=== PATIENT | male | born 1950 | race Caucasian/White ===

== ENCOUNTER 2020-09-03 02:55 | Inpatient (IN) | payer MEDICARE, OTHER, SELFPAY ==
[2020-09-03] VITALS (9 sets, daily range): BP systolic 120–144; BP diastolic 85–95; PULSE 86–93; RESP 14–167; TEMP 33.8–36.9; O2SAT 94–100; BMI 18.2
--- NOTE | ~2020-09-03 | CT_ITS ---
EXAMINATION: CT HEAD WITHOUT CONTRAST CLINICAL INFORMATION: Hallucinations. COMPARISON: None. TECHNIQUE: Contiguous helical images of the brain were obtained without IV contrast. Multiplanar reconstructions were performed. DLP: 670 mGy-cm. FINDINGS: There are no pathologic extra-axial fluid collections. The lateral, third, fourth ventricles are nondilated and concordant with the appearance of the sulci. There is no evidence for acute intraparenchymal hemorrhage or infarct. There is neither mass nor mass effect. There is no shift of midline structures. The paranasal sinuses and mastoid air cells are clear. There are no osseous lesions. CT/CT head/brain wo con IMPRESSION: No evidence for acute intracranial injury. Automated exposure control (Care Dose) Adjustment of the mA and/or kv according to patient size (this includes techniques or standardized protocols for targeted exams where dose is matched to indication / reason for exam; i.e. extremities or head).
--- NOTE | ~2020-09-03 | MR_ITS ---
EXAMINATION: MR BRAIN WITHOUT CONTRAST CLINICAL INFORMATION: Altered mental status. COMPARISON: CT head from 09/03/2020. TECHNIQUE: MRI of the brain was obtained using routine sequences without contrast. FINDINGS: No focal restricted diffusion is demonstrated to suggest acute or subacute cerebral ischemia. No evidence of acute or chronic hemorrhagic products on heme-sensitive imaging. Scattered periventricular and deep white matter T2 FLAIR hyperintensities consistent with mild underlying migraine angiopathy. Proportional prominence of the ventricles and sulcal spaces without evidence of obstructive hydrocephalus. No abnormal mass effect. No midline shift. Normal appearance of the pituitary gland. No abnormalities of the posterior fossa with normal appearance of the brainstem and cerebellum. Normal positioning of the cerebellar tonsils. Normal arterial and venous vascular flow voids are present. Normal, homogeneous marrow signal. Mild mucosal thickening of the paranasal sinuses. No signal abnormalities within the mastoids. MR/MR head/brain wo con IMPRESSION: 1. No acute intracranial abnormalities. 2. Mild underlying microangiopathy and generalized cerebral volume loss.
--- NOTE | ~2020-09-03 | MR_ITS ---
EXAMINATION: MR ABDOMEN WITHOUT CONTRAST CLINICAL INFORMATION: History of left nephrectomy for renal cell carcinoma. COMPARISON: None. TECHNIQUE: MR abdomen is performed without gadolinium contrast. Patient refused contrast administration. Motion limited evaluation. FINDINGS: LUNG BASES: The visualized lung bases are unremarkable. LIVER, GALLBLADDER, AND BILIARY TREE: The liver is normal in size, smooth in contour, and normal in signal. No biliary ductal dilatation. There is a 1.2 cm T2 bright lesion in the right lobe of the liver.. The gallbladder is unremarkable with no evidence of gallbladder wall thickening, or obvious pericholecystic inflammatory changes. PANCREAS: Unremarkable. SPLEEN: Unremarkable. ADRENAL GLANDS: Grossly unremarkable. KIDNEYS AND URETERS: Left nephrectomy. Normal size and shape of the right kidney. No hydronephrosis. No perinephric inflammation. Exophytic T2 bright lesions are seen. Upper pole cyst measures 1.1 cm. 0.4 cm midpole cyst. No mass in the left nephrectomy bed. GASTROINTESTINAL TRACT: No bowel obstruction. No ascites or fluid collection. ABDOMINAL WALL: No significant hernia is appreciated. LYMPH NODES: No lymphadenopathy. VASCULAR: Unremarkable. OSSEOUS STRUCTURES: Marrow signal normal. MR/MR abdomen wo con IMPRESSION: Limited study due to lack of IV contrast and motion. Status post left nephrectomy. Likely simple cysts in the right kidney. No lymphadenopathy. No mass in the left nephrectomy bed.
--- NOTE | 2020-09-03 03:46 | ED.PSYCH ---
HPI - Psych General Chief Complaint: Psychiatric Symptoms Stated Complaint: SEC 12 CRISIS Time Seen by Provider: 09/03/20 03:46 Source: patient Mode of arrival: EMS Limitations: altered mental status History of Present Illness HPI Narrative: Patient with ?psychotic disorder been having visual hallucinations thinking people in the house not eating well details are not available patient was seen by N at scene and Section 12 no head injury details of home situation not available at this time patient denies any suicidal ideation no auditory hallucination Related Data Allergies Allergy/AdvReac Type Severity Reaction Status Date / Time No Known Allergies Allergy Verified 09/03/20 03:47 Review of Systems Review of Systems: Constitutional : No Fever, No Chills ENT/Mouth : No Ear Pain, No Nasal Congestion, No sore throat Eyes: No Eye Pain, No Swelling, No Redness Cardiovascular : No Chest Pain, No SOB Respiratory : No Cough, No Sputum, No Dyspnea Gastrointestinal : No Nausea, No Vomiting, No Diarrhea, No Hematochezia, No Melena Genitourinary : No Dysuria, No Urinary Frequency, No Hematuria Musculoskeletal : No Myalgias Skin : No Skin Lesions, No rash Neuro : No Weakness, No Numbness, No Paresthesias, No Dizziness, No Headache Psych : positive Anxiety, neg Depression, neg SI/HI, hallucinations+ Heme/Lymph: No Lymphadenopathy Endocrine : No Polyuria, No Polydipsia Yes Unobtainable due to mental status PMFSH Past Medical History Surgical History History of kidney surgery Social History Social History Smoked in Last 30 Days: Yes Use of substances other than those prescribed or required for medical reasons: No Advance Directives: No Advance Directives Information Provided: No Physical Exam Vital Signs: Vital Signs: Last Vital Signs Temp 98.4 F 09/03/20 03:01 Pulse 93 09/03/20 03:01 Resp 16 09/03/20 03:01 BP 128/88 09/03/20 03:01 Pulse Ox 94 09/03/20 03:01 Body Mass Index 18.2 Const: General: comfortable and no acute distress Orientation/consciousness: oriented to person and oriented to place HENMT: Head: Yes normocephalic and Yes atraumatic Ears: hearing grossly normal bilaterally General nose exam: Normal external nose present Face and sinus: Yes normal facial exam Mouth: Normal oral and palatal mucosa present Eyes: General: appearance normal, both eyes and all related structures Neck: Neck: Yes normal visual inspection and Yes no meningeal signs Chest: Chest palpation & inspection: normal palpation of entire chest wall Resp: Effort & Inspection: normal respiratory effort Auscultation: clear to auscultation bilaterally, no crackles, no rales and no rhonchi Cardio: Palpation: normal PMI Rate: regular rate Rhythm: regular rhythm Heart sounds: S1 normal heart sound present and S2 normal heart sound present Peripheral pulses: Peripheral pulses 2+ throughout GI: Inspection: Yes normal to inspection Palpation (GI): Soft to palpation and nontender Percussion: Yes normal to percussion Auscultation: normal bowel sounds : General: Yes no CVA tenderness Back/Spine/Pelvis: Back: no CVA tenderness Thoracic/Lumbar Spine: thoracic and lumbar spine normal to inspection Skin: General skin exam: no rashes or lesions noted Neuro: General: oriented to person, oriented to place, gait normal, tone normal, moves all extremities, Normal light touch and pain sensation, no meningeal signs, no focal motor deficits, CN's II-XI intact bilaterally and normal sensation to monofilament Extrem: General: Yes normal to inspection, Yes no pedal edema and Yes no calf tenderness Psych: Appearance: grossly normal Mental Status: other (Confused) Speech and movement: Normal speech and movement present Affect: Indifferent affect present Attitude: cooperative Thought process: Circumstantial thought process present Thought content: Hallucination(s) present Insight: Limited insight present (Psych) Judgement: Limited judgement present (Psych) MDM - Psych MDM Narrative Medical decision making narrative: Patient with nonspecific psychotic disorder already Section 12 by [facility] for inpatient psych admission lab workup is in a stable CT scan head is negative for any acute Lab Data Attestation: I reviewed the patient's lab results. Result diagrams: 09/03/20 04:25 09/03/20 04:25 Labs: Lab Results 09/03/20 09/03/20 09/03/20 Range/Units 04:25 04:25 04:25 WBC 6.3 (4.8-10.8) X10*3/uL RBC 5.09 (4.60-5.80) X10*6/uL Hgb 15.2 (14.0-18.0) g/dl Hct 45.6 (42-52) % MCV 89.6 (80-98) fL MCH 29.9 (27.0-33.0) pg MCHC 33.3 (31.0-36.0) g/dl RDW 12.2 (11.0-16.0) % Plt Count 152 L (160-400) X10*3/uL MPV 10.4 (9.4-12.4) fL Immature Gran % (Auto) 0.2 (0.0-0.4) % Neut % (Auto) 65.7 (45-73) % Lymph % (Auto) 21.7 (20-40) % [place] % (Auto) 10.8 (2-11) % Eos % (Auto) 1.1 (0-4) % Baso % (Auto) 0.5 (0-2) % Lymph # (Auto) 1.4 (1.2-4.9) X10*3/uL [place] # (Auto) 0.7 (0.1-1.2) X10*3/uL Eos # (Auto) 0.1 (0.0-0.4) X10*3/uL Baso # (Auto) 0.0 (0.0-0.2) X10*3/uL Abs Immat Gran (auto) 0.01 (0.00-0.03) X10*3/uL Absolute Neuts (auto) 4.1 (2.0-8.3) X10*3/uL Absolute Nucleated RBC 0.000 (0.0-0.012) X10*3/uL Nucleated RBC % (auto) 0.0 (0.0-0.2) /100WBC PT 13.8 H (10.8-13.0) SEC INR 1.2 H (0.9-1.1) Sodium 141 (135-145) mmol/L Potassium 4.0 (3.3-5.1) mmol/L Chloride 105 (96-108) mmol/L Carbon Dioxide 29 (22-29) mmol/L Anion Gap 11 L (12-20) BUN 32 H (9-16) mg/dL Creatinine 1.22 (0.5-1.4) mg/dL Estim Creat Clear Calc 43.9 Estimated GFR 59 Random Glucose 86 (60-115) mg/dL Calcium 8.7 (8.4-10.2) mg/dL Total Bilirubin 0.6 (0.0-1.0) mg/dL Direct Bilirubin 0.3 (0.0-0.5) mg/dL AST 20 (5-37) U/L ALT 16 (0-40) U/L Alkaline Phosphatase 43 (39-117) U/L Total Protein 5.5 L (6.5-8.0) g/dL Albumin 3.6 (3.5-5.0) g/dL COVID-19 (TIO) (Negative) COVID-19 Clin Com 09/03/20 Range/Units 04:25 WBC (4.8-10.8) X10*3/uL RBC (4.60-5.80) X10*6/uL Hgb (14.0-18.0) g/dl Hct (42-52) % MCV (80-98) fL MCH (27.0-33.0) pg MCHC (31.0-36.0) g/dl RDW (11.0-16.0) % Plt Count (160-400) X10*3/uL MPV (9.4-12.4) fL Immature Gran % (Auto) (0.0-0.4) % Neut % (Auto) (45-73) % Lymph % (Auto) (20-40) % [place] % (Auto) (2-11) % Eos % (Auto) (0-4) % Baso % (Auto) (0-2) % Lymph # (Auto) (1.2-4.9) X10*3/uL [place] # (Auto) (0.1-1.2) X10*3/uL Eos # (Auto) (0.0-0.4) X10*3/uL Baso # (Auto) (0.0-0.2) X10*3/uL Abs Immat Gran (auto) (0.00-0.03) X10*3/uL Absolute Neuts (auto) (2.0-8.3) X10*3/uL Absolute Nucleated RBC (0.0-0.012) X10*3/uL Nucleated RBC % (auto) (0.0-0.2) /100WBC PT (10.8-13.0) SEC INR (0.9-1.1) Sodium (135-145) mmol/L Potassium (3.3-5.1) mmol/L Chloride (96-108) mmol/L Carbon Dioxide (22-29) mmol/L Anion Gap (12-20) BUN (9-16) mg/dL Creatinine (0.5-1.4) mg/dL Estim Creat Clear Calc Estimated GFR Random Glucose (60-115) mg/dL Calcium (8.4-10.2) mg/dL Total Bilirubin (0.0-1.0) mg/dL Direct Bilirubin (0.0-0.5) mg/dL AST (5-37) U/L ALT (0-40) U/L Alkaline Phosphatase (39-117) U/L Total Protein (6.5-8.0) g/dL Albumin (3.5-5.0) g/dL COVID-19 (TIO) Negative (Negative) COVID-19 Clin Com See Note Imaging Data CT scan - head: Radiologist's impression: CLINICAL INFORMATION: Hallucinations. COMPARISON: None. TECHNIQUE: Contiguous helical images of the brain were obtained without IV contrast. Multiplanar reconstructions were performed. DLP: 670 mGy-cm. FINDINGS: There are no pathologic extra-axial fluid collections. The lateral, third, fourth ventricles are nondilated and concordant with the appearance of the sulci. There is no evidence for acute intraparenchymal hemorrhage or infarct. There is neither mass nor mass effect. There is no shift of midline structures. The paranasal sinuses and mastoid air cells are clear. There are no osseous lesions. CT/CT head/brain wo con IMPRESSION: No evidence for acute intracranial injury. Automated exposure control (Care Dose) Adjustment of the mA and/or kv according to patient size (this includes techniques or standardized protocols for targeted exams where dose is matched to indication / reason for exam; i.e. extremities or head). ECG Data Attestation: I personally reviewed and interpreted this ECG as follows: Interpretation: Normal sinus rhythm heart rate 85 beats per minute normal intervals normal axis no acute ischemic changes impression normal EKG
--- NOTE | 2020-09-03 03:48 | ECG_ITS ---
Test Reason : PHYC Blood Pressure : / mmHG Vent. Rate : 085 BPM Atrial Rate : 085 BPM P-R Int : 142 ms QRS Dur : 094 ms QT Int : 366 ms P-R-T Axes : 075 026 046 degrees QTc Int : 435 ms Normal sinus rhythm Normal ECG No previous ECGs available Referred By: Truman Sanches Electronically Signed By:ZAIRA GARRISON MD
[2020-09-03 04:30] LABS: MANUAL DIFF FLAG NO
[2020-09-03 04:31] LABS: Basophils Percent Auto 0.5 % (0-2); Eosinophils Absolute Auto 0.1 X10*3/uL (0.0-0.4); Eosinophils Percent Auto 1.1 % (0-4); Hematocrit 45.6 % (42-52); Hemoglobin 15.2 g/dl (14.0-18.0); Imm Gran Abs Auto 0.01 X10*3/uL (0.00-0.03); Imm Gran Pct Auto 0.2 % (0.0-0.4); Lymphocytes Absolute Auto 1.4 X10*3/uL (1.2-4.9); Lymphocytes Percent Auto 21.7 % (20-40); Mean Corpuscular HGB Conc 33.3 g/dl (31.0-36.0); Mean Corpuscular Hemoglobin 29.9 pg (27.0-33.0); Mean Corpuscular Volume 89.6 fL (80-98); Mean Platelet Volume 10.4 fL (9.4-12.4); Monocytes Absolute Auto 0.7 X10*3/uL (0.1-1.2); Monocytes Percent Auto 10.8 % (2-11); Neutrophils Absolute Auto 4.1 X10*3/uL (2.0-8.3); Neutrophils Percent Auto 65.7 % (45-73); Platelet Count 152 X10*3/uL (160-400); Red Blood Count 5.09 X10*6/uL (4.60-5.80); Red Cell Distribution Width 12.2 % (11.0-16.0); White Blood Count 6.3 X10*3/uL (4.8-10.8)
[2020-09-03 04:37] LABS: INTERNATIONAL NORM RATIO 1.2 (0.9-1.1); Prothrombin Time 13.8 SEC (10.8-13.0)
[2020-09-03 04:46] LABS: COVID-19 Test Negative (Negative); IDNOW Serial# 9DD0AD1C
[2020-09-03 04:55] LABS: Alanine Aminotransferase 16 U/L (0-40); Albumin Level 3.6 g/dL (3.5-5.0); Alkaline Phosphatase 43 U/L (39-117); Anion Gap 11 (12-20); Aspartate Amino Transferase 20 U/L (5-37); Bilirubin Direct 0.3 mg/dL (0.0-0.5); Bilirubin Total 0.6 mg/dL (0.0-1.0); Blood Urea Nitrogen 32 mg/dL (9-16); Calcium 8.7 mg/dL (8.4-10.2); Carbon Dioxide 29 mmol/L (22-29); Chloride 105 mmol/L (96-108); Creatinine Clr Calc Pharmacy 43.9; Estimated Glomerular Filt Rate 59; Glucose Random 86 mg/dL (60-115); Sodium 141 mmol/L (135-145); Total Protein 5.5 g/dL (6.5-8.0)
--- NOTE | 2020-09-03 07:34 | PC.NURSE ---
PT RESTING PEACEFULLY IN THE STRETCHER, ALERT AND ORIENTED, SKIN PWD, RESPIRATIONS EVEN AND UNLABORED. PT AWARE OF PLAN TO BE PLACED IN A [facility]. PT DENIES SI/HI AT THIS TIME. SITTER AT BEDSIDE
--- NOTE | 2020-09-03 21:33 | PC.NURSE ---
PT RESTING IN BED SKIN PWD RESPIRATIONS EVEN UNLABORED. FLAT AFFECT, PLEASANT WITH RN, OFFERS NO COMPLAINTS AT THIS TIME. PO AT BEDSIDE FOR SAFETY, S12 BEDSEARCH CONTINUES.
--- NOTE | 2020-09-04 00:09 | PC.NURSE ---
PT AMB TO BATHROOM STEADY GAIT, PO FLUIDS ENCOURAGED. OFFERS NO COMPLAINTS AT THIS TIME. PO AT BEDSIDE FOR SAFETY, GERIPSYCH BEDSEARCH CONTINUE.S
--- NOTE | 2020-09-04 01:47 | PC.NURSE ---
PT RESTING IN BED EYES CLOSED SKIN PWD RESPIRATIONS EVEN UNLABORED. GERBITAYCH BEDSEARCH CONTINUES. PO AT BEDSIDE FOR SAFETY.
[2020-09-04 05:10] VITALS: BP 138/97; PULSE 84; RESP 18; TEMP 36.9; O2SAT 96
[2020-09-04 07:37] VITALS: BP 156/113; PULSE 92; RESP 16; O2SAT 97
--- NOTE | 2020-09-04 08:30 | PC.NURSE ---
pt able to state first name, unable to state last name or date of or where he is. pt avoids eye contact and does not respond verbally after providing first name, mostly stares blankly into space. respiratory effort is unlabored and rate is even. pt unable to respond when asked if he is in pain. pt unable to say if he is experiencing visual/auditory/tactile hallucinations when asked. pt reluctant to move voluntarily/assist in having vitals taken, this nurses needed to lift his arm to put blood pressure cuff on. pt resumed sleeping in right lateral position after assessment. no signs of distress noted at this time. call josue in reach.
--- NOTE | 2020-09-04 08:47 | PC.NURSE ---
when asked if he is feeling suicidal/homicidal at this time pt ?chooses not to respond. md vizcaino
--- NOTE | 2020-09-04 09:30 | PC.NURSE ---
pt did not eat any breakfast this morning. fluids encouraged. aware
[2020-09-04 14:21] VITALS: BP 141/99; PULSE 98; RESP 14; TEMP 36.8; O2SAT 96
--- NOTE | 2020-09-04 14:45 | PC.NURSE ---
Pt daughter Alicia ([phone]) called for an update on [facility]. She was informed that we are continuing to search for a bed in a [facility]. Alicia requested to be informed when a bed is found. Case management/MD notified.
--- NOTE | 2020-09-04 20:48 | PC.NURSE ---
Pt ate 2 sandwiches and gingerale. Tolerating po well. Making slight eye contact, cooperative.
--- NOTE | 2020-09-04 21:50 | PC.NURSE ---
Pt transferred into hospital bed, offered and changed into clean hospital pants. Pt denied assistance w/ personal hygeine (i.e brushing teeth, ect), even after encouragement. Pt ambulated w/ steady but slow gait to bathroom, unsuccessful attempt to collect urine sample. Pt requested and given cup of water. PO at bedside. Pt is calm, cooperative, flat affect remains but is making some eye contact, able to express some needs at this time. Denies si/hi.
[2020-09-04 22:58] VITALS: BP 128/92; PULSE 102; RESP 16; TEMP 36.7; O2SAT 98
[2020-09-05 06:00] VITALS: BP 139/102; PULSE 96; RESP 15; O2SAT 96
[2020-09-05 14:57] VITALS: BP 123/98; PULSE 74; RESP 14; O2SAT 97
--- NOTE | 2020-09-05 19:56 | PC.NURSE ---
Report taken from Brett, this RN resuming care. Pt found wandering the halls, not wearing a mask. This RN provided pt with a mask and explained to him that he is not able to wander the halls. Pt redirected back into room. This RN explaining to pt that a urine sample was never obtained, yet ordered. Pt provided with a urinal but refusing to provide urine sample at this time. Pt refusing VS at this time, denies pain, appears calm but not cooperative with care. Dinner remains on tray, untouched, pt encouraged by this RN to eat, assisted into bed. Sitter at bedside, continue to monitor.
[2020-09-05 20:05] VITALS: BP 148/101; PULSE 103; RESP 18; O2SAT 96
--- NOTE | 2020-09-05 20:09 | PC.NURSE ---
Urine sample obtained by electrical engineering technician. VSS. Sitter at bedside, continue to monitor.
[2020-09-05 20:26] LABS: Appearance Urine CLEAR; Color Urine YELLOW; Glucose Urine UA NEG (NEG); Leukocyte Esterase Urine NEG (NEG); Nitrite Urine NEG (NEG); PH 5.5 (5.0-8.0); Specific Gravity - Urine >= 1.030 (1.005-1.025); Urine Blood TRACE (NEG); Urine Ketones NEG (NEG); Urine Protein TRACE MG/DL (NEG-TRACE)
[2020-09-05 20:32] LABS: Bacteria Urine 1+ /LPF; WBC Urine 0 /HPF (0-4)
[2020-09-05 20:33] LABS: Calcium Oxalate Crystals Urine 1+ /LPF
[2020-09-06 06:03] VITALS: BP 122/96; PULSE 113; RESP 16; O2SAT 95
--- NOTE | 2020-09-06 08:30 | PC.NURSE ---
Section 12 Bedsearch. Psych consult to be ordered. Pt with flat affect, frequently getting out of room and attempts to enter other patients room needing much re direction. Does not verbally respond back when spoken to. Guarded.
[2020-09-06] MEDS: LORazepam 2 MG/ML VIAL IM (09:47)
--- NOTE | 2020-09-06 09:47 | PC.NURSE ---
Addendum entered by Yulisa Bowen 09/06/20 18:45: Pt also noted to be disorganized and not oriented Original Note: Pt intrusive going into peoples rooms, uncooperative, raising hands to staff, unable to redirect, Ativan 2mg IM given to left Deltoid
[2020-09-06 09:49] VITALS: BP 148/98; PULSE 112; RESP 16; O2SAT 97
--- NOTE | 2020-09-06 10:39 | PC.NURSE ---
Pt sleeping, vitals stable
--- NOTE | 2020-09-06 12:18 | P.CNGPS_ITS ---
Geriatric Psych - HPI History of Present Illness Date of Service: 09/06/20 Chief complaint: SEC 12 CRISIS Narrative: Patient is a 70 year old male currently awaiting psychiatric admission for recent onset of auditory and visual hallucinations. Information for evaluation obtained via chart review, collateral from daughter and review of crisis evaluation. Patient was asleep after having been medicated for agitation, when this automotive service writer went to see him. Per daughter, at baseline patient is quite independent, high functioning and social person. She reports that a little over a month ago patient was told that his eye sight was going to progressively get worse and there was no treatment for it and since then she noted that he became increasingly depressed--decreased motivation, decreased self worth, decreased appetite, increasing sadness and increasing isolation. She notes that about a week or so ago he began to make statements about people watching him, fearing little people were in his home with cameras taking pictures of him. 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 Daughter states patient has never been psychiatrically admitted, but her mother reported to her that about 20 years ago patient had a very similar presentation which mother reported as a nervous breakdown and patient stayed at his mother's home for about 2 months until sx subsided. Mother reported that patient was prescribed medications during this time, but he did not take them. Patient denies any knowledge of geovanna or hypomania episodes. She states patient does not like to take medications and is usually somewhat skeptical of medical providers. Daughter notes that patient has lost about 15 lbs in the last month. During time in the ED patient has been requiring redirection due to wandering behaviors, earalier today required IM lorazepam due to increasing agitation and attempting to hit staff. Per patient observer, patient has not been sleeping well. Geriatric Psychiatry - ROS Review of Systems ROS Unobtainable: Unobtainable due to mental status (asleep ) Geriatric Psychiatry - Results Labs CBC & Chem 7: 09/03/20 04:25 09/03/20 04:25 Labs: Urine 09/05/20 Range/Units 20:08 Urine Color YELLOW Urine Appearance CLEAR Urine pH 5.5 (5.0-8.0) Ur Specific [place] >= 1.030 H (1.005-1.025) Urine Protein TRACE (NEG-TRACE) MG/DL Urine Glucose (UA) NEG (NEG) MG/DL Geriatric Psychiatry - [facility] Surgical History Surgical History History of kidney surgery Social History Social History Smoked in Last 30 Days: Yes Use of substances other than those prescribed or required for medical reasons: No Advance Directives: No Advance Directives Information Provided: No Meds Allergies Allergy/AdvReac Type Severity Reaction Status Date / Time No Known Allergies Allergy Verified 09/03/20 03:47 Active Medications: Current Medications Generic Name Dose Route Start Last Admin Trade Name Freq PRN Reason Stop Dose Admin Lorazepam 1 mg 09/04/20 09:11 Lorazepam 1 Mg Tablet PO Q8H PRN anxiety Non-Formulary Medication 1 tab 09/04/20 09:11 Aspirin-Caffeine [Anacin] PO Q6H PRN Headache Non-Formulary Medication 1 drop 09/04/20 09:15 Brimonidine-Timolol [Combigan] EYE-BOTH BID [facility] Pharmacy Consult 1 each 09/03/20 09:51 Consult Rx Perform Med Rec MISCELLANE ONCE PRN Consult order Home Medications Medication Instructions Recorded Confirmed Last Taken Type aspirin-caffeine [Anacin] 1 tab PO Q6H PRN 09/03/20 09/03/20 Unknown History brimonidine-timolol [Combigan] 1 drp OPHTHALMIC (EYE) BID 09/03/20 09/03/20 Unknown History lorazepam 1 tab PO Q8H PRN 09/04/20 09/04/20 Unknown History Geriatric Psychiatry - Exam Vital Signs and I&O: Vital Signs Temp 98.0 F 09/04/20 22:58 Pulse 112 H 09/06/20 09:49 Resp 16 09/06/20 09:49 BP 148/98 H 09/06/20 09:49 Pulse Ox 97 09/06/20 09:49 Narrative Exam Narrative: patient asleep when this automotive service writer presented to interview. Geriatric Psychiatry - A/P Assessment and plan (1) Major depression with psychotic features: Status: Acute Assessment and Plan: * Risperdal 0.5mg BID and 0.25mg PRN for agitation * Mirtazipine 7.5mg QHS * monitor patient to ensure he is eating and drinking given recent weightloss * provide reassurance as necessary
--- NOTE | 2020-09-06 16:27 | PC.NURSE ---
Pt sleeping since Ativan administration. Up and ambulatory x1 to void and BTB. vitals stable.
[2020-09-06 16:28] VITALS: BP 109/76; PULSE 92; RESP 16; O2SAT 95
--- NOTE | 2020-09-06 16:29 | PC.NURSE ---
Pt did ot eat breakfast or lunch. Pt asleep at this time, assessments done but limited d/t pt sleeping at this time. While pt awake, pt did not verbally respond
[2020-09-06 17:45] VITALS: BP 125/74; PULSE 93; RESP 14
--- NOTE | 2020-09-06 18:44 | PC.NURSE ---
BHN in to perfom MSU however pt is still asleep at this time
--- NOTE | 2020-09-06 21:34 | PC.NURSE ---
PT UP AND TRYING TO WALK INTO OTHER'S ROOM. PT REDIRECTED BY SITTER. WILL CONTINUE TO MONITOR PT.
--- NOTE | 2020-09-06 22:43 | PC.NURSE ---
SPOKE WITH DAUGHTER FOR UPDATE WITH PT'S APPROVAL.
[2020-09-06] MEDS: Mirtazapine 7.5 MG TABLET PO (23:07)
[2020-09-06 23:29] VITALS: RESP 18
[2020-09-07] MEDS: risperiDONE 0.5 MG TABLET PO ×2 (02:00→20:37)
--- NOTE | 2020-09-07 05:13 | PC.NURSE ---
PT REFUSING MEDS STATING I DON'T TRUST YOU . MD AWARE. PT REMAINS WITH SITTER AT BEDSIDE. WILL CONTINUE TO MONITOR PT.
[2020-09-07] MEDS: risperiDONE 0.25 MG TABLET PO (06:00)
[2020-09-07 07:23] VITALS: PULSE 124; RESP 16; O2SAT 99
--- NOTE | 2020-09-07 08:10 | PC.NURSE ---
pt spoke with daughter Alicia on the phone this morning. pt calm and cooperative when talking on phone. no questions or concerns at this time.
[2020-09-07 08:12] VITALS: RESP 16
--- NOTE | 2020-09-07 09:34 | PC.NURSE ---
pt refusing morning meds (Risperidone 0.5mg) at this time, pt informed that if he changes his mind and wants to take medication to let this nurse know. md vizcaino
[2020-09-07 12:02] VITALS: RESP 16
--- NOTE | 2020-09-07 18:14 | PC.NURSE ---
Pt transferred from main ED, oriented to unit. Pt appears to be paranoid, reporting stories of 'drunks' and people poisoning one another. Pt also stating 'I didn't kill anybody.'
[2020-09-07] MEDS: Mirtazapine 7.5 MG TABLET PO (20:37)
[2020-09-08 06:00] VITALS: BP 107/71; PULSE 106; RESP 18; TEMP 36.4; O2SAT 95
[2020-09-08 09:14] VITALS: BP 107/76; PULSE 109; RESP 16; TEMP 36.3; O2SAT 99
[2020-09-08] MEDS: risperiDONE 0.5 MG TABLET PO ×2 (09:37→22:04)
--- NOTE | 2020-09-08 15:07 | PC.NURSE ---
Report received from AMISH Montanez. Pt currently standing in the common area speaking with [facility]. Noé. Continues to be a [facility] bed search
--- NOTE | 2020-09-08 16:57 | PC.NURSE ---
Pt asleep at current. No signs of distress. RR even and unlabored.
[2020-09-08 19:02] VITALS: BP 108/83; PULSE 108; RESP 16; TEMP 36.4; O2SAT 98
--- NOTE | 2020-09-08 21:57 | PC.ADMIT ---
this is the first M5 admission for this 70 year old male. legal cv. dx mdd with psychosis. presents as quiet and guarded but does endorse ''seeing things'' but states it is due to ''my eye gtts'' pt is prescribed timolol for for glaucoma. medication is not available from pharmacy and needs to be brought in. 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 reports hx of cancer and had left kidney removed. reports ''about a year ago'' ''at [facility]'' when asked if he has any providers he could not identify ''i can't remember'' ''i haven't seen anyone because of COVID'' patient did allow t/w to call his pharmacy to verify meds and providers. timolol was prescribed by a dr. rola baugh and ativan by abimael mann when questioned as to who gwen mann was responded ''a who saw me quickly'' no drug or alcohol reported. although completed nursing assessment refused to sign releases and appeared paranoid when asked if he wanted his daughter or x notified of admission, was slow to respond and then stated ''they knew i was in the other area, that's enough.
[2020-09-08] MEDS: Mirtazapine 7.5 MG TABLET PO (22:04)
[2020-09-09 05:20] VITALS: BP 127/82; PULSE 116; RESP 16; TEMP 36.2; O2SAT 97
[2020-09-09 07:00] VITALS: BMI 18.2
[2020-09-09 08:30] LABS: Estimated Average Glucose 100 mg/dL; Hemoglobin A1c % 5.1 %
[2020-09-09 08:45] LABS: Alanine Aminotransferase 12 U/L (0-40); Albumin Level 3.7 g/dL (3.5-5.0); Alkaline Phosphatase 54 U/L (39-117); Aspartate Amino Transferase 15 U/L (5-37); Bilirubin Direct 0.3 mg/dL (0.0-0.5); Bilirubin Total 0.4 mg/dL (0.0-1.0); Cholesterol 138 mg/dL; HDL Cholesterol 39 mg/dL; LDL Cholesterol Calculated 89 mg/dl; Magnesium 2.2 mg/dL (1.6-2.6); Total Protein 5.7 g/dL (6.5-8.0); Triglycerides 50 mg/dL
[2020-09-09] MEDS: risperiDONE 0.5 MG TABLET PO (08:52)
[2020-09-09 09:07] LABS: Thyroid Stimulating Hormone 1.12 uIU/mL (0.32-4.0)
[2020-09-09 09:23] LABS: Folate 5.9 ng/mL (> or = 4.0); Vitamin B12 446 pg/mL (200-900)
[2020-09-09 11:37] LABS: Alanine Aminotransferase 11 U/L (0-40); Albumin Level 3.4 g/dL (3.5-5.0); Alkaline Phosphatase 51 U/L (39-117); Anion Gap 7 (12-20); Aspartate Amino Transferase 13 U/L (5-37); Bilirubin Total 0.5 mg/dL (0.0-1.0); Blood Urea Nitrogen 25 mg/dL (9-16); Calcium 8.7 mg/dL (8.4-10.2); Carbon Dioxide 35 mmol/L (22-29); Chloride 105 mmol/L (96-108); Creatinine Clr Calc Pharmacy 49.2; Estimated Glomerular Filt Rate > 60; Glucose Random 92 mg/dL (60-115); Potassium 3.4 mmol/L (3.3-5.1); Sodium 144 mmol/L (135-145); Total Protein 5.3 g/dL (6.5-8.0)
--- NOTE | 2020-09-09 11:38 | MHC.CLN ---
RE: CONSULT HT 68 WT 120# IBW 154#=/-10% PT IS 78% IBW INDICATES MODERATELY UNDER WT FOR HT; BMI 18.2 PT'S DAUGHTER REPORTED 15# WT LOSS X 1 MONTH R/T DEPRESSION, TRIGGERS FOR 11% SIGNIFICANT WT LOSS X 1 MONTH ESTIMATED NUTRITION NEEDS: 1600-1925KCALS (30-35KCALS/KG), 55G PROTEIN (1.0G/KG), 1650CC H20 LABS: 09/03/20 ALBUMIN WNL, BUN 32 DIET RX: REGULAR-APPROPRIATE PT NOTED TO REFUSE MEALS OCCASIONALLY SINCE ADMISSION RECOMMEND ADDING ENSURE TID TO PROVIDE 1050KCALS (66% EST KCAL NEEDS), 60G PROTEIN MONITOR PO INTAKE CLOSELY WITH WEEKLY WEIGHTS CONSULT RD NEEDED
--- NOTE | 2020-09-09 16:35 | P.HPPS_ITS ---
HPI Chief Complaint: Depression with psychosis Sources of Information: patient interviewed, chart reviewed and crisis/core team assessment reviewed Additional Sources of Information: collateral from daughter Alicia HPI Subjective Notes: Conditional Voluntary Narrative: Mr. Moody is a 70 year-old male who was brought to [facility] ED due to increase anxious mood, paranoid delusions and VH/AH. In the ED, his utox was negative. Head CT unremarkable. Apparently, pt had previous episode of psychosis several years ago. On the unit, Mr. Gabriel presents as guarded, disheveled and somewhat malnourished. He reports he is here in psychiatric unit due to increase anxiety because he is worried about his health, specially his eye sight. Pt has open glaucoma, recently prescribed new eye drops, and pt worried he may be coming blind. However, he states he has not been told that he is legally blind and he is able to see some papers that were given to him on admission. He reports seeing people at home, which he thought were there but notes that if daughter couldn't see them, maybe they were not there. However, pt does appear fairly guarded and not fully forthcoming. He reports his sleep and appetite are fine. He denies suicidal or homicidal ideation. Per daughter- pt has been presenting as increasingly more anxious, paranoid with VH/AH for about 3-4 weeks. Daughter denies recent changes in memory and cognition in the past years. Daughter reports that pt able to pay bills on his own and care for himself. However, this pattern chart writer completed MOCA today and pt scored 9/30 significant difficulty with visuospatial/executive function, recall (0/5), attention, orientation (thought month is DECEMBER), language fluency (only 3 words in one minute). Pt does have a bilat resting tremor. Past Psychiatric History: Inpt: none OP: none Suicide attempts: none Medication trials: none Medical Evaluation Reviewed: Yes [facility] Surgical History History of kidney surgery Family History: none Social History: . Lives alone. Has one daughter. Substance History: none Trauma History: none Diagnostics Vital Signs (24Hr): Vital Signs - 24 hr 09/08/20 19:02 09/09/20 05:20 Temperature 97.5 F 97.2 F Pulse Rate 108 H 116 H Respiratory Rate 16 16 Blood Pressure 108/83 127/82 Pulse Oximetry 98 97 Body Mass Index 18.2 Labs Results: 09/03/20 04:25 09/09/20 10:55 Labs: Laboratory Results - last 48 hr 09/09/20 09/09/20 09/09/20 07:46 07:46 07:46 Sodium Potassium Chloride Carbon Dioxide Anion Gap BUN Creatinine Estim Creat Clear Calc Estimated GFR Random Glucose Estimat Average Glucose 100 Hemoglobin A1c % 5.1 Calcium Magnesium 2.2 Total Bilirubin 0.4 Direct Bilirubin 0.3 AST 15 ALT 12 Alkaline Phosphatase 54 D Total Protein 5.7 L Albumin 3.7 Triglycerides 50 Cholesterol 138 LDL Cholesterol, Calc 89 HDL Cholesterol 39 Vitamin B12 446 Folate 5.9 TSH 1.12 09/09/20 10:55 Sodium 144 Potassium 3.4 Chloride 105 Carbon Dioxide 35 H Anion Gap 7 L BUN 25 H Creatinine 1.09 Estim Creat Clear Calc 49.2 Estimated GFR > 60 Random Glucose 92 Estimat Average Glucose Hemoglobin A1c % Calcium 8.7 Magnesium Total Bilirubin 0.5 Direct Bilirubin AST 13 ALT 11 Alkaline Phosphatase 51 Total Protein 5.3 L Albumin 3.4 L Triglycerides Cholesterol LDL Cholesterol, Calc HDL Cholesterol Vitamin B12 Folate TSH Imaging Radiology Impressions: ITS Impressions Head CT 09/03/20 03:56 IMPRESSION: No evidence for acute intracranial injury. Automated exposure control (Care Dose) Adjustment of the mA and/or kv according to patient size (this includes techniques or standardized protocols for targeted exams where dose is matched to indication / reason for exam; i.e. extremities or head). Meds/Allergies Meds Home Medications Acetaminophen (Acetaminophen 325 Mg Tablet) 650 mg PO Q6H PRN PRN Reason: Headache/Pain Mild Scale (1-3) Al Hydroxide/Mg Hydroxide (Magnesium Hydrox/Alum Hydrox 30 Ml Oral.Susp) 30 ml PO Q6H PRN PRN Reason: Heartburn/Nausea Brimonidine Tartrate (Brimonidine Tartrate 0.2% Oph 5 Ml Bottle) 1 drop EYE- BOTH BID JOSE RAFAEL Last Admin: 09/10/20 09:11 Dose: Not Given Documented by: Hydroxyzine HCl (Hydroxyzine Hcl 25 Mg Tablet) 25 mg PO BEDTIME PRN PRN Reason: Anxiety Magnesium Hydroxide (Milk Of Magnesia 30 Ml Oral.Susp) 30 ml PO DAILY PRN PRN Reason: Constipation Mirtazapine (Mirtazapine 7.5 Mg Tablet) 7.5 mg PO BEDTIME [facility] Last Admin: 09/09/20 22:33 Dose: Not Given Documented by: Pharmacy Consult (Consult Rx Perform Med Rec) 1 each MISCELLANE ONCE PRN PRN Reason: Consult order Risperidone (Risperidone 1 Mg Tablet) 1 mg PO BID [facility] Last Admin: 09/10/20 08:35 Dose: 1 mg Documented by: Timolol Maleate (Timolol Maleate 0.5 % Oph Catina 5 Ml Drbtl) 1 drop EYE-BOTH BID [facility] Last Admin: 09/10/20 09:11 Dose: Not Given Documented by: Trazodone HCl (Trazodone Hcl 25 Mg Halftab) 25 mg PO BEDTIME PRN PRN Reason: Insomnia Allergies Allergies Allergy/AdvReac Type Severity Reaction Status Date / Time No Known Allergies Allergy Verified 09/03/20 03:47 Mental Status Exam Mental Status Exam Narrative: Appearance: thin, wearing hospital gown, poor hygiene, disheveled, in NAD Behavior: guarded, suspicious Psychomotor: some retardation noted Speech: clear, slowed rate/rhythm/volume, spontaneous TP: derailment at times TC: anxious about his health, AH/VH Mood: anxious Affect:congruent, fearful and guarded SI:denies HI:denies AH/VH:seeing some people Delusions:paranoid delusions Insight/judgment:impaired x 2 Memory/cog: alert, significant impairment in different aspects based on MOCA 9/30 most difficulty with visuo spatial, attention, recall, language fluency. will redo as pt less paranoid/anxious Assessment & Plan Assessment & Plan (1) Major depression with psychotic features: Status: Acute Code(s): F32.3 - Major depressive disorder, single episode, severe with psychotic features Assessment and Plan: will r/o underlying Neurocognitive Disorder, 1. increase risperidone to 1mg po BID Reason for continued inpatient stay Substantial Risk for: inability to function
[2020-09-09 18:00] VITALS: BP 118/81; PULSE 114; TEMP 36.8
[2020-09-10 06:50] VITALS: BP 129/72; PULSE 89; RESP 16; TEMP 36.9; O2SAT 99
[2020-09-10] MEDS: risperiDONE 1 MG TABLET PO ×2 (08:35→20:53)
--- NOTE | 2020-09-10 15:02 | HO.PSYCHPN ---
Subjective Subjective Date of Service: 09/10/20 Reason For Visit: Depression with psychosis Subjective Notes: Conditional Voluntary Interim History: Pt presents as guarded and suspicious. He reports he stopped risperidone because he had brief episode of palpitation and thinks this was the medications. He reports seeing less people, although continues to present as guarded and disclosing more paranoid ideation to daughter than treatment team. He also appears somatically preoccupied, which daughter reports has been there for decades. He denies SI/HI. Seeing people and worried that they may hurt him. He has been mostly in bed, minimally interactive with peers. Medication Compliance: Yes Side effects from medications: No Attending Groups: No Review of Systems Review of Systems Constitutional : No Fever, No Chills ENT/Mouth : No Ear Pain, No Nasal Congestion, No sore throat Eyes: No Eye Pain, No Swelling, No Redness Cardiovascular : No Chest Pain, No SOB Respiratory : No Cough, No Sputum, No Dyspnea Gastrointestinal : No Nausea, No Vomiting, No Diarrhea, No Hematochezia, No Melena Genitourinary : No Dysuria, No Urinary Frequency, No Hematuria Musculoskeletal : No Myalgias Skin : No Skin Lesions, No rash Neuro : No Weakness, No Numbness, No Paresthesias, No Dizziness, No Headache Psych : positive Anxiety, neg Depression, neg SI/HI, hallucinations+ Heme/Lymph: No Lymphadenopathy Endocrine : No Polyuria, No Polydipsia Yes all other systems are reviewed and are negative and Unobtainable due to mental status (asleep ) Mental Status Exam Mental Status Exam Narrative: Appearance: thin, wearing hospital gown, poor hygiene, disheveled, in NAD Behavior: guarded, suspicious Psychomotor: some retardation noted Speech: clear, slowed rate/rhythm/volume, spontaneous TP: derailment at times TC: anxious about his health, AH/VH Mood: anxious Affect:congruent, fearful and guarded SI:denies HI:denies AH/VH:seeing some people Delusions:paranoid delusions Insight/judgment:impaired x 2 Memory/cog: alert, significant impairment in different aspects based on MOCA 9/30 most difficulty with visuo spatial, attention, recall, language fluency. will redo as pt less paranoid/anxious Diagnostics Vital Signs (24Hr): Vital Signs - 24 hr 09/09/20 18:00 09/10/20 06:50 Temperature 98.2 F 98.5 F Pulse Rate 114 H 89 Respiratory Rate 16 Blood Pressure 118/81 129/72 Pulse Oximetry 99 Body Mass Index 18.2 Labs Results: 09/03/20 04:25 09/09/20 10:55 Labs: Laboratory Results - last 48 hr 09/09/20 09/09/20 09/09/20 07:46 07:46 07:46 Sodium Potassium Chloride Carbon Dioxide Anion Gap BUN Creatinine Estim Creat Clear Calc Estimated GFR Random Glucose Estimat Average Glucose 100 Hemoglobin A1c % 5.1 Calcium Magnesium 2.2 Total Bilirubin 0.4 Direct Bilirubin 0.3 AST 15 ALT 12 Alkaline Phosphatase 54 D Total Protein 5.7 L Albumin 3.7 Triglycerides 50 Cholesterol 138 LDL Cholesterol, Calc 89 HDL Cholesterol 39 Vitamin B12 446 Folate 5.9 TSH 1.12 09/09/20 10:55 Sodium 144 Potassium 3.4 Chloride 105 Carbon Dioxide 35 H Anion Gap 7 L BUN 25 H Creatinine 1.09 Estim Creat Clear Calc 49.2 Estimated GFR > 60 Random Glucose 92 Estimat Average Glucose Hemoglobin A1c % Calcium 8.7 Magnesium Total Bilirubin 0.5 Direct Bilirubin AST 13 ALT 11 Alkaline Phosphatase 51 Total Protein 5.3 L Albumin 3.4 L Triglycerides Cholesterol LDL Cholesterol, Calc HDL Cholesterol Vitamin B12 Folate TSH Imaging Radiology Impressions: ITS Impressions Head CT 09/03/20 03:56 IMPRESSION: No evidence for acute intracranial injury. Automated exposure control (Care Dose) Adjustment of the mA and/or kv according to patient size (this includes techniques or standardized protocols for targeted exams where dose is matched to indication / reason for exam; i.e. extremities or head). Medications Medications Current Medications Generic Name Dose Route Start Last Admin Trade Name Keyonq PRN Reason Stop Dose Admin Acetaminophen 650 mg 09/08/20 20:02 Acetaminophen 325 Mg Tablet PO Q6H PRN Headache/Pain Mild Scale (1-3) Al Hydroxide/Mg Hydroxide 30 ml 09/08/20 20:02 Magnesium Hydrox/Alum Hydrox 30 Ml Oral.Susp PO Q6H PRN Heartburn/Nausea Brimonidine Tartrate 1 drop 09/09/20 21:00 09/10/20 09:11 Brimonidine Tartrate 0.2% Oph 5 Ml Bottle EYE-BOTH Not Given BID JOSE RAFAEL Hydroxyzine HCl 25 mg 09/08/20 20:02 Hydroxyzine Hcl 25 Mg Tablet PO BEDTIME PRN Anxiety Magnesium Hydroxide 30 ml 09/08/20 20:02 Milk Of Magnesia 30 Ml Oral.Susp PO DAILY PRN Constipation Mirtazapine 7.5 mg 09/06/20 23:00 09/09/20 22:33 Mirtazapine 7.5 Mg Tablet PO Not Given BEDTIME [facility] Pharmacy Consult 1 each 09/03/20 09:51 Consult Rx Perform Med Rec MISCELLANE ONCE PRN Consult order Risperidone 1 mg 09/09/20 21:00 09/10/20 08:35 Risperidone 1 Mg Tablet PO 1 mg BID [facility] Administration Timolol Maleate 1 drop 09/09/20 21:00 09/10/20 09:11 Timolol Maleate 0.5 % Oph Catina 5 Ml Drbtl EYE-BOTH Not Given BID JOSE RAFAEL Trazodone HCl 25 mg 09/08/20 20:02 Trazodone Hcl 25 Mg Halftab PO BEDTIME PRN Insomnia Allergies Allergies Allergy/AdvReac Type Severity Reaction Status Date / Time No Known Allergies Allergy Verified 09/03/20 03:47 Assessment & Plan Assessment & Plan (1) Major depression with psychotic features: Status: Acute Code(s): F32.3 - Major depressive disorder, single episode, severe with psychotic features Assessment and Plan: will r/o underlying Neurocognitive Disorder, 1. increase risperidone to 1mg po BID Greater than 50% of the session was spent on counseling and/or coordination of care Reason for contiued inpatient stay Substantial Risk for: inability to function
[2020-09-10 18:00] VITALS: BP 110/70; PULSE 91; RESP 16; TEMP 37; O2SAT 97
[2020-09-10] MEDS: Mirtazapine 7.5 MG TABLET PO (20:53)
[2020-09-10] MEDS: timoloL maleate 0.5 % Oph Sol 5 ML DRBTL 1 DROP EYE-BOTH (21:33)
[2020-09-11 06:00] VITALS: BP 127/80; PULSE 85; RESP 18; TEMP 36.7; O2SAT 97
[2020-09-11] MEDS: risperiDONE 1 MG TABLET PO ×2 (08:25→22:37)
--- NOTE | 2020-09-11 10:38 | HO.PSYCHPN ---
Subjective Subjective Date of Service: 09/11/20 Reason For Visit: Depression with psychosis Interim History: Pt presents guarded and suspicious. He also appears somatically preoccupied. Refusing to take hospital formulary eye drops with vague suspicion - his own from home eye drops brought in and rx ordered . He denies SI/HI. . He has been mostly in bed, minimally interactive with peers. Review of Systems Review of Systems Constitutional : No Fever, No Chills ENT/Mouth : No Ear Pain, No Nasal Congestion, No sore throat Eyes: No Eye Pain, No Swelling, No Redness Cardiovascular : No Chest Pain, No SOB Respiratory : No Cough, No Sputum, No Dyspnea Gastrointestinal : No Nausea, No Vomiting, No Diarrhea, No Hematochezia, No Melena Genitourinary : No Dysuria, No Urinary Frequency, No Hematuria Musculoskeletal : No Myalgias Skin : No Skin Lesions, No rash Neuro : No Weakness, No Numbness, No Paresthesias, No Dizziness, No Headache Psych : positive Anxiety, neg Depression, neg SI/HI, hallucinations+ Heme/Lymph: No Lymphadenopathy Endocrine : No Polyuria, No Polydipsia Yes all other systems are reviewed and are negative and Unobtainable due to mental status (asleep ) Mental Status Exam Mental Status Exam Narrative: Appearance: thin, wearing hospital gown, poor hygiene, disheveled, in NAD Behavior: guarded, suspicious Psychomotor: some retardation noted Speech: clear, slowed rate/rhythm/volume, spontaneous TP: derailment at times TC: anxious about his health, AH/VH Mood: anxious Affect:congruent, fearful and guarded SI:denies HI:denies AH/VH:seeing some people Delusions:paranoid delusions Insight/judgment:impaired x 2 Memory/cog: alert, significant impairment in different aspects based on MOCA 9/30 most difficulty with visuo spatial, attention, recall, language fluency. will redo as pt less paranoid/anxious Abnormal Motor Activity Signs and Symptoms: Restlessness Judgement: Fair Diagnostics Vital Signs (24Hr): Vital Signs - 24 hr 09/10/20 18:00 09/11/20 06:00 Temperature 98.6 F 98.1 F Pulse Rate 91 85 Respiratory Rate 16 18 Blood Pressure 110/70 127/80 Pulse Oximetry 97 97 Body Mass Index 18.2 Labs Results: 09/03/20 04:25 09/09/20 10:55 Labs: Laboratory Results - last 48 hr 09/09/20 10:55 Sodium 144 Potassium 3.4 Chloride 105 Carbon Dioxide 35 H Anion Gap 7 L BUN 25 H Creatinine 1.09 Estim Creat Clear Calc 49.2 Estimated GFR > 60 Random Glucose 92 Calcium 8.7 Total Bilirubin 0.5 AST 13 ALT 11 Alkaline Phosphatase 51 Total Protein 5.3 L Albumin 3.4 L Imaging Radiology Impressions: ITS Impressions Head CT 09/03/20 03:56 IMPRESSION: No evidence for acute intracranial injury. Automated exposure control (Care Dose) Adjustment of the mA and/or kv according to patient size (this includes techniques or standardized protocols for targeted exams where dose is matched to indication / reason for exam; i.e. extremities or head). Medications Medications Current Medications Generic Name Dose Route Start Last Admin Trade Name Freq PRN Reason Stop Dose Admin Acetaminophen 650 mg 09/08/20 20:02 Acetaminophen 325 Mg Tablet PO Q6H PRN Headache/Pain Mild Scale (1-3) Al Hydroxide/Mg Hydroxide 30 ml 09/08/20 20:02 Magnesium Hydrox/Alum Hydrox 30 Ml Oral.Susp PO Q6H PRN Heartburn/Nausea Hydroxyzine HCl 25 mg 09/08/20 20:02 Hydroxyzine Hcl 25 Mg Tablet PO BEDTIME PRN Anxiety Magnesium Hydroxide 30 ml 09/08/20 20:02 Milk Of Magnesia 30 Ml Oral.Susp PO DAILY PRN Constipation Mirtazapine 7.5 mg 09/06/20 23:00 09/10/20 20:53 Mirtazapine 7.5 Mg Tablet PO 7.5 mg BEDTIME JOSE RAFAEL Administration Pharmacy Consult 1 each 09/03/20 09:51 Consult Rx Perform Med Rec MISCELLANE ONCE PRN Consult order Risperidone 1 mg 09/09/20 21:00 09/11/20 08:25 Risperidone 1 Mg Tablet PO 1 mg BID JOSE RAFAEL Administration Trazodone HCl 25 mg 09/08/20 20:02 Trazodone Hcl 25 Mg Halftab PO BEDTIME PRN Insomnia Allergies Allergies Allergy/AdvReac Type Severity Reaction Status Date / Time No Known Allergies Allergy Verified 09/03/20 03:47 Assessment & Plan Assessment & Plan (1) Major depression with psychotic features: Status: Acute Code(s): F32.3 - Major depressive disorder, single episode, severe with psychotic features Assessment and Plan: Continue current treatment plan: r/o underlying Neurocognitive Disorder, continue increase risperidone to 1mg po BID Greater than 50% of the session was spent on counseling and/or coordination of care Reason for contiued inpatient stay Substantial Risk for: inability to function and med/psych decompensation
[2020-09-11 21:54] VITALS: PULSE 113; TEMP 37.1
[2020-09-11] MEDS: Mirtazapine 7.5 MG TABLET PO (22:37)
[2020-09-12 06:00] VITALS: PULSE 117; TEMP 36.9; O2SAT 97
[2020-09-12 07:50] VITALS: BP 130/89; PULSE 117; RESP 18
[2020-09-12] MEDS: risperiDONE 1 MG TABLET PO ×2 (09:01→20:33)
--- NOTE | 2020-09-12 16:43 | P.PNPSI_ITS ---
Subjective Subjective Date of Service: 09/12/20 Reason For Visit: Depression with psychosis Interim History: Pt presents guarded. He may be thought blocking. He does not answer any questions directly,. Makes statements such as how about all that rain. He still has been reluctant and suspicious about using eye drops. He made statement such as he needed a slip of paper before he could get off his bed. He could not leave his room until he got a pass from doctor but could not elaborate. He denies SI/HI. . He has been mostly in bed, minimally interactive with peers. Medication Compliance: Yes Side effects from medications: No Attending Groups: No Review of Systems Review of Systems Constitutional :Thin, gaunt undernourished, No Fever, No Chills ENT/Mouth : No Ear Pain, No Nasal Congestion, No sore throat Eyes: No Eye Pain, No Swelling, No Redness Cardiovascular : No Chest Pain, No SOB Respiratory : No Cough, No Sputum, No Dyspnea Gastrointestinal : No Nausea, No Vomiting, No Diarrhea, No Hematochezia, No Melena Genitourinary : No Dysuria, No Urinary Frequency, No Hematuria Musculoskeletal : No Myalgias Skin : No Skin Lesions, No rash Neuro : No Weakness, No Numbness, No Paresthesias, No Dizziness, No Headache Psych : positive Anxiety, neg Depression, neg SI/HI, hallucinations+ Heme/Lymph: No Lymphadenopathy Endocrine : No Polyuria, No Polydipsia Yes all other systems are reviewed and are negative and Unobtainable due to mental status (asleep ) Mental Status Exam Mental Status Exam Narrative: Appearance: thin, wearing hospital gown, poor hygiene, disheveled, in NAD Behavior: guarded, suspicious Psychomotor: some retardation noted Speech: clear, slowed rate/rhythm/volume, spontaneous TP: derailment at times TC: anxious about his health, AH/VH Mood: anxious Affect:congruent, fearful and guarded SI:denies HI:denies AH/VH:seeing some people Delusions:paranoid delusions Insight/judgment:impaired x 2 Memory/cog: alert, significant impairment in different aspects based on MOCA 9/30 most difficulty with visuo spatial, attention, recall, language fluency. will redo as pt less paranoid/anxious Patient Appearance: Disheveled and Unkempt Level of Consciousness: Awake Patient Behavior: Guarded and Confused Mood Description: Calm, Suspicious and Withdrawn Affect Description: Suspicious and Withdrawn Patient Cognition Impaired: Yes Ability to Follow Directions: Fair Speech Pattern: Impoverished Memory Description: Remote Impaired, Immediate Impaired and Plumbing Service Technician Impaired Thought Process: Incoherent and Illogical Judgement: Poor Diagnostics Vital Signs (24Hr): Vital Signs - 24 hr 09/11/20 21:54 09/12/20 06:00 09/12/20 07:50 Temperature 98.8 F 98.4 F Pulse Rate 113 H 117 H 117 H Respiratory Rate 18 Blood Pressure 130/89 Pulse Oximetry 97 Body Mass Index 18.2 Labs Results: 09/03/20 04:25 09/09/20 10:55 Labs: Laboratory Results - last 48 hr 09/09/20 10:55 Sodium 144 Potassium 3.4 Chloride 105 Carbon Dioxide 35 H Anion Gap 7 L BUN 25 H Creatinine 1.09 Estim Creat Clear Calc 49.2 Estimated GFR > 60 Random Glucose 92 Calcium 8.7 Total Bilirubin 0.5 AST 13 ALT 11 Alkaline Phosphatase 51 Total Protein 5.3 L Albumin 3.4 L Imaging Radiology Impressions: ITS Impressions Head CT 09/03/20 03:56 IMPRESSION: No evidence for acute intracranial injury. Automated exposure control (Care Dose) Adjustment of the mA and/or kv according to patient size (this includes techniques or standardized protocols for targeted exams where dose is matched to indication / reason for exam; i.e. extremities or head). Medications Medications Current Medications Generic Name Dose Route Start Last Admin Trade Name Freq PRN Reason Stop Dose Admin Acetaminophen 650 mg 09/08/20 20:02 Acetaminophen 325 Mg Tablet PO Q6H PRN Headache/Pain Mild Scale (1-3) Al Hydroxide/Mg Hydroxide 30 ml 09/08/20 20:02 Magnesium Hydrox/Alum Hydrox 30 Ml Oral.Susp PO Q6H PRN Heartburn/Nausea Dorzolamide HCl 1 drop 09/11/20 15:00 09/12/20 14:31 Dorzolamide Hcl 2 % Ophth Catina 10 Ml Drpbtl EYE-RIGHT Not Given TID JOSE RAFAEL Hydroxyzine HCl 25 mg 09/08/20 20:02 Hydroxyzine Hcl 25 Mg Tablet PO BEDTIME PRN Anxiety Magnesium Hydroxide 30 ml 09/08/20 20:02 Milk Of Magnesia 30 Ml Oral.Susp PO DAILY PRN Constipation Mirtazapine 7.5 mg 09/06/20 23:00 09/11/20 22:37 Mirtazapine 7.5 Mg Tablet PO 7.5 mg BEDTIME JOSE RAFAEL Administration Patient Own 1 each 09/11/20 21:00 09/12/20 09:44 Medication (Combigan EYE-BOTH Not Given Eye Drops) BID [facility] Pharmacy Consult 1 each 09/03/20 09:51 Consult Rx Perform Med Rec MISCELLANE ONCE PRN Consult order Risperidone 1 mg 09/09/20 21:00 09/12/20 09:01 Risperidone 1 Mg Tablet PO 1 mg BID JOSE RAFAEL Administration Trazodone HCl 25 mg 09/08/20 20:02 Trazodone Hcl 25 Mg Halftab PO BEDTIME PRN Insomnia Allergies Allergies Allergy/AdvReac Type Severity Reaction Status Date / Time No Known Allergies Allergy Verified 09/03/20 03:47 Assessment & Plan Assessment & Plan (1) Major depression with psychotic features: Status: Acute Code(s): F32.3 - Major depressive disorder, single episode, severe with psychotic features Assessment and Plan: Continue current treatment plan: r/o underlying Neurocognitive Disorder, continue increase risperidone to 1mg po BID r/o metabolic,do kidney dysfunction, infection causing cognitive do ordered CMP, TSH with reflex T4, Mg + level, thiamine level Greater than 50% of the session was spent on counseling and/or coordination of care Reason for contiued inpatient stay Substantial Risk for: inability to function and med/psych decompensation
[2020-09-12] MEDS: Mirtazapine 7.5 MG TABLET PO (20:33)
[2020-09-13 06:40] VITALS: BP 125/86; PULSE 96; RESP 16; TEMP 37.2; O2SAT 95
[2020-09-13] MEDS: risperiDONE 1 MG TABLET PO ×2 (09:11→20:20)
--- NOTE | 2020-09-13 13:05 | HO.PSYCHPN ---
Subjective Subjective Date of Service: 09/13/20 Reason For Visit: Depression with psychosis Interim History: Pt presents somewhat irritable today. He states he is fine yet he has been most day in room, minimal interaction with peers or staff and dismissive when questions asked. He reports less VH/AH. He is somewhat paranoid. He is worried about dose of eye drops and states those may not be right dose. He denies SI/HI. He is unable to care for self requiring significant support from staff to complete ADL and reminder for eating meals. Review of Systems Review of Systems Constitutional :Thin, gaunt undernourished, No Fever, No Chills ENT/Mouth : No Ear Pain, No Nasal Congestion, No sore throat Eyes: No Eye Pain, No Swelling, No Redness Cardiovascular : No Chest Pain, No SOB Respiratory : No Cough, No Sputum, No Dyspnea Gastrointestinal : No Nausea, No Vomiting, No Diarrhea, No Hematochezia, No Melena Genitourinary : No Dysuria, No Urinary Frequency, No Hematuria Musculoskeletal : No Myalgias Skin : No Skin Lesions, No rash Neuro : No Weakness, No Numbness, No Paresthesias, No Dizziness, No Headache Psych : positive Anxiety, neg Depression, neg SI/HI, hallucinations+ Heme/Lymph: No Lymphadenopathy Endocrine : No Polyuria, No Polydipsia Yes all other systems are reviewed and are negative and Unobtainable due to mental status (asleep ) Mental Status Exam Mental Status Exam Narrative: Appearance: thin, wearing hospital gown, poor hygiene, disheveled, in NAD Behavior: guarded, suspicious Psychomotor: some retardation noted Speech: clear, slowed rate/rhythm/volume, spontaneous TP: derailment at times TC: anxious about his health, AH/VH Mood: anxious Affect:congruent, fearful and guarded SI:denies HI:denies AH/VH:seeing some people Delusions:paranoid delusions Insight/judgment:impaired x 2 Memory/cog: alert, significant impairment in different aspects based on MOCA 9/30 most difficulty with visuo spatial, attention, recall, language fluency. will redo as pt less paranoid/anxious Diagnostics Vital Signs (24Hr): Vital Signs - 24 hr 09/13/20 06:40 Temperature 98.9 F Pulse Rate 96 Respiratory Rate 16 Blood Pressure 125/86 Pulse Oximetry 95 Body Mass Index 18.2 Labs Results: 09/03/20 04:25 09/09/20 10:55 Imaging Radiology Impressions: ITS Impressions Head CT 09/03/20 03:56 IMPRESSION: No evidence for acute intracranial injury. Automated exposure control (Care Dose) Adjustment of the mA and/or kv according to patient size (this includes techniques or standardized protocols for targeted exams where dose is matched to indication / reason for exam; i.e. extremities or head). Medications Medications Current Medications Generic Name Dose Route Start Last Admin Trade Name Freq PRN Reason Stop Dose Admin Acetaminophen 650 mg 09/08/20 20:02 Acetaminophen 325 Mg Tablet PO Q6H PRN Headache/Pain Mild Scale (1-3) Al Hydroxide/Mg Hydroxide 30 ml 09/08/20 20:02 Magnesium Hydrox/Alum Hydrox 30 Ml Oral.Susp PO Q6H PRN Heartburn/Nausea Dorzolamide HCl 1 drop 09/11/20 15:00 09/13/20 09:14 Dorzolamide Hcl 2 % Ophth Catina 10 Ml Drpbtl EYE-RIGHT Not Given TID [facility] Hydroxyzine HCl 25 mg 09/08/20 20:02 Hydroxyzine Hcl 25 Mg Tablet PO BEDTIME PRN Anxiety Magnesium Hydroxide 30 ml 09/08/20 20:02 Milk Of Magnesia 30 Ml Oral.Susp PO DAILY PRN Constipation Mirtazapine 7.5 mg 09/06/20 23:00 09/12/20 20:33 Mirtazapine 7.5 Mg Tablet PO 7.5 mg BEDTIME JOSE RAFAEL Administration Patient Own 1 each 09/11/20 21:00 09/13/20 09:14 Medication (Combigan EYE-BOTH Not Given Eye Drops) BID [facility] Pharmacy Consult 1 each 09/03/20 09:51 Consult Rx Perform Med Rec MISCELLANE ONCE PRN Consult order Risperidone 1 mg 09/09/20 21:00 09/13/20 09:11 Risperidone 1 Mg Tablet PO 1 mg BID JOSE RAFAEL Administration Trazodone HCl 25 mg 09/08/20 20:02 Trazodone Hcl 25 Mg Halftab PO BEDTIME PRN Insomnia Allergies Allergies Allergy/AdvReac Type Severity Reaction Status Date / Time No Known Allergies Allergy Verified 09/03/20 03:47 Assessment & Plan Assessment & Plan (1) Major depression with psychotic features: Status: Acute Code(s): F32.3 - Major depressive disorder, single episode, severe with psychotic features Assessment and Plan: Continue current treatment plan: r/o underlying Neurocognitive Disorder, continue risperidone to 1mg po BID Greater than 50% of the session was spent on counseling and/or coordination of care Reason for contiued inpatient stay Substantial Risk for: inability to function
[2020-09-13 18:00] VITALS: BP 131/81; PULSE 106; RESP 16; TEMP 36.9; O2SAT 95
[2020-09-13] MEDS: Mirtazapine 7.5 MG TABLET PO (20:20)
[2020-09-14 06:15] VITALS: BP 136/93; PULSE 98; RESP 16; TEMP 37.2; O2SAT 96
[2020-09-14] MEDS: risperiDONE 1 MG TABLET PO ×2 (08:34→20:50)
[2020-09-14 14:47] LABS: Alanine Aminotransferase 11 U/L (0-40); Albumin Level 3.8 g/dL (3.5-5.0); Alkaline Phosphatase 70 U/L (39-117); Anion Gap 12 (12-20); Aspartate Amino Transferase 12 U/L (5-37); Bilirubin Total 0.4 mg/dL (0.0-1.0); Blood Urea Nitrogen 29 mg/dL (9-16); Calcium 8.8 mg/dL (8.4-10.2); Carbon Dioxide 29 mmol/L (22-29); Chloride 107 mmol/L (96-108); Creatinine Clr Calc Pharmacy 50.1; Estimated Glomerular Filt Rate > 60; Glucose Random 86 mg/dL (60-115); Potassium 3.7 mmol/L (3.3-5.1); Sodium 144 mmol/L (135-145)
--- NOTE | 2020-09-14 15:06 | HO.PSYCHPN ---
Subjective Subjective Date of Service: 09/14/20 Reason For Visit: Depression with psychosis Interim History: Pt presents as less irritable today. He struggles to verbalize reasons for this admission. He states it was because of my vision. He reports sleeping and eating well. He states the summer is going by so fast. He continues to present with significant disorientation and confusion worsening at times. He declined assistance to shower thinking he already had shower yesterday, which is not the case. He has not shower since admission. He reports feeling less anxious. He denies VH/AH. He is somewhat guarded and suspicious but not reporting overt delusional content. He has been mostly in his room. He was encourage to be more visible, which he agreed. No behavioral concerns. Schedule MRI w/o contrast for further work of neurocognitive decline. Review of Systems Review of Systems Constitutional :Thin, gaunt undernourished, No Fever, No Chills ENT/Mouth : No Ear Pain, No Nasal Congestion, No sore throat Eyes: No Eye Pain, No Swelling, No Redness Cardiovascular : No Chest Pain, No SOB Respiratory : No Cough, No Sputum, No Dyspnea Gastrointestinal : No Nausea, No Vomiting, No Diarrhea, No Hematochezia, No Melena Genitourinary : No Dysuria, No Urinary Frequency, No Hematuria Musculoskeletal : No Myalgias Skin : No Skin Lesions, No rash Neuro : No Weakness, No Numbness, No Paresthesias, No Dizziness, No Headache Psych : positive Anxiety, neg Depression, neg SI/HI, hallucinations+ Heme/Lymph: No Lymphadenopathy Endocrine : No Polyuria, No Polydipsia Yes all other systems are reviewed and are negative and Unobtainable due to mental status (asleep ) Mental Status Exam Mental Status Exam Narrative: Appearance: thin, wearing hospital gown, poor hygiene, disheveled, in NAD Behavior: guarded, suspicious Psychomotor: some retardation noted Speech: clear, slowed rate/rhythm/volume, spontaneous TP: derailment at times TC: anxious about his health, confused about why he is in hospital or plan Mood: better Affect:congruent, guarded SI:denies HI:denies AH/VH:less VH-some people Delusions:paranoid delusions Insight/judgment:impaired x 2 Memory/cog: alert, significant impairment in different aspects based on MOCA 9/30 most difficulty with visuo spatial, attention, recall, language fluency. will redo as pt less paranoid/anxious Diagnostics Vital Signs (24Hr): Vital Signs - 24 hr 09/13/20 18:00 09/14/20 06:15 Temperature 98.5 F 98.9 F Pulse Rate 106 H 98 Respiratory Rate 16 16 Blood Pressure 131/81 136/93 H Pulse Oximetry 95 96 Body Mass Index 18.2 Labs Results: 09/03/20 04:25 09/14/20 14:07 Labs: Laboratory Results - last 48 hr 09/14/20 14:07 Sodium 144 Potassium 3.7 Chloride 107 Carbon Dioxide 29 Anion Gap 12 BUN 29 H Creatinine 1.07 Estim Creat Clear Calc 50.1 Estimated GFR > 60 Random Glucose 86 Calcium 8.8 Total Bilirubin 0.4 AST 12 ALT 11 Alkaline Phosphatase 70 D Total Protein 6.0 L Albumin 3.8 Imaging Radiology Impressions: ITS Impressions Head CT 09/03/20 03:56 IMPRESSION: No evidence for acute intracranial injury. Automated exposure control (Care Dose) Adjustment of the mA and/or kv according to patient size (this includes techniques or standardized protocols for targeted exams where dose is matched to indication / reason for exam; i.e. extremities or head). Medications Medications Current Medications Generic Name Dose Route Start Last Admin Trade Name Freq PRN Reason Stop Dose Admin Acetaminophen 650 mg 09/08/20 20:02 Acetaminophen 325 Mg Tablet PO Q6H PRN Headache/Pain Mild Scale (1-3) Al Hydroxide/Mg Hydroxide 30 ml 09/08/20 20:02 Magnesium Hydrox/Alum Hydrox 30 Ml Oral.Susp PO Q6H PRN Heartburn/Nausea Dorzolamide HCl 1 drop 09/11/20 15:00 09/14/20 14:54 Dorzolamide Hcl 2 % Ophth Catina 10 Ml Drpbtl EYE-RIGHT Not Given TID JOSE RAFAEL Hydroxyzine HCl 25 mg 09/08/20 20:02 Hydroxyzine Hcl 25 Mg Tablet PO BEDTIME PRN Anxiety Magnesium Hydroxide 30 ml 09/08/20 20:02 Milk Of Magnesia 30 Ml Oral.Susp PO DAILY PRN Constipation Mirtazapine 7.5 mg 09/06/20 23:00 09/13/20 20:20 Mirtazapine 7.5 Mg Tablet PO 7.5 mg BEDTIME JOSE RAFAEL Administration Patient Own 1 each 09/11/20 21:00 09/14/20 08:59 Medication (Combigan EYE-BOTH Not Given Eye Drops) BID COUNTS [facility]CLUDE [facility] BEDS AT [facility] Pharmacy Consult 1 each 09/03/20 09:51 Consult Rx Perform Med Rec MISCELLANE ONCE PRN Consult order Risperidone 1 mg 09/09/20 21:00 09/14/20 08:34 Risperidone 1 Mg Tablet PO 1 mg BID JOSE RAFAEL Administration Trazodone HCl 25 mg 09/08/20 20:02 Trazodone Hcl 25 Mg Halftab PO BEDTIME PRN Insomnia Allergies Allergies Allergy/AdvReac Type Severity Reaction Status Date / Time No Known Allergies Allergy Verified 09/03/20 03:47 Assessment & Plan Assessment & Plan (1) Major depression with psychotic features: Status: Acute Code(s): F32.3 - Major depressive disorder, single episode, severe with psychotic features Assessment and Plan: Continue current treatment plan: r/o underlying Neurocognitive Disorder, continue risperidone to 1mg po BID Greater than 50% of the session was spent on counseling and/or coordination of care Reason for contiued inpatient stay Substantial Risk for: inability to function
[2020-09-14 18:00] VITALS: BP 107/77; PULSE 89; TEMP 37.2
--- NOTE | 2020-09-14 18:05 | PC.NURSE ---
Refusal of MRI-patient declined having an MRI. He was focused on his insurance coverage as well as making sure his daughter was aware. Daughter into visit but patient continued to decline to go. Daughter will be into visit again on Sunday evening. ? having procedure done on dayshift as patient appears become increasingly confused as evening progresses as well as exhibiting increased paranoia.
[2020-09-14] MEDS: Mirtazapine 7.5 MG TABLET PO (20:50)
[2020-09-15 06:05] VITALS: BP 127/81; PULSE 98; RESP 18; TEMP 37.1; O2SAT 97
[2020-09-15 08:19] LABS: Syphilis Screen Nonreactive (Nonreactive)
[2020-09-15] MEDS: risperiDONE 1 MG TABLET PO ×2 (09:50→20:51)
--- NOTE | 2020-09-15 15:11 | HO.PSYCHPN ---
Subjective Subjective Date of Service: 09/15/20 Reason For Visit: Depression with psychosis Subjective Notes: Conditional Voluntary Interim History: Pt continues to present as guarded. He has been mostly in bed. He declined MRI stating that he wants to make sure he won't be charge for it. He continues to present as confused in that he thinks it is december. He is unclear as to why he is here, stating he is here because of his sight. He denies VH, but continues to present somewhat paranoid and guarded. He declines taking shower, again despite being encouraged to do so. Pt denies SI/HI. Needs significant support to complete ADLs. Medication Compliance: Yes Side effects from medications: No Attending Groups: No Review of Systems Review of Systems Constitutional :Thin, gaunt undernourished, No Fever, No Chills ENT/Mouth : No Ear Pain, No Nasal Congestion, No sore throat Eyes: No Eye Pain, No Swelling, No Redness Cardiovascular : No Chest Pain, No SOB Respiratory : No Cough, No Sputum, No Dyspnea Gastrointestinal : No Nausea, No Vomiting, No Diarrhea, No Hematochezia, No Melena Genitourinary : No Dysuria, No Urinary Frequency, No Hematuria Musculoskeletal : No Myalgias Skin : No Skin Lesions, No rash Neuro : No Weakness, No Numbness, No Paresthesias, No Dizziness, No Headache Psych : positive Anxiety, neg Depression, neg SI/HI, hallucinations+ Heme/Lymph: No Lymphadenopathy Endocrine : No Polyuria, No Polydipsia Yes all other systems are reviewed and are negative Mental Status Exam Mental Status Exam Narrative: Appearance: thin, wearing hospital gown, poor hygiene, disheveled, in NAD Behavior: guarded, suspicious Psychomotor: some retardation noted Speech: clear, slowed rate/rhythm/volume, spontaneous TP: derailment at times TC: anxious about his health, confused about why he is in hospital or plan Mood: better Affect:congruent, guarded SI:denies HI:denies AH/VH:less VH-some people Delusions:paranoid delusions Insight/judgment:impaired x 2 Memory/cog: alert, significant impairment in different aspects based on MOCA 9/30 most difficulty with visuo spatial, attention, recall, language fluency. will redo as pt less paranoid/anxious Diagnostics Vital Signs (24Hr): Vital Signs - 24 hr 09/14/20 18:00 09/15/20 06:05 Temperature 98.9 F 98.7 F Pulse Rate 89 98 Respiratory Rate 18 Blood Pressure 107/77 127/81 Pulse Oximetry 97 Body Mass Index 18.2 Labs Results: 09/03/20 04:25 09/14/20 14:07 Labs: Laboratory Results - last 48 hr 09/14/20 09/14/20 14:07 14:07 Sodium 144 Potassium 3.7 Chloride 107 Carbon Dioxide 29 Anion Gap 12 BUN 29 H Creatinine 1.07 Estim Creat Clear Calc 50.1 Estimated GFR > 60 Random Glucose 86 Calcium 8.8 Total Bilirubin 0.4 AST 12 ALT 11 Alkaline Phosphatase 70 D Total Protein 6.0 L Albumin 3.8 T.pallidum Ab (EIA) Nonreactive Imaging Radiology Impressions: ITS Impressions Head CT 09/03/20 03:56 IMPRESSION: No evidence for acute intracranial injury. Automated exposure control (Care Dose) Adjustment of the mA and/or kv according to patient size (this includes techniques or standardized protocols for targeted exams where dose is matched to indication / reason for exam; i.e. extremities or head). Medications Medications Current Medications Generic Name Dose Route Start Last Admin Trade Name Freq PRN Reason Stop Dose Admin Acetaminophen 650 mg 09/08/20 20:02 Acetaminophen 325 Mg Tablet PO Q6H PRN Headache/Pain Mild Scale (1-3) Al Hydroxide/Mg Hydroxide 30 ml 09/08/20 20:02 Magnesium Hydrox/Alum Hydrox 30 Ml Oral.Susp PO Q6H PRN Heartburn/Nausea Dorzolamide HCl 1 drop 09/11/20 15:00 09/15/20 14:10 Dorzolamide Hcl 2 % Ophth Catina 10 Ml Drpbtl EYE-RIGHT Not Given TID [facility] Hydroxyzine HCl 25 mg 09/08/20 20:02 Hydroxyzine Hcl 25 Mg Tablet PO BEDTIME PRN Anxiety Magnesium Hydroxide 30 ml 09/08/20 20:02 Milk Of Magnesia 30 Ml Oral.Susp PO DAILY PRN Constipation Mirtazapine 7.5 mg 09/06/20 23:00 09/14/20 20:50 Mirtazapine 7.5 Mg Tablet PO 7.5 mg BEDTIME [facility] Administration Patient Own 1 each 09/11/20 21:00 09/15/20 09:53 Medication (Combigan EYE-BOTH Not Given Eye Drops) BID [facility] Pharmacy Consult 1 each 09/03/20 09:51 Consult Rx Perform Med Rec MISCELLANE ONCE PRN Consult order Risperidone 1 mg 09/09/20 21:00 09/15/20 09:50 Risperidone 1 Mg Tablet PO 1 mg BID [facility] Administration Trazodone HCl 25 mg 09/08/20 20:02 Trazodone Hcl 25 Mg Halftab PO BEDTIME PRN Insomnia Allergies Allergies Allergy/AdvReac Type Severity Reaction Status Date / Time No Known Allergies Allergy Verified 09/03/20 03:47 Assessment & Plan Assessment & Plan (1) Major depression with psychotic features: Status: Acute Code(s): F32.3 - Major depressive disorder, single episode, severe with psychotic features Assessment and Plan: Continue current treatment plan: r/o underlying Neurocognitive Disorder, continue risperidone to 1mg po BID Greater than 50% of the session was spent on counseling and/or coordination of care Reason for contiued inpatient stay Substantial Risk for: inability to function
[2020-09-15 18:00] VITALS: BP 110/75; PULSE 92; RESP 16; TEMP 36.7; O2SAT 96
[2020-09-15] MEDS: Mirtazapine 7.5 MG TABLET PO (20:52)
[2020-09-15] MEDS: Dorzolamide HCl 2 % Ophth Sol 10 ML DRPBTL 1 DROP EYE-RIGHT (21:06)
[2020-09-16 06:00] VITALS: BP 122/82; PULSE 95; RESP 16; TEMP 36.7; O2SAT 97
[2020-09-16 07:00] VITALS: BMI 19.1
--- NOTE | 2020-09-16 08:37 | HO.PSYCHPN ---
Subjective Subjective Date of Service: 09/17/20 Reason For Visit: Depression with psychosis Interim History: Pt mostly in bed, disoriented to situation in that he reports being in unit for his sight. He is guarded and appears not forthcoming, reported to daughter that he thinks his room is bugged. He denies SI/HI. He states he is tired because he eat too much last week- does not think this is unlikely re: being tired from excess food intake a week prior. He declined head MRI- which was explain that it would be covered by his insurance. Pt states what's the point, there is nothing that can be done for my condition. When asked what he thinks is his condition. he reports abdominal craps. However, pt explain is an MRI of his head. ONce again he did not seem to see how these two are not connected. Review of Systems Review of Systems Constitutional :Thin, gaunt undernourished, No Fever, No Chills ENT/Mouth : No Ear Pain, No Nasal Congestion, No sore throat Eyes: No Eye Pain, No Swelling, No Redness Cardiovascular : No Chest Pain, No SOB Respiratory : No Cough, No Sputum, No Dyspnea Gastrointestinal : No Nausea, No Vomiting, No Diarrhea, No Hematochezia, No Melena Genitourinary : No Dysuria, No Urinary Frequency, No Hematuria Musculoskeletal : No Myalgias Skin : No Skin Lesions, No rash Neuro : No Weakness, No Numbness, No Paresthesias, No Dizziness, No Headache Psych : positive Anxiety, neg Depression, neg SI/HI, hallucinations+ Heme/Lymph: No Lymphadenopathy Endocrine : No Polyuria, No Polydipsia Yes all other systems are reviewed and are negative and Unobtainable due to mental status (asleep ) Mental Status Exam Mental Status Exam Narrative: Appearance: thin, wearing hospital gown, poor hygiene, disheveled, in NAD Behavior: guarded, suspicious Psychomotor: some retardation noted Speech: clear, slowed rate/rhythm/volume, spontaneous TP: derailment at times TC: anxious about his health, confused about why he is in hospital or plan Mood: better Affect:congruent, guarded SI:denies HI:denies AH/VH:less VH-some people Delusions:paranoid delusions Insight/judgment:impaired x 2 Memory/cog: alert, significant impairment in different aspects based on MOCA 03/03 most difficulty with visuo spatial, attention, recall, language fluency. will redo as pt less paranoid/anxious Diagnostics Vital Signs (24Hr): Vital Signs - 24 hr 09/16/20 16:07 09/17/20 06:00 Temperature 98.4 F 98.7 F Pulse Rate 110 H 99 Respiratory Rate 16 Blood Pressure 137/84 118/83 Pulse Oximetry 99 Body Mass Index 19.1 Labs Results: 09/03/20 04:25 09/14/20 14:07 Imaging Radiology Impressions: ITS Impressions Head CT 09/03/20 03:56 IMPRESSION: No evidence for acute intracranial injury. Automated exposure control (Care Dose) Adjustment of the mA and/or kv according to patient size (this includes techniques or standardized protocols for targeted exams where dose is matched to indication / reason for exam; i.e. extremities or head). Medications Medications Current Medications Generic Name Dose Route Start Last Admin Trade Name Freq PRN Reason Stop Dose Admin Acetaminophen 650 mg 09/08/20 20:02 Acetaminophen 325 Mg Tablet PO Q6H PRN Headache/Pain Mild Scale (1-3) Al Hydroxide/Mg Hydroxide 30 ml 09/08/20 20:02 Magnesium Hydrox/Alum Hydrox 30 Ml Oral.Susp PO Q6H PRN Heartburn/Nausea Dorzolamide HCl 1 drop 09/11/20 15:00 09/16/20 20:43 Dorzolamide Hcl 2 % Ophth Catina 10 Ml Drpbtl EYE-RIGHT 1 drop TID JOSE RAFAEL Administration Hydroxyzine HCl 25 mg 09/08/20 20:02 Hydroxyzine Hcl 25 Mg Tablet PO BEDTIME PRN Anxiety Magnesium Hydroxide 30 ml 09/08/20 20:02 Milk Of Magnesia 30 Ml Oral.Susp PO DAILY PRN Constipation Patient Own 1 each 09/11/20 21:00 09/16/20 20:48 Medication (Combigan EYE-BOTH Not Given Eye Drops) BID [facility] Pharmacy Consult 1 each 09/03/20 09:51 Consult Rx Perform Med Rec MISCELLANE ONCE PRN Consult order Risperidone 1 mg 09/17/20 09:00 Risperidone 1 Mg Tablet PO DAILY JOSE RAFAEL Risperidone 2 mg 09/16/20 21:00 09/16/20 20:39 Risperidone 2 Mg Tablet PO 2 mg BEDTIME JOSE RAFAEL Administration Trazodone HCl 25 mg 09/16/20 21:00 09/16/20 20:39 Trazodone Hcl 25 Mg Halftab PO 25 mg BEDTIME JOSE RAFAEL Administration Allergies Allergies Allergy/AdvReac Type Severity Reaction Status Date / Time No Known Allergies Allergy Verified 09/03/20 03:47 Assessment & Plan Assessment & Plan (1) Major depression with psychotic features: Status: Acute Code(s): F32.3 - Major depressive disorder, single episode, severe with psychotic features Assessment and Plan: 1. r/o underlying Neurocognitive Disorder r/o paraneoplastic syndrome given pt's hx of renal carcinoma 2. Increase risperidone to 1mg po daily and 2mg po qhs. 3. Pending MRI w/o contrast as pt had allergy to dye in the past. 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 daughter think this is very sudden, unlike his father. Pt had hx of renal carcinoma, unclear current status, on differential should include paraneoplastic syndromes common in renal carcinoma that presents with limbic encephalitis which acute/rapid onset of cognitive impairment and psychosis. Greater than 50% of the session was spent on counseling and/or coordination of care Reason for contiued inpatient stay Substantial Risk for: inability to function
[2020-09-16] MEDS: risperiDONE 1 MG TABLET PO (10:20)
[2020-09-16 16:07] VITALS: BP 137/84; PULSE 110; TEMP 36.9
[2020-09-16] MEDS: traZODone HCL 25 MG HALFTAB PO (20:39)
[2020-09-16] MEDS: risperiDONE 2 MG TABLET PO (20:39)
[2020-09-16] MEDS: Dorzolamide HCl 2 % Ophth Sol 10 ML DRPBTL 1 DROP EYE-RIGHT (20:43)
[2020-09-17 06:00] VITALS: BP 118/83; PULSE 99; RESP 16; TEMP 37.1; O2SAT 99
[2020-09-17] MEDS: risperiDONE 1 MG TABLET PO (09:35)
--- NOTE | 2020-09-17 14:47 | P.PNPSI_ITS ---
Subjective Subjective Date of Service: 09/27/20 Reason For Visit: Depression with psychosis Interim History: Pt mostly in room. minimally interactive with peers. He is guarded and hesitant about doing MRI. He is very suspicious about further medical work up and reason for doing it despite explaining rationale. Pt denies SI/HI. He denies VH/AH. He is sleeping at night. continue to present with significant memory/cognitive impairment. Review of Systems Review of Systems No recent cold or flu-like illness. Yes all other systems are reviewed and are negative (pt denies) and Unobtainable due to mental status (asleep ) Constitutional: Reports no additional constitutional complaints, Reports fatigue, Reports lethargy, Reports poor appetite, Reports weakness and Reports weight loss Eyes: Reports no additional eye complaints Reports system reviewed and no additional complaints, except as documented Cardiovascular: Reports no additional cardiovascular complaints Respiratory: Reports no additional respiratory complaints Gastrointestinal: Reports no additional gastrointestinal complaints and Reports constipation Genitourinary: Reports no additional male genitourinary complaints Musculoskeletal: Reports no additional musculoskeletal complaints Skin/Breast: Reports system reviewed and no additional complaints, except as docu Reports behavioral changes, Reports confusion and Reports weakness Psychiatric: Reports no additional psychiatric complaints, Reports abnormal sleep pattern, Reports anxiety, Reports behavioral changes, Reports confusion, Reports depression (denies), Reports difficulty concentrating and Reports other (anergy) Endocrine: Reports no additional endocrine complaints and Reports fatigue Hematologic/Lymphatic: Reports no additional hematologic/lymphatic complaints Allergic/Immunologic: Reports no additional allergic/immunologic complaints Mental Status Exam Mental Status Exam Narrative: Appearance: thin, casually groomed, improved hygiene, in NAD Behavior: somewhat guarded, irritable at times Psychomotor: no retardation or agitation noted Speech: clear, slowed rate/rhythm/volume, spontaneous TP: more linear TC: anxious about his health, confused about why he is in hospital or plan Mood: better Affect:slightly brighter SI:denies HI:denies AH/VH:denies Delusions:less paranoid delusions Insight/judgment:impaired x 2 Memory/cog: alert, significant impairment in different aspects based on MOCA 9/30 most difficulty with visuo spatial, attention, recall, language fluency. will redo as pt less paranoid/anxious Diagnostics Vital Signs (24Hr): Vital Signs - 24 hr 09/26/20 17:29 09/27/20 06:05 Temperature 98.4 F 98.4 F Pulse Rate 93 94 Respiratory Rate 16 16 Blood Pressure 122/85 120/82 Pulse Oximetry 95 95 Body Mass Index 19.1 Labs Results: 09/03/20 04:25 09/14/20 14:07 Imaging Radiology Impressions: ITS Impressions Head CT 09/03/20 03:56 IMPRESSION: No evidence for acute intracranial injury. Automated exposure control (Care Dose) Adjustment of the mA and/or kv according to patient size (this includes techniques or standardized protocols for targeted exams where dose is matched to indication / reason for exam; i.e. extremities or head). Brain MRI 09/20/20 10:13 IMPRESSION: 1. No acute intracranial abnormalities. 2. Mild underlying microangiopathy and generalized cerebral volume loss. Medications Medications Current Medications Generic Name Dose Route Start Last Admin Trade Name Freq PRN Reason Stop Dose Admin Acetaminophen 650 mg 09/08/20 20:02 09/19/20 18:05 Acetaminophen 325 Mg Tablet PO 650 mg Q6H PRN Administration Headache/Pain Mild Scale (1-3) Al Hydroxide/Mg Hydroxide 30 ml 09/08/20 20:02 09/25/20 16:02 Magnesium Hydrox/Alum Hydrox 30 Ml Oral.Susp PO 30 ml Q6H PRN Administration Heartburn/Nausea Dorzolamide HCl 1 drop 09/11/20 15:00 09/27/20 09:09 Dorzolamide Hcl 2 % Ophth Catina 10 Ml Drpbtl EYE-RIGHT Not Given TID [facility] Hydroxyzine HCl 25 mg 09/08/20 20:02 09/21/20 00:50 Hydroxyzine Hcl 25 Mg Tablet PO 25 mg BEDTIME PRN Administration Anxiety Magnesium Hydroxide 30 ml 09/08/20 20:02 09/27/20 13:09 Milk Of Magnesia 30 Ml Oral.Susp PO 30 ml DAILY PRN Administration Constipation Patient Own 1 each 09/11/20 21:00 09/27/20 09:09 Medication (Combigan EYE-BOTH Not Given Eye Drops) BID [facility] Pharmacy Consult 1 each 09/03/20 09:51 Consult Rx Perform Med Rec MISCELLANE ONCE PRN Consult order Risperidone 1 mg 09/17/20 09:00 09/27/20 08:35 Risperidone 1 Mg Tablet PO 1 mg DAILY JOSE RAFAEL Administration Risperidone 2 mg 09/16/20 21:00 09/26/20 20:33 Risperidone 2 Mg Tablet PO 2 mg BEDTIME JOSE RAFAEL Administration Trazodone HCl 25 mg 09/16/20 21:00 09/26/20 20:38 Trazodone Hcl 25 Mg Halftab PO Not Given BEDTIME JOSE RAFAEL Venlafaxine HCl 37.5 mg 09/23/20 09:00 09/27/20 08:35 Venlafaxine Hcl Er 37.5 Mg Cap.Er.24h PO 37.5 mg DAILY JOSE RAFAEL Administration Allergies Allergies Allergy/AdvReac Type Severity Reaction Status Date / Time No Known Allergies Allergy Verified 09/03/20 03:47 Assessment & Plan Assessment & Plan (1) Paraneoplastic syndrome: Status: Acute Assessment and Plan: Pending further MRI of pelvis/abdomen investigate status of renal carcinoma as pt current psychiatric symptoms including somewhat acute cognitive/memory impairments, 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 1. continue current medications. (2) Major depression with psychotic features: Status: Acute Code(s): F32.3 - Major depressive disorder, single episode, severe with psychotic features Greater than 50% of the session was spent on counseling and/or coordination of care Reason for contiued inpatient stay Substantial Risk for: inability to function
[2020-09-17 19:35] VITALS: BP 117/81; PULSE 92; TEMP 37.1
[2020-09-17] MEDS: risperiDONE 2 MG TABLET PO (21:26)
[2020-09-17] MEDS: traZODone HCL 25 MG HALFTAB PO (21:27)
[2020-09-18 06:21] VITALS: BP 110/73; PULSE 98; RESP 18; TEMP 36.7; O2SAT 95
[2020-09-18] MEDS: risperiDONE 1 MG TABLET PO (08:54)
[2020-09-18 18:25] VITALS: BP 120/96; PULSE 120; TEMP 37
--- NOTE | 2020-09-18 19:48 | HO.PSYCHPN ---
Subjective Subjective Date of Service: 09/18/20 Reason For Visit: Depression with psychosis Subjective Notes: Conditional Voluntary Interim History: Team attempting to reschedule MRI for 09/20. Pt agreeable stating he Just could not in attempt on 09/17. Agrees to prn Lorazepam to assist in anxiety mgt. In bed, awakens easily, alert, talkative with confusion at times, anergic. Medication Compliance: Yes Side effects from medications: No Attending Groups: No Review of Systems Review of Systems Yes all other systems are reviewed and are negative (denies) Reports confusion Psychiatric: Reports anxiety and Reports confusion Mental Status Exam Mental Status Exam Patient Appearance: Disheveled and Unkempt Patient Orientation: Person and Place Level of Consciousness: Awake Patient Behavior: Guarded, Talkative and Confused Mood Description: Calm, Suspicious and Withdrawn Affect Description: Suspicious, Withdrawn and Flat Patient Cognition Impaired: Yes Ability to Follow Directions: Fair Speech Pattern: Impoverished Memory Description: Remote Impaired, Immediate Impaired and Skilled Nursing Impaired Hallucinations: None Thought Content: positive for [place] Depressive Symptoms: Increased Fatigue and Loss of Energy Judgement: Poor Diagnostics Vital Signs (24Hr): Vital Signs - 24 hr 09/18/20 06:21 09/18/20 18:25 Temperature 98.0 F 98.6 F Pulse Rate 98 120 H Respiratory Rate 18 Blood Pressure 110/73 120/96 H Pulse Oximetry 95 Body Mass Index 19.1 Labs Results: 09/03/20 04:25 09/14/20 14:07 Imaging Radiology Impressions: ITS Impressions Head CT 09/03/20 03:56 IMPRESSION: No evidence for acute intracranial injury. Automated exposure control (Care Dose) Adjustment of the mA and/or kv according to patient size (this includes techniques or standardized protocols for targeted exams where dose is matched to indication / reason for exam; i.e. extremities or head). Medications Medications Current Medications Generic Name Dose Route Start Last Admin Trade Name Freq PRN Reason Stop Dose Admin Acetaminophen 650 mg 09/08/20 20:02 Acetaminophen 325 Mg Tablet PO Q6H PRN Headache/Pain Mild Scale (1-3) Al Hydroxide/Mg Hydroxide 30 ml 09/08/20 20:02 Magnesium Hydrox/Alum Hydrox 30 Ml Oral.Susp PO Q6H PRN Heartburn/Nausea Dorzolamide HCl 1 drop 09/11/20 15:00 04/17/21 14:16 Dorzolamide Hcl 2 % Ophth Catina 10 Ml Drpbtl EYE-RIGHT Not Given TID JOSE RAFAEL Hydroxyzine HCl 25 mg 09/08/20 20:02 Hydroxyzine Hcl 25 Mg Tablet PO BEDTIME PRN Anxiety Lorazepam 2 mg 09/20/20 12:00 Lorazepam 1 Mg Tablet PO 09/20/20 12:01 ONCE ONE Magnesium Hydroxide 30 ml 09/08/20 20:02 Milk Of Magnesia 30 Ml Oral.Susp PO DAILY PRN Constipation Patient Own 1 each 09/11/20 21:00 09/18/20 08:55 Medication (Combigan EYE-BOTH Not Given Eye Drops) BID [facility] Pharmacy Consult 1 each 09/03/20 09:51 Consult Rx Perform Med Rec MISCELLANE ONCE PRN Consult order Risperidone 1 mg 09/17/20 09:00 09/18/20 08:54 Risperidone 1 Mg Tablet PO 1 mg DAILY JOSE RAFAEL Administration Risperidone 2 mg 09/16/20 21:00 09/17/20 21:26 Risperidone 2 Mg Tablet PO 2 mg BEDTIME JOSE RAFAEL Administration Trazodone HCl 25 mg 09/16/20 21:00 09/17/20 21:27 Trazodone Hcl 25 Mg Halftab PO 25 mg BEDTIME JOSE RAFAEL Administration Allergies Allergies Allergy/AdvReac Type Severity Reaction Status Date / Time No Known Allergies Allergy Verified 09/03/20 03:47 Assessment & Plan Assessment & Plan (1) Major depression with psychotic features: Status: Acute Code(s): F32.3 - Major depressive disorder, single episode, severe with psychotic features Assessment and Plan: 1. r/o underlying Neurocognitive Disorder r/o paraneoplastic syndrome given pt's hx of renal carcinoma 2. Recent Increase of risperidone to 1mg po daily and 2mg po qhs. 3. Pending MRI w/o contrast as pt had allergy to dye in the past. May consider CT of abdomen/pelvis and thorax r/o malignacy. Pt reports he was unable to do the MRI on 09/17. Ordered again for 09/20 will offer prn Lorazepam. Greater than 50% of the session was spent on counseling and/or coordination of care Reason for contiued inpatient stay Substantial Risk for: med/psych decompensation
[2020-09-18] MEDS: risperiDONE 2 MG TABLET PO (20:43)
[2020-09-18] MEDS: Dorzolamide HCl 2 % Ophth Sol 10 ML DRPBTL 1 DROP EYE-RIGHT (20:44)
[2020-09-19 05:20] VITALS: BP 127/86; PULSE 110; RESP 16; TEMP 37.2; O2SAT 98
[2020-09-19] MEDS: risperiDONE 1 MG TABLET PO (09:21)
--- NOTE | 2020-09-19 15:08 | HO.PSYCHPN ---
Subjective Subjective Date of Service: 09/19/20 Reason For Visit: Depression with psychosis Subjective Notes: Conditional Voluntary Interim History: Pt reports anxiety at times. Denies depression, Discussed MRI attempt TBS on 4.19. Pt described his experience of 4.16 and concerns. Medication Compliance: Yes Side effects from medications: No Attending Groups: No Review of Systems Review of Systems Yes all other systems are reviewed and are negative (denies) Psychiatric: Reports anxiety, Reports depression (denies), Reports difficulty concentrating and Reports other (anergy) Mental Status Exam Mental Status Exam Patient Appearance: Unkempt Patient Orientation: Person and Place Level of Consciousness: Alert Patient Behavior: Talkative, Anxious and Poor Eye Contact Mood Description: Depressed and Anxious Affect Description: Flat Patient Cognition Impaired: Yes Ability to Follow Directions: Fair Speech Pattern: Spontaneous Speech, Soft-Spoken and Long Pauses Memory Description: Remote Impaired, Immediate 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 Automated exposure control (Care Dose) Adjustment of the mA and/or kv according to patient size (this includes techniques or standardized protocols for targeted exams where dose is matched to indication / reason for exam; i.e. extremities or head). Medications Medications Current Medications Generic Name Dose Route Start Last Admin Trade Name Freq PRN Reason Stop Dose Admin Acetaminophen 650 mg 09/08/20 20:02 Acetaminophen 325 Mg Tablet PO Q6H PRN Headache/Pain Mild Scale (1-3) Al Hydroxide/Mg Hydroxide 30 ml 09/08/20 20:02 Magnesium Hydrox/Alum Hydrox 30 Ml Oral.Susp PO Q6H PRN Heartburn/Nausea Dorzolamide HCl 1 drop 09/11/20 15:00 09/19/20 14:29 Dorzolamide Hcl 2 % Ophth Catina 10 Ml Drpbtl EYE-RIGHT Not Given TID JOSE RAFAEL Hydroxyzine HCl 25 mg 09/08/20 20:02 Hydroxyzine Hcl 25 Mg Tablet PO BEDTIME PRN Anxiety Lorazepam 2 mg 09/20/20 12:00 Lorazepam 1 Mg Tablet PO 09/20/20 12:01 ONCE ONE Magnesium Hydroxide 30 ml 09/08/20 20:02 Milk Of Magnesia 30 Ml Oral.Susp PO DAILY PRN Constipation Patient Own 1 each 09/11/20 21:00 09/19/20 11:32 Medication (Combigan EYE-BOTH Not Given Eye Drops) BID [facility] Pharmacy Consult 1 each 09/03/20 09:51 Consult Rx Perform Med Rec MISCELLANE ONCE PRN Consult order Risperidone 1 mg 09/17/20 09:00 09/19/20 09:21 Risperidone 1 Mg Tablet PO 1 mg DAILY JOSE RAFAEL Administration Risperidone 2 mg 09/16/20 21:00 09/18/20 20:43 Risperidone 2 Mg Tablet PO 2 mg BEDTIME JOSE RAFAEL Administration Trazodone HCl 25 mg 09/16/20 21:00 09/18/20 20:50 Trazodone Hcl 25 Mg Halftab PO Not Given BEDTIME [facility] Allergies Allergies Allergy/AdvReac Type Severity Reaction Status Date / Time No Known Allergies Allergy Verified 09/03/20 03:47 Assessment & Plan Assessment & Plan (1) Major depression with psychotic features: Status: Acute Code(s): F32.3 - Major depressive disorder, single episode, severe with psychotic features Assessment and Plan: Pt presents today in bed, awakens easily, alert, identifies feeling anxious about MRI. Anxiety decreases as he talks about multiple topics. Reports sleep and appetite are seeming OK to me . Denies SI plan or intent. No changes in regime today. Greater than 50% of the session was spent on counseling and/or coordination of care Reason for contiued inpatient stay Substantial Risk for: med/psych decompensation
[2020-09-19] MEDS: Acetaminophen 325 MG TABLET 650 MG PO (18:05)
[2020-09-19 18:35] VITALS: BP 117/81; PULSE 88; TEMP 37.2
[2020-09-19] MEDS: traZODone HCL 25 MG HALFTAB PO (20:40)
[2020-09-19] MEDS: risperiDONE 2 MG TABLET PO (20:40)
[2020-09-19] MEDS: Dorzolamide HCl 2 % Ophth Sol 10 ML DRPBTL 1 DROP EYE-RIGHT (22:10)
[2020-09-20] MEDS: hydrOXYzine HCL 25 MG TABLET PO (02:33)
[2020-09-20] MEDS: LORazepam 1 MG TABLET PO (02:33)
[2020-09-20 06:00] VITALS: BP 105/78; PULSE 116; RESP 20; TEMP 37; O2SAT 97
[2020-09-20] MEDS: risperiDONE 1 MG TABLET PO (09:10)
[2020-09-20] MEDS: LORazepam 1 MG TABLET 2 MG PO (09:10)
[2020-09-20] MEDS: Dorzolamide HCl 2 % Ophth Sol 10 ML DRPBTL 1 DROP EYE-RIGHT ×2 (11:44→14:36)
[2020-09-20] MEDS: Milk of Magnesia 30 ML ORAL.SUSP PO (14:31)
[2020-09-20 16:25] VITALS: BP 120/86; PULSE 118; TEMP 37.1
--- NOTE | 2020-09-20 21:24 | HO.PSYCHPN ---
Subjective Subjective Date of Service: 09/20/20 Reason For Visit: Depression with psychosis Subjective Notes: Conditional Voluntary Interim History: Pt with difficulty sleeping-lorazepam ~ 2am. Re-trial of MRI today. Required 2 mg lorazepam to complete the procedure. Pt awake, alert, confused. Interactive and more visable in milieu. Changes to 5 minute checks for closer obs due to lorazepam and increase in activity. Pt states procedure was really easy not like the other day. Medication Compliance: No (refusing eye meds- pt'srationale is confusing-as a result meds not changed.) Side effects from medications: Yes (lorazepam-confusion) Attending Groups: No Review of Systems Review of Systems Yes all other systems are reviewed and are negative (pt denies) Reports behavioral changes and Reports confusion Psychiatric: Reports abnormal sleep pattern, Reports anxiety, Reports behavioral changes, Reports confusion and Reports difficulty concentrating Mental Status Exam Mental Status Exam Patient Appearance: Appropriate Patient Orientation: Person, Place and Situation Level of Consciousness: Alert Patient Behavior: Talkative, Suspicious, Anxious, Fatigued, Distractible and Good Eye Contact Mood Description: Flat Affect Description: Flat Patient Cognition Impaired: Yes Ability to Follow Directions: Fair Speech Pattern: Difficulty Finding Words, Spontaneous Speech, Soft-Spoken and Long Pauses Memory Description: Remote Impaired, Immediate Impaired and [facility] Impaired Hallucinations: None Delusions: Paranoid Ideation Thought Process: Illogical Thought Content: positive for Poverty of Content and positive for [place] Depressive Symptoms: Increased Anxiety, Diff. Making Decisions, Difficulty Sleeping and Difficulty Concentrating Judgement: Poor Diagnostics Vital Signs (24Hr): Vital Signs - 24 hr 09/20/20 06:00 Temperature 98.6 F Pulse Rate 116 H Respiratory Rate 20 Blood Pressure 105/78 Pulse Oximetry 97 Body Mass Index 19.1 Labs Results: 09/03/20 04:25 09/14/20 14:07 Imaging Radiology Impressions: ITS Impressions Head CT 09/03/20 03:56 IMPRESSION: No evidence for acute intracranial injury. Automated exposure control (Care Dose) Adjustment of the mA and/or kv according to patient size (this includes techniques or standardized protocols for targeted exams where dose is matched to indication / reason for exam; i.e. extremities or head). Brain MRI 09/20/20 10:13 IMPRESSION: 1. No acute intracranial abnormalities. 2. Mild underlying microangiopathy and generalized cerebral volume loss. Medications Medications Current Medications Generic Name Dose Route Start Last Admin Trade Name Freq PRN Reason Stop Dose Admin Acetaminophen 650 mg 09/08/20 20:02 09/19/20 18:05 Acetaminophen 325 Mg Tablet PO 650 mg Q6H PRN Administration Headache/Pain Mild Scale (1-3) Al Hydroxide/Mg Hydroxide 30 ml 09/08/20 20:02 Magnesium Hydrox/Alum Hydrox 30 Ml Oral.Susp PO Q6H PRN Heartburn/Nausea Dorzolamide HCl 1 drop 09/11/20 15:00 09/20/20 21:24 Dorzolamide Hcl 2 % Ophth Catina 10 Ml Drpbtl EYE-RIGHT Not Given TID JOSE RAFAEL Hydroxyzine HCl 25 mg 09/08/20 20:02 09/20/20 02:33 Hydroxyzine Hcl 25 Mg Tablet PO 25 mg BEDTIME PRN Administration Anxiety Magnesium Hydroxide 30 ml 09/08/20 20:02 09/20/20 14:31 Milk Of Magnesia 30 Ml Oral.Susp PO 30 ml DAILY PRN Administration Constipation Patient Own 1 each 09/11/20 21:00 09/20/20 21:24 Medication (Combigan EYE-BOTH Not Given Eye Drops) BID [facility] Pharmacy Consult 1 each 09/03/20 09:51 Consult Rx Perform Med Rec MISCELLANE ONCE PRN Consult order Risperidone 1 mg 09/17/20 09:00 09/20/20 09:10 Risperidone 1 Mg Tablet PO 1 mg DAILY JOSE RAFAEL Administration Risperidone 2 mg 09/16/20 21:00 09/20/20 21:23 Risperidone 2 Mg Tablet PO Not Given BEDTIME [facility] Trazodone HCl 25 mg 09/16/20 21:00 09/20/20 21:24 Trazodone Hcl 25 Mg Halftab PO Not Given BEDTIME [facility] Allergies Allergies Allergy/AdvReac Type Severity Reaction Status Date / Time No Known Allergies Allergy Verified 09/03/20 03:47 Assessment & Plan Assessment & Plan (1) Major depression with psychotic features: Status: Acute Code(s): F32.3 - Major depressive disorder, single episode, severe with psychotic features Assessment and Plan: Awake during the night. Lorazepam for sleep and for MRI MRI completed. Visable in milieu-wandering, confused, calm. Five minute checks initiated. No regime changes. Await MRI results. Greater than 50% of the session was spent on counseling and/or coordination of care Reason for contiued inpatient stay Substantial Risk for: inability to function and med/psych decompensation
[2020-09-21] MEDS: hydrOXYzine HCL 25 MG TABLET PO (00:50)
[2020-09-21 06:00] VITALS: BP 121/60; PULSE 80; TEMP 37.1
[2020-09-21] MEDS: risperiDONE 1 MG TABLET PO (10:17)
--- NOTE | 2020-09-21 13:23 | P.PNPSI_ITS ---
Subjective Subjective Date of Service: 09/21/20 Reason For Visit: Depression with psychosis Subjective Notes: Conditional Voluntary Interim History: Patient seen in coverage case reviewed extensively with patient's daughter who denies clear recent neurological evaluation states father was reportedly totally functioning in a normal manner up until 6 weeks ago. Leeann smith with somewhat bland affect spending much of his time bed blunted does not seem to be aware that he is in hospital when interviewed did not seem overly distressed. 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 did not know his 's name but his ability to give information varies during the interview difficult time taking in information denies hallucinations admits to recent visual hallucinations of a man prior to admission but states perhaps it was his imagination denies current auditory hallucinations somewhat guarded slowed mentation Diagnostics Vital Signs (24Hr): Vital Signs - 24 hr 09/20/20 16:25 09/21/20 06:00 Temperature 98.7 F 98.8 F Pulse Rate 118 H 80 Blood Pressure 120/86 121/60 Body Mass Index 19.1 Labs Results: 09/03/20 04:25 09/14/20 14:07 Imaging Radiology Impressions: ITS Impressions Head CT 09/03/20 03:56 IMPRESSION: No evidence for acute intracranial injury. Automated exposure control (Care Dose) Adjustment of the mA and/or kv according to patient size (this includes techniques or standardized protocols for targeted exams where dose is matched to indication / reason for exam; i.e. extremities or head). Brain MRI 09/20/20 10:13 IMPRESSION: 1. No acute intracranial abnormalities. 2. Mild underlying microangiopathy and generalized cerebral volume loss. Medications Medications Current Medications Generic Name Dose Route Start Last Admin Trade Name Freq PRN Reason Stop Dose Admin Acetaminophen 650 mg 09/08/20 20:02 09/19/20 18:05 Acetaminophen 325 Mg Tablet PO 650 mg Q6H PRN Administration Headache/Pain Mild Scale (1-3) Al Hydroxide/Mg Hydroxide 30 ml 09/08/20 20:02 Magnesium Hydrox/Alum Hydrox 30 Ml Oral.Susp PO Q6H PRN Heartburn/Nausea Dorzolamide HCl 1 drop 09/11/20 15:00 09/21/20 10:17 Dorzolamide Hcl 2 % Ophth Catina 10 Ml Drpbtl EYE-RIGHT Not Given TID JOSE RAFAEL Hydroxyzine HCl 25 mg 09/08/20 20:02 09/21/20 00:50 Hydroxyzine Hcl 25 Mg Tablet PO 25 mg BEDTIME PRN Administration Anxiety Magnesium Hydroxide 30 ml 09/08/20 20:02 09/20/20 14:31 Milk Of Magnesia 30 Ml Oral.Susp PO 30 ml DAILY PRN Administration Constipation Patient Own 1 each 09/11/20 21:00 09/21/20 10:17 Medication (Combigan EYE-BOTH Not Given Eye Drops) BID [facility] Pharmacy Consult 1 each 09/03/20 09:51 Consult Rx Perform Med Rec MISCELLANE ONCE PRN Consult order Risperidone 1 mg 09/17/20 09:00 09/21/20 10:17 Risperidone 1 Mg Tablet PO 1 mg DAILY JOSE RAFAEL Administration Risperidone 2 mg 09/16/20 21:00 09/20/20 21:23 Risperidone 2 Mg Tablet PO Not Given BEDTIME JOSE RAFAEL Trazodone HCl 25 mg 09/16/20 21:00 09/20/20 21:24 Trazodone Hcl 25 Mg Halftab PO Not Given BEDTIME [facility] Allergies Allergies Allergy/AdvReac Type Severity Reaction Status Date / Time No Known Allergies Allergy Verified 09/03/20 03:47 Assessment & Plan Assessment & Plan (1) Major depression with psychotic features: Status: Acute Code(s): F32.3 - Major depressive disorder, single episode, severe with psychotic features Assessment and Plan: Continue present medication but Risperdal contraindicated if question of Lewy body patient with also relatively recent history of renal carcinoma paraneoplastic needs to be included in differential. Unclear if patient has pseudodementia of depression Patient with odd affect difficulty processing information does not seem just related to depression although patient has had a psychotic depression reportedly 20 years ago MRI shows volume loss was unable to get contrast check EEG neuro consult would consider LP given atypical presentation Greater than 50% of the session was spent on counseling and/or coordination of care Reason for contiued inpatient stay Substantial Risk for: inability to function, rapid decompensation and med/psych decompensation
[2020-09-21 18:00] VITALS: BP 134/82; PULSE 104; TEMP 36.7
[2020-09-21] MEDS: traZODone HCL 25 MG HALFTAB PO (21:36)
[2020-09-21] MEDS: risperiDONE 2 MG TABLET PO (21:36)
--- NOTE | 2020-09-22 | EEG_ITS ---
This is a 16-channel EEG with an EKG lead. The patient is reported awake during the tracing. Background EEG rhythm is 7 to 8 hertz, 5 to 50 microvolt posteriorly, a lower amplitude fast anteriorly. Photic stimulation does not produce any significant abnormality. Hyperventilation is not performed. Cardiac lead does not reveal any significant abnormality. No definite sharp wave spikes or paroxysmal tendencies noted. IMPRESSION: Mild generalized slowing with no evidence of seizure disorder. MD JUNITO Leger/SUE / [id number]
[2020-09-22 06:00] VITALS: BP 121/79; PULSE 116; RESP 20; TEMP 37.1; O2SAT 96
[2020-09-22] MEDS: risperiDONE 1 MG TABLET PO (08:38)
--- NOTE | 2020-09-22 11:57 | P.CNNE_ITS ---
History of Present Illness Data of Consult Service Date: 09/22/20 Primary Care Provider: Unknown Physician 70 years old man with history of probably an episode of psychotic depression about 20 years ago or psychosis for which she did not take medications and symptoms got resolved after few weeks. 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 He was noted to be stressed and depressed about that situation and his overall situation worsened. He started to lose weight and became more withdrawn and then started hallucinating and having delusional thinking. This was described in detail in psychiatric notes. When I talked to him, he said he was okay. He denied any headache or body pain. There was no witnessing of any convulsion. There was no evidence of any tick bite or rash. There was no history of any head trauma. Review of Systems Review of Systems: No recent cold or flu-like illness. [facility] Surgical History Surgical History History of kidney surgery Social History Social History Household Members: None Housing: Other Housing Other:: LIVES ALONE Do you presently have visiting nurse or other home services: No Smoking Status: Former smoker Smoked in Last 30 Days: No Second Hand Smoke Exposure: No Use of substances other than those prescribed or required for medical reasons: No Currently Displaying Signs/Symptoms of Drug Intoxication Withdrawal: No Have you been hit, kicked, punched, or otherwise hurt by someone within the past year? If so, by whom?: No Do you feel safe in your current relationship?: No Current Relationship Is there a partner from a previous relationship who is making you feel unsafe now?: No Are you made to feel afraid or neglected: No Advance Directives: No Advance Directives Information Provided: No Do you have thoughts of harming others: None Do you have a plan to hurt others: No Plan Recently lost weight without trying: No service: No Sexual orientation: Straight/Heterosexual Meds Allergies Allergy/AdvReac Type Severity Reaction Status Date / Time No Known Allergies Allergy Verified 09/03/20 03:47 Active Medications: Current Medications Generic Name Dose Route Start Last Admin Trade Name Freq PRN Reason Stop Dose Admin Acetaminophen 650 mg 09/08/20 20:02 09/19/20 18:05 Acetaminophen 325 Mg Tablet PO 650 mg Q6H PRN Administration Headache/Pain Mild Scale (1-3) Al Hydroxide/Mg Hydroxide 30 ml 09/08/20 20:02 Magnesium Hydrox/Alum Hydrox 30 Ml Oral.Susp PO Q6H PRN Heartburn/Nausea Dorzolamide HCl 1 drop 09/11/20 15:00 09/22/20 08:49 Dorzolamide Hcl 2 % Ophth Catina 10 Ml Drpbtl EYE-RIGHT Not Given TID JOSE RAFAEL Hydroxyzine HCl 25 mg 09/08/20 20:02 09/21/20 00:50 Hydroxyzine Hcl 25 Mg Tablet PO 25 mg BEDTIME PRN Administration Anxiety Magnesium Hydroxide 30 ml 09/08/20 20:02 09/20/20 14:31 Milk Of Magnesia 30 Ml Oral.Susp PO 30 ml DAILY PRN Administration Constipation Patient Own 1 each 09/11/20 21:00 09/22/20 08:49 Medication (Combigan EYE-BOTH Not Given Eye Drops) BID [facility] Pharmacy Consult 1 each 09/03/20 09:51 Consult Rx Perform Med Rec MISCELLANE ONCE PRN Consult order Risperidone 1 mg 09/17/20 09:00 09/22/20 08:38 Risperidone 1 Mg Tablet PO 1 mg DAILY JOSE RAFAEL Administration Risperidone 2 mg 09/16/20 21:00 09/21/20 21:36 Risperidone 2 Mg Tablet PO 2 mg BEDTIME JOSE RAFAEL Administration Trazodone HCl 25 mg 09/16/20 21:00 09/21/20 21:36 Trazodone Hcl 25 Mg Halftab PO 25 mg BEDTIME JOSE RAFAEL Administration Home Medications Medication Instructions Recorded Confirmed Last Taken Type aspirin-caffeine [Anacin] 1 tab PO Q6H PRN 09/03/20 09/03/20 Unknown History brimonidine-timolol [Combigan] 1 drp OPHTHALMIC (EYE) BID 09/03/20 09/03/20 Unknown History lorazepam 1 tab PO Q8H PRN 09/04/20 09/04/20 Unknown History Physical Exam Vital Signs: Vital Signs: Last Vital Signs Temp 98.7 F 09/22/20 06:00 Pulse 116 H 09/22/20 06:00 Resp 20 09/22/20 06:00 BP 121/79 09/22/20 06:00 Pulse Ox 96 09/22/20 06:00 Body Mass Index 19.1 He was alert and awake with normal spontaneity of speech fluency comprehension and depressed and flat affect. Face was symmetrical. Visual berman were full. There was no nystagmus. No dyskinesia or tremor was noted. Deep tendon reflexes were trace to absent with flexor plantars. He was able to get up and walk around without difficulty. Results Labs CBC & Chem 7: 09/03/20 04:25 09/14/20 14:07 Labs: His noncontrast head CT and MRI of brain were reviewed. Moderately severe diffuse cerebral atrophy was noted that was prominent for his age. Mild microvascular ischemic changes were noted. Laboratories did not reveal any significant pathology other than low platelet count. Assessment and Plan (1) Encephalopathy: Problem details: 70 years old man who likely had underlying tendency for psychiatric illness. He had 1st attack probably of psychosis couple of decades ago. More recently he had unusual depression type of reaction to the news given to him by his hospice nurse, resulting in weight loss and severe depression. After that he started having symptoms of psychosis. 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 Sometime significant alcohol exposure can also result in this type of brain pathology. I am not seeing any overt indication of infectious/inflammatory/paraneoplastic type of encephalopathy. There is no indication of epilepsy. Because of his relative short recent clinical course, workup with MRI and EEG was warranted to rule out any possibility of rapidly progressive dementia as including pre on disease but his brain MRI did not reveal any such findings. I believe treatment with antipsychotic medications, antidepressants and also with electroconvulsive therapy, if indicated, is reasonable. Finally, though history provided to us is that he was doing quite well until few weeks ago, significant atrophy on his brain scans suggested a mo re chronic picture. Status: Acute (2) Dementia: Status: Acute
[2020-09-22 16:32] VITALS: BP 118/81; PULSE 94; RESP 16; TEMP 36.7; O2SAT 97
[2020-09-22] MEDS: traZODone HCL 25 MG HALFTAB PO (20:56)
[2020-09-22] MEDS: risperiDONE 2 MG TABLET PO (20:56)
--- NOTE | 2020-09-22 22:36 | P.PNPSI_ITS ---
Subjective Subjective Date of Service: 09/23/20 Reason For Visit: Depression with psychosis Interim History: The patient is depressed withdrawn anxious needed much encouragement but did cooperate with EEG patient was seen by Neurology. He remains depressed withdrawn irritable Medication Compliance: Intermittent Mental Status Exam Mental Status Exam Patient Appearance: Appropriate Patient Orientation: Person Level of Consciousness: Lethargic Patient Behavior: Suspicious, Anxious, Fatigued, Distractible and Good Eye Contact Mood Description: Depressed and Flat Affect Description: Anxious, Flat and Apprehensive Patient Cognition Impaired: Yes Ability to Follow Directions: Fair Speech Pattern: Impoverished, Difficulty Finding Words, Spontaneous Speech, Soft-Spoken and Long Pauses Memory Description: Remote Impaired, Immediate Impaired and Clinical Specialist Vascular Impaired Hallucinations: Visual Delusions: Paranoid Ideation Thought Process: Illogical Thought Content: positive for Poverty of Content and positive for Tangential Depressive Symptoms: Increased Anxiety, Diff. Making Decisions, Difficulty Sleeping and Difficulty Concentrating Judgement: Poor Diagnostics Vital Signs (24Hr): Vital Signs - 24 hr 09/22/20 06:00 09/22/20 16:32 Temperature 98.7 F 98.1 F Pulse Rate 116 H 94 Respiratory Rate 20 16 Blood Pressure 121/79 118/81 Pulse Oximetry 96 97 Body Mass Index 19.1 Labs Results: 09/03/20 04:25 09/14/20 14:07 Imaging Radiology Impressions: ITS Impressions Head CT 09/03/20 03:56 IMPRESSION: No evidence for acute intracranial injury. Automated exposure control (Care Dose) Adjustment of the mA and/or kv according to patient size (this includes techniques or standardized protocols for targeted exams where dose is matched to indication / reason for exam; i.e. extremities or head). Brain MRI 09/20/20 10:13 IMPRESSION: 1. No acute intracranial abnormalities. 2. Mild underlying microangiopathy and generalized cerebral volume loss. Medications Medications Current Medications Generic Name Dose Route Start Last Admin Trade Name Freq PRN Reason Stop Dose Admin Acetaminophen 650 mg 09/08/20 20:02 09/19/20 18:05 Acetaminophen 325 Mg Tablet PO 650 mg Q6H PRN Administration Headache/Pain Mild Scale (1-3) Al Hydroxide/Mg Hydroxide 30 ml 09/08/20 20:02 Magnesium Hydrox/Alum Hydrox 30 Ml Oral.Susp PO Q6H PRN Heartburn/Nausea Dorzolamide HCl 1 drop 09/11/20 15:00 09/22/20 21:11 Dorzolamide Hcl 2 % Ophth Catina 10 Ml Drpbtl EYE-RIGHT Not Given TID JOSE RAFAEL Hydroxyzine HCl 25 mg 09/08/20 20:02 09/21/20 00:50 Hydroxyzine Hcl 25 Mg Tablet PO 25 mg BEDTIME PRN Administration Anxiety Magnesium Hydroxide 30 ml 09/08/20 20:02 09/20/20 14:31 Milk Of Magnesia 30 Ml Oral.Susp PO 30 ml DAILY PRN Administration Constipation Patient Own 1 each 09/11/20 21:00 09/22/20 21:11 Medication (Combigan EYE-BOTH Not Given Eye Drops) BID JOSE RAFAEL Pharmacy Consult 1 each 09/03/20 09:51 Consult Rx Perform Med Rec MISCELLANE ONCE PRN Consult order Risperidone 1 mg 09/17/20 09:00 09/22/20 08:38 Risperidone 1 Mg Tablet PO 1 mg DAILY JOES RAFAEL Administration Risperidone 2 mg 09/16/20 21:00 09/22/20 20:56 Risperidone 2 Mg Tablet PO 2 mg BEDTIME JOSE RAFAEL Administration Trazodone HCl 25 mg 09/16/20 21:00 09/22/20 20:56 Trazodone Hcl 25 Mg Halftab PO 25 mg BEDTIME JOSE RAFAEL Administration Allergies Allergies Allergy/AdvReac Type Severity Reaction Status Date / Time No Known Allergies Allergy Verified 09/03/20 03:47 Assessment & Plan Assessment & Plan (1) Encephalopathy: Status: Acute Code(s): G93.40 - Encephalopathy, unspecified (2) Dementia: Status: Acute Code(s): F03.90 - Unspecified dementia without behavioral disturbance Assessment and Plan: Case extensively reviewed with Neurology. Patient may have a combination of dementia with depression although cannot really explain reported acute presentation. He does have slowing eeg according to Neurology and MRI without contrast shows significant global atrophy. Patient continues to have word- finding problems at times more alert and able to comprehend that other times more variable at times seems to know he is in the hospital other times more confused. This does not seem like a typical presentation psychotic depression alone and this was reviewed with Dr. Leal. We discussed different options including lumbar puncture and whether to see if we can draw or any paraneoplastic markers will start Effexor 37.5 mg consider unilateral ECT will coordinate further with Neurology in need for further workup patient does have history of renal cancer Case reviewed with Neurology who recommends lumbar puncture we need to clarify Healthcare proxy Greater than 50% of the session was spent on counseling and/or coordination of care Reason for contiued inpatient stay Substantial Risk for: inability to function and rapid decompensation
[2020-09-23 06:00] VITALS: BP 132/75; RESP 20; TEMP 36.6; O2SAT 98
[2020-09-23 07:00] VITALS: BMI 19.1
[2020-09-23] MEDS: Venlafaxine HCl ER 37.5 MG CAP.ER.24H PO (08:36)
[2020-09-23] MEDS: risperiDONE 1 MG TABLET PO (08:36)
--- NOTE | 2020-09-23 15:58 | PC.NURSE ---
This radio script writer attempted to engage pt in MoCA, but pt refusing, stated he will only do that with his doctor. Will attempt again at a later time. Nurse aware.
[2020-09-23 18:55] VITALS: BP 128/80; PULSE 91; TEMP 37.1
[2020-09-23] MEDS: Dorzolamide HCl 2 % Ophth Sol 10 ML DRPBTL 1 DROP EYE-RIGHT (20:34)
[2020-09-23] MEDS: traZODone HCL 25 MG HALFTAB PO (20:34)
[2020-09-23] MEDS: risperiDONE 2 MG TABLET PO (20:34)
[2020-09-24 07:05] VITALS: BP 128/82; PULSE 89; RESP 16; TEMP 37.1; O2SAT 95
--- NOTE | 2020-09-24 08:32 | P.CNHO_ITS ---
Subjective - Subjective Chief complaint: Consult for question of paraneoplastic syndrome. Patient: new to practice Consult date: 09/24/20 Requesting Physician: Gianna. Primary Care Provider: Unknown Physician Medical Summary: DIAGNOSIS: Psychotic depression. Dementia. Question of paraneoplastic syndrome. HPI - Consult Narrative Reason for consult: CONSULT FOR QUESTION OF PARANEOPLASTIC SYNDROME. Narrative: Willian Fuentes is a pleasant 70 year old gentleman, who has been admitted with further management of depression. Per daughter, at baseline patient is quite independent, high functioning and social person. She reports that a little over a month ago patient was told that his eye sight was going to progressively get worse and there was no treatment for it and since then she noted that he became increasingly depressed--decreased motivation, decreased self worth, decreased appetite, increasing sadness and increasing isolation. She notes that about a week or so ago he began to make statements about people watching him, fearing little people were in his home with cameras taking pictures of him. 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 Daughter states patient has never been psychiatrically admitted, but her mother reported to her that about 20 years ago patient had a very similar presentation which mother reported as a nervous breakdown and patient stayed at his [facility] home for about 2 months until sx subsided. Mother reported that patient was prescribed medications during this time, but he did not take them. Patient denies any knowledge of geovanna or hypomania episodes. She states patient does not like to take medications and is usually somewhat skeptical of medical providers. Daughter notes that patient has lost about 15 lbs in the last month. During time in the ED patient has been requiring redirection due to wandering behaviors, He required IM lorazepam due to increasing agitation and attempting to hit staff. Per patient observer, patient has not been sleeping well. MRI of the brain from 09/20: 1. No acute intracranial abnormalities. 2. Mild underlying microangiopathy and generalized cerebral volume loss. PAST MEDICAL HISTORY: 1. RENAL CELL CARCINOMA: He underwent left nephrectomy on 07/16/2019, by Dr.Alekander Roberto at [facility]. Pathology revealed: Renal cell carcinoma, clear cell type. Histologic grade: G3. Tumor size: 4.5 x 4 x 3.5 cm. Tumor focality: Unifocal. Tumor extension: Tumor limited to kidney. Tumor necrosis: Present. Margins: Uninvolved by carcinoma. Lymph nodes: No lymph nodes submitted. Pathologic stage: Primary tumor: pT1b. Ureter: Negative for tumor. 2. He underwent an upper endoscopy and colonoscopy in 02/26/1992, by Dr. Bruce Plummer. This was done for weight loss and belly pain. Pathology revealed: Terminal ileum: Slight edema, hyperemia and focal crush artifact. No villous atrophy. Duodenum: Nonspecific chronic inflammation, hyperemia and small number of eosinophils. No villous atrophy. Antral biopsy: Slight edema and hyperemia. Benign. H pylori negative. Review of Systems - Constitutional Reports system reviewed and no additional complaints, except as documented, R eports fatigue, Reports lack of energy, Reports poor appetite, Reports weight loss - Eyes Reports system reviewed and no additional complaints, except as documented - ENT Reports system reviewed and no additional complaints, except as documented - Cardiovascular Reports system reviewed and no additional complaints, except as documented - Respiratory Reports no additional respiratory complaints - Gastrointestinal Reports system reviewed and no additional complaints, except as documented - Genitourinary Genitourinary: Reports no additional male genitourinary complaints - Musculoskeletal Reports system reviewed and no additional complaints, except as documented - Integumentary/Breasts Skin/Breast: Reports no additional skin complaints - Neurologic Reports behavioral changes, Reports confusion, Reports weakness - Psychiatric Reports system reviewed and no additional complaints, except as documented - Endocrine Reports no additional endocrine complaints - Hematologic/Lymphatic Reports system reviewed and no additional complaints, except as documented - Allergic/Immunologic Reports system reviewed and no additional complaints, except as documented Oncology Screenings - ECOG Performance Status ECOG Performance Status: 0 [facility] Medical History: Medical History (Last Updated 09/24/20 @ 21:30 by Ken Katz MD) Renal cell carcinoma Surgical History: Surgical History (Last Reviewed 09/03/20 @ 05:48 by Truman Sanches MD) History of kidney surgery Social History: Social History (Last Reviewed 09/03/20 @ 05:48 by Truman Sanches MD) Living Situation History: Household Members: None Housing: Other Housing Other:: LIVES ALONE Do you presently have visiting nurse or other home services: No Tobacco History: Smoking Status: Former smoker Smoked in Last 30 Days: No Second Hand Smoke Exposure: No Substance Use History: Use of substances other than those prescribed or required for medical reasons : No Currently Displaying Signs/Symptoms of Drug Intoxication Withdrawal: No Domestic Abuse History: Have you been hit, kicked, punched, or otherwise hurt by someone within the past year? If so, by whom?: No Do you feel safe in your current relationship?: No Current Relationship Is there a partner from a previous relationship who is making you feel unsafe now?: No Are you made to feel afraid or neglected: No Advance Directives: Advance Directives: No Advance Directives Information Provided: No Homicidal Assessment: Do you have thoughts of harming others: None Do you have a plan to hurt others: No Plan Do you have a plan to hurt others: Clear Nutrition Assessment: Recently lost weight without trying: No How much weight loss: Unsure Eating poorly because of decreased appetite: No Nutrition screen score: 2 Nutrition Risks: No Nutritional Risk Poor oral hygiene: No Occupation Assessmet: service: No Current occupational exposures/hazards: No Sex/Gender Assessment: Sexual orientation: Straight/Heterosexual Smoking status: Former smoker Current occupational exposures/hazards: No Home Medications and Allergies Current Medications: Current Medications Generic Name Dose Route Start Last Admin Trade Name Freq PRN Reason Stop Dose Admin Acetaminophen 650 mg 09/08/20 20:02 09/19/20 18:05 Acetaminophen 325 Mg Tablet PO 650 mg Q6H PRN Administration Headache/Pain Mild Scale (1-3) Al Hydroxide/Mg Hydroxide 30 ml 09/08/20 20:02 Magnesium Hydrox/Alum Hydrox 30 Ml Oral.Susp PO Q6H PRN Heartburn/Nausea Dorzolamide HCl 1 drop 09/11/20 15:00 09/23/20 20:34 Dorzolamide Hcl 2 % Ophth Catina 10 Ml Drpbtl EYE-RIGHT 1 drop TID JOSE RAFAEL Administration Hydroxyzine HCl 25 mg 09/08/20 20:02 09/21/20 00:50 Hydroxyzine Hcl 25 Mg Tablet PO 25 mg BEDTIME PRN Administration Anxiety Magnesium Hydroxide 30 ml 09/08/20 20:02 09/20/20 14:31 Milk Of Magnesia 30 Ml Oral.Susp PO 30 ml DAILY PRN Administration Constipation Patient Own 1 each 09/11/20 21:00 09/23/20 20:35 Medication (Combigan EYE-BOTH Not Given Eye Drops) BID [facility] Pharmacy Consult 1 each 09/03/20 09:51 Consult Rx Perform Med Rec MISCELLANE ONCE PRN Consult order Risperidone 1 mg 09/17/20 09:00 09/23/20 08:36 Risperidone 1 Mg Tablet PO 1 mg DAILY JOSE RAFAEL Administration Risperidone 2 mg 09/16/20 21:00 09/23/20 20:34 Risperidone 2 Mg Tablet PO 2 mg BEDTIME JOSE RAFAEL Administration Trazodone HCl 25 mg 09/16/20 21:00 09/23/20 20:34 Trazodone Hcl 25 Mg Halftab PO 25 mg BEDTIME JOSE RAFAEL Administration Venlafaxine HCl 37.5 mg 09/23/20 09:00 09/23/20 08:36 Venlafaxine Hcl Er 37.5 Mg Cap.Er.24h PO 37.5 mg DAILY JOSE RAFAEL Administration Home Medications Medication Instructions Recorded Confirmed Type aspirin-caffeine [Anacin] 1 tab PO Q6H PRN 09/03/20 09/03/20 History brimonidine-timolol [Combigan] 1 drp OPHTHALMIC (EYE) BID 09/03/20 09/03/20 History lorazepam 1 tab PO Q8H PRN 09/04/20 09/04/20 History Allergies Allergy/AdvReac Type Severity Reaction Status Date / Time No Known Allergies Allergy Verified 09/03/20 03:47 Physical Exam Vital signs: Vital Signs Temp 98.7 F 09/24/20 07:05 Pulse 89 09/24/20 07:05 Resp 16 09/24/20 07:05 BP 128/82 09/24/20 07:05 Pulse Ox 95 09/24/20 07:05 Intake & Output 09/23/20 09/24/20 09/24/20 18:59 06:59 18:59 Other: Weight 57 kg [place] Weight in Grams 84100 Weight 57 kg - Constitutional Present: moderate distress - Routine HEENT Exam Head: Present: normal inspection ENT: Present: mucous membranes moist - Routine Neck Exam Present: supple - Routine Respiratory Exam Present: CTAB - Routine Cardiovascular Exam Cardiovascular: Present: RRR, S1, S2 - Routine Abdominal Exam Present: soft, nontender - Routine Rectal Exam Patient deferred: digital exam - Routine Extremities Exam Present: nontender - Routine Skin Exam Present: intact - Routine Neurological Exam Present: alert, oriented X3 - Detailed Neurological Exam: Coma Scale Eye Opening: Spontaneous (4) Verbal Response: Oriented (5) Motor Response: Obeys commands (6) Mir Coma Scale Total: 15 - Routine Psychiatric Exam Present: agitated, depressed, visual hallucinations Hem/Onc Consult Result - Labs CBC & Chem 7: 09/03/20 04:25 09/14/20 14:07 Assessment and Plan (1) Paraneoplastic syndrome Status: Acute This is a pleasant 70-year-old gentleman who has been admitted with symptoms of psychotic depression, and early-onset dementia. Concern is if there is any underlying malignancy that is triggering. MRI of the brain from 09/20: 1. No acute intracranial abnormalities. 2. Mild underlying microangiopathy and generalized cerebral volume loss. He had left nephrectomy for a clear cell, renal cell cancer on 07/16/2019 at [facility]. He was supposed to go back for follow-up but he did not keep the follow-up appointment. I would recommend imaging for restaging, look for any evidence of disease recurrence. MRI has a potential advantage over conventional CT because it sensitivity to detect small amount of gadolinium is higher. PLAN: I have requested records from his kidney doctors. I found out from the [facility] MRI that he had it with and without gadolinium. Will check MRI here for restaging. If there is evidence of disease recurrence will look for paraneoplastic syndrome. Thank you for this consult, Will follow, CC: Dr. Katz. Dr. Travis Roberto.
[2020-09-24] MEDS: Venlafaxine HCl ER 37.5 MG CAP.ER.24H PO (08:37)
[2020-09-24] MEDS: risperiDONE 1 MG TABLET PO (08:37)
[2020-09-24 17:12] VITALS: BP 126/86; PULSE 100; TEMP 37
[2020-09-24] MEDS: risperiDONE 2 MG TABLET PO (20:07)
[2020-09-24] MEDS: traZODone HCL 25 MG HALFTAB PO (20:07)
[2020-09-24] MEDS: Dorzolamide HCl 2 % Ophth Sol 10 ML DRPBTL 1 DROP EYE-RIGHT (20:08)
--- NOTE | 2020-09-24 21:22 | P.PNPSI_ITS ---
Subjective Subjective Date of Service: 09/24/20 Reason For Visit: Depression with psychosis Subjective Notes: Conditional Voluntary Interim History: Patient was able to take in information by Neurology and Oncology. Patient more alert knows he is in hospital knows the president knows the month. His mood is superficially pleasant he is more alert he was able to s becker if anyone needed help make medical decisions if he were not having capacity he would choose his daughter. Remains withdrawn anxious isolated variable attention and becomes easily distracted and derailed from conversation Medication Compliance: Intermittent Mental Status Exam Mental Status Exam Patient Appearance: Appropriate Patient Orientation: Person and Place Level of Consciousness: Awake and Lethargic Patient Behavior: Appropriate, Suspicious, Anxious, Fatigued, Distractible and Good Eye Contact Mood Description: Anxious, Nervous and Apprehensive Affect Description: Anxious, Flat and Apprehensive Patient Cognition Impaired: Yes Ability to Follow Directions: Fair Speech Pattern: Impoverished, Difficulty Finding Words, Spontaneous Speech, Soft-Spoken and Long Pauses Memory Description: Remote Impaired, Immediate Impaired and Senior Care Impaired Thought Process: Distracted, Rumination and Confusion Thought Content: positive for Poverty of Content, positive for Tangential, positive for Hypochondriasis, negative for Suicidal Ideation and negative for Homicidal Ideation Depressive Symptoms: Increased Anxiety, Diff. Making Decisions, Difficulty Sleeping and Difficulty Concentrating Judgement: Poor Diagnostics Vital Signs (24Hr): Vital Signs - 24 hr 09/24/20 07:05 09/24/20 17:12 Temperature 98.7 F 98.6 F Pulse Rate 89 100 Respiratory Rate 16 Blood Pressure 128/82 126/86 Pulse Oximetry 95 Body Mass Index 19.1 Labs Results: 09/03/20 04:25 09/14/20 14:07 Imaging Radiology Impressions: ITS Impressions Head CT 09/03/20 03:56 IMPRESSION: No evidence for acute intracranial injury. Automated exposure control (Care Dose) Adjustment of the mA and/or kv according to patient size (this includes techniques or standardized protocols for targeted exams where dose is matched to indication / reason for exam; i.e. extremities or head). Brain MRI 09/20/20 10:13 IMPRESSION: 1. No acute intracranial abnormalities. 2. Mild underlying microangiopathy and generalized cerebral volume loss. Medications Medications Current Medications Generic Name Dose Route Start Last Admin Trade Name Freq PRN Reason Stop Dose Admin Acetaminophen 650 mg 09/08/20 20:02 09/19/20 18:05 Acetaminophen 325 Mg Tablet PO 650 mg Q6H PRN Administration Headache/Pain Mild Scale (1-3) Al Hydroxide/Mg Hydroxide 30 ml 09/08/20 20:02 Magnesium Hydrox/Alum Hydrox 30 Ml Oral.Susp PO Q6H PRN Heartburn/Nausea Dorzolamide HCl 1 drop 09/11/20 15:00 09/24/20 20:08 Dorzolamide Hcl 2 % Ophth Catina 10 Ml Drpbtl EYE-RIGHT 1 drop TID JOSE RAFAEL Administration Hydroxyzine HCl 25 mg 09/08/20 20:02 09/21/20 00:50 Hydroxyzine Hcl 25 Mg Tablet PO 25 mg BEDTIME PRN Administration Anxiety Magnesium Hydroxide 30 ml 09/08/20 20:02 09/20/20 14:31 Milk Of Magnesia 30 Ml Oral.Susp PO 30 ml DAILY PRN Administration Constipation Patient Own 1 each 09/11/20 21:00 09/24/20 21:06 Medication (Combigan EYE-BOTH Not Given Eye Drops) BID [facility] Pharmacy Consult 1 each 09/03/20 09:51 Consult Rx Perform Med Rec MISCELLANE ONCE PRN Consult order Risperidone 1 mg 09/17/20 09:00 09/24/20 08:37 Risperidone 1 Mg Tablet PO 1 mg DAILY JOSE RAFAEL Administration Risperidone 2 mg 09/16/20 21:00 09/24/20 20:07 Risperidone 2 Mg Tablet PO 2 mg BEDTIME JOSE RAFAEL Administration Trazodone HCl 25 mg 09/16/20 21:00 09/24/20 20:07 Trazodone Hcl 25 Mg Halftab PO 25 mg BEDTIME JOSE RAFAEL Administration Venlafaxine HCl 37.5 mg 09/23/20 09:00 09/24/20 08:37 Venlafaxine Hcl Er 37.5 Mg Cap.Er.24h PO 37.5 mg DAILY JOSE RAFAEL Administration Allergies Allergies Allergy/AdvReac Type Severity Reaction Status Date / Time No Known Allergies Allergy Verified 09/03/20 03:47 Assessment & Plan Assessment & Plan (1) Encephalopathy: Status: Acute Code(s): G93.40 - Encephalopathy, unspecified (2) Major depression with psychotic features: Status: Acute Code(s): F32.3 - Major depressive disorder, single episode, severe with psychotic features Assessment and Plan: Patient with poor working attention concentration difficulty taking in information. Patient appears to understand that he is having difficulty with mental functioning reviewed recommendation of lumbar puncture with analysis by Neurology patient had difficulty wearing the information. He also was agreeable to being seen by Oncology Dr. Ingram recommended potential staging of renal ca rcinoma with MRI with and without contrast. The patient may have been allergic to CT with contrast he states his 27 but has had reportedly MRI with gadolinium. The patient has not had medical follow-up since September of 2019. He does not have a current Healthcare proxy but again was able to state if he was and in able to make decisions for himself who he would trust his daughter to do that for him. Encourage MRI for staging clarify with Dr. Ingram her recommendation for workup. Patient does describe in a disorganized poorly informational way a history of somatic anxiety and periodic confusional states. EEG showed slowing. Some improvement noted with Effexor 37.5 mg continue Risperdal Greater than 50% of the session was spent on counseling and/or coordination of c are Reason for contiued inpatient stay Substantial Risk for: inability to function and med/psych decompensation
[2020-09-25 06:40] VITALS: BP 134/90; PULSE 95; TEMP 37.1
[2020-09-25] MEDS: Venlafaxine HCl ER 37.5 MG CAP.ER.24H PO (08:45)
[2020-09-25] MEDS: risperiDONE 1 MG TABLET PO (08:45)
--- NOTE | 2020-09-25 12:42 | HO.PSYCHPN ---
Subjective Subjective Date of Service: 09/25/20 Reason For Visit: Depression with psychosis Subjective Notes: Conditional Voluntary Interim History: Willian was quiet, and spending much of his time pacing the hallways. His hygiene is somewhat improved. He remains with some paranoia and is quite guarded in his presentation. Medication Compliance: Yes Side effects from medications: No Attending Groups: No Review of Systems Acute medical concerns: No Medical Review of Systems: unchanged Mental Status Exam Mental Status Exam Patient Appearance: Appropriate Patient Orientation: Person and Place Level of Consciousness: Awake and Lethargic Patient Behavior: Appropriate, Suspicious, Anxious, Fatigued, Distractible and Good Eye Contact Mood Description: Anxious, Nervous and Apprehensive Affect Description: Anxious, Flat and Apprehensive Patient Cognition Impaired: Yes Ability to Follow Directions: Fair Speech Pattern: Impoverished, Difficulty Finding Words, Spontaneous Speech, Soft-Spoken and Long Pauses Memory Description: Remote Impaired, Immediate Impaired and [employer] Developer Impaired Delusions: Paranoid Ideation Thought Process: Distracted, Rumination and Confusion Thought Content: positive for Poverty of Content, positive for Tangential, positive for Hypochondriasis, negative for Suicidal Ideation and negative for Homicidal Ideation Depressive Symptoms: Increased Anxiety, Diff. Making Decisions, Difficulty Sleeping and Difficulty Concentrating Judgement: Poor Diagnostics Vital Signs (24Hr): Vital Signs - 24 hr 09/24/20 17:12 09/25/20 06:40 Temperature 98.6 F 98.8 F Pulse Rate 100 95 Blood Pressure 126/86 134/90 H Body Mass Index 19.1 Labs Results: 09/03/20 04:25 09/14/20 14:07 Imaging Radiology Impressions: ITS Impressions Head CT 09/03/20 03:56 IMPRESSION: No evidence for acute intracranial injury. Automated exposure control (Care Dose) Adjustment of the mA and/or kv according to patient size (this includes techniques or standardized protocols for targeted exams where dose is matched to indication / reason for exam; i.e. extremities or head). Brain MRI 09/20/20 10:13 IMPRESSION: 1. No acute intracranial abnormalities. 2. Mild underlying microangiopathy and generalized cerebral volume loss. Medications Medications Current Medications Generic Name Dose Route Start Last Admin Trade Name Freq PRN Reason Stop Dose Admin Acetaminophen 650 mg 09/08/20 20:02 09/19/20 18:05 Acetaminophen 325 Mg Tablet PO 650 mg Q6H PRN Administration Headache/Pain Mild Scale (1-3) Al Hydroxide/Mg Hydroxide 30 ml 09/08/20 20:02 Magnesium Hydrox/Alum Hydrox 30 Ml Oral.Susp PO Q6H PRN Heartburn/Nausea Dorzolamide HCl 1 drop 09/11/20 15:00 09/25/20 10:36 Dorzolamide Hcl 2 % Ophth Catina 10 Ml Drpbtl EYE-RIGHT Not Given TID JOSE RAFAEL Hydroxyzine HCl 25 mg 09/08/20 20:02 09/21/20 00:50 Hydroxyzine Hcl 25 Mg Tablet PO 25 mg BEDTIME PRN Administration Anxiety Magnesium Hydroxide 30 ml 09/08/20 20:02 09/20/20 14:31 Milk Of Magnesia 30 Ml Oral.Susp PO 30 ml DAILY PRN Administration Constipation Patient Own 1 each 09/11/20 21:00 09/25/20 10:37 Medication (Combigan EYE-BOTH Not Given Eye Drops) BID [facility] Pharmacy Consult 1 each 09/03/20 09:51 Consult Rx Perform Med Rec MISCELLANE ONCE PRN Consult order Risperidone 1 mg 09/17/20 09:00 09/25/20 08:45 Risperidone 1 Mg Tablet PO 1 mg DAILY JOSE RAFAEL Administration Risperidone 2 mg 09/16/20 21:00 09/24/20 20:07 Risperidone 2 Mg Tablet PO 2 mg BEDTIME JOSE RAFAEL Administration Trazodone HCl 25 mg 09/16/20 21:00 09/24/20 20:07 Trazodone Hcl 25 Mg Halftab PO 25 mg BEDTIME JOSE RAFAEL Administration Venlafaxine HCl 37.5 mg 09/23/20 09:00 09/25/20 08:45 Venlafaxine Hcl Er 37.5 Mg Cap.Er.24h PO 37.5 mg DAILY JOSE RAFAEL Administration Allergies Allergies Allergy/AdvReac Type Severity Reaction Status Date / Time No Known Allergies Allergy Verified 09/03/20 03:47 Assessment & Plan Assessment & Plan (1) Encephalopathy: Status: Acute Code(s): G93.40 - Encephalopathy, unspecified (2) Major depression with psychotic features: Status: Acute Code(s): F32.3 - Major depressive disorder, single episode, severe with psychotic features Assessment and Plan: Patient with poor working attention concentration difficulty taking in information. Patient appears to understand that he is having difficulty with mental functioning reviewed recommendation of lumbar puncture with analysis by Neurology patient had difficulty wearing the information. He also was agreeable to being seen by Oncology Dr. Ingram recommended potential staging of renal carcinoma with MRI with and without contrast. The patient may have been allergic to CT with contrast he states his 27 but has had reportedly MRI with gadolinium. The patient has not had medical follow-up since September of 2019. He does not have a current Healthcare proxy but again was able to state if he was and in able to make decisions for himself who he would trust his daughter to do that for him. Encourage MRI for staging clarify with Dr. Ingram her recommendation for workup. Patient does describe in a disorganized poorly informational way a history of somatic anxiety and periodic confusional states. EEG showed slowing. Some improvement noted with Effexor 37.5 mg continue Risperdal No change to current treatment plan Greater than 50% of the session was spent on counseling and/or coordination of care Patient educated on: diagnosis and medication risk/benefits Informed Consent: further education needed Reason for contiued inpatient stay Substantial Risk for: inability to function and rapid decompensation
[2020-09-25] MEDS: Dorzolamide HCl 2 % Ophth Sol 10 ML DRPBTL 1 DROP EYE-RIGHT ×2 (16:01→21:33)
[2020-09-25] MEDS: Magnesium Hydrox/Alum Hydrox 30 ML ORAL.SUSP PO (16:02)
[2020-09-25 17:05] VITALS: BP 123/93; PULSE 91; RESP 16; TEMP 36.8; O2SAT 95
[2020-09-25] MEDS: risperiDONE 2 MG TABLET PO (21:26)
[2020-09-25] MEDS: traZODone HCL 25 MG HALFTAB PO (21:26)
[2020-09-26 06:00] VITALS: BP 121/81; PULSE 91; RESP 18; TEMP 36.4
[2020-09-26] MEDS: Venlafaxine HCl ER 37.5 MG CAP.ER.24H PO (08:26)
[2020-09-26] MEDS: risperiDONE 1 MG TABLET PO (08:26)
[2020-09-26] MEDS: Dorzolamide HCl 2 % Ophth Sol 10 ML DRPBTL 1 DROP EYE-RIGHT (14:14)
--- NOTE | 2020-09-26 16:36 | P.PNPSI_ITS ---
Subjective Subjective Date of Service: 09/26/20 Reason For Visit: Depression with psychosis Subjective Notes: Conditional Voluntary Interim History: Willian was somewhat suspicious and spent much of his time in his room. He had no complaints. Medication Compliance: Yes Side effects from medications: No Attending Groups: No Review of Systems Acute medical concerns: No Medical Review of Systems: unchanged Mental Status Exam Mental Status Exam Patient Appearance: Appropriate Patient Orientation: Person and Place Level of Consciousness: Awake and Lethargic Patient Behavior: Appropriate, Suspicious, Anxious, Fatigued, Distractible and Good Eye Contact Mood Description: Anxious, Nervous and Apprehensive Affect Description: Anxious, Flat and Apprehensive Patient Cognition Impaired: Yes Ability to Follow Directions: Fair Speech Pattern: Impoverished, Difficulty Finding Words, Spontaneous Speech, Soft-Spoken and Long Pauses Memory Description: Remote Impaired, Immediate Impaired and Fpc Impaired Delusions: Paranoid Ideation Thought Process: Distracted, Rumination and Confusion Thought Content: positive for Poverty of Content, positive for Tangential, positive for Hypochondriasis, negative for Suicidal Ideation and negative for Homicidal Ideation Depressive Symptoms: Increased Anxiety, Diff. Making Decisions, Difficulty Sleeping and Difficulty Concentrating Judgement: Poor Diagnostics Vital Signs (24Hr): Vital Signs - 24 hr 09/25/20 17:05 09/26/20 06:00 Temperature 98.3 F 97.6 F Pulse Rate 91 91 Respiratory Rate 16 18 Blood Pressure 123/93 H 121/81 Pulse Oximetry 95 Body Mass Index 19.1 Labs Results: 09/03/20 04:25 09/14/20 14:07 Imaging Radiology Impressions: ITS Impressions Head CT 09/03/20 03:56 IMPRESSION: No evidence for acute intracranial injury. Automated exposure control (Care Dose) Adjustment of the mA and/or kv according to patient size (this includes techniques or standardized protocols for targeted exams where dose is matched to indication / reason for exam; i.e. extremities or head). Brain MRI 09/20/20 10:13 IMPRESSION: 1. No acute intracranial abnormalities. 2. Mild underlying microangiopathy and generalized cerebral volume loss. Medications Medications Current Medications Generic Name Dose Route Start Last Admin Trade Name Freq PRN Reason Stop Dose Admin Acetaminophen 650 mg 09/08/20 20:02 09/19/20 18:05 Acetaminophen 325 Mg Tablet PO 650 mg Q6H PRN Administration Headache/Pain Mild Scale (1-3) Al Hydroxide/Mg Hydroxide 30 ml 09/08/20 20:02 09/25/20 16:02 Magnesium Hydrox/Alum Hydrox 30 Ml Oral.Susp PO 30 ml Q6H PRN Administration Heartburn/Nausea Dorzolamide HCl 1 drop 09/11/20 15:00 09/26/20 14:14 Dorzolamide Hcl 2 % Ophth Catina 10 Ml Drpbtl EYE-RIGHT 1 drop TID JOSE RAFAEL Administration Hydroxyzine HCl 25 mg 09/08/20 20:02 09/21/20 00:50 Hydroxyzine Hcl 25 Mg Tablet PO 25 mg BEDTIME PRN Administration Anxiety Magnesium Hydroxide 30 ml 09/08/20 20:02 09/20/20 14:31 Milk Of Magnesia 30 Ml Oral.Susp PO 30 ml DAILY PRN Administration Constipation Patient Own 1 each 09/11/20 21:00 09/26/20 08:30 Medication (Combigan EYE-BOTH Not Given Eye Drops) BID [facility] Pharmacy Consult 1 each 09/03/20 09:51 Consult Rx Perform Med Rec MISCELLANE ONCE PRN Consult order Risperidone 1 mg 09/17/20 09:00 09/26/20 08:26 Risperidone 1 Mg Tablet PO 1 mg DAILY JOSE RAFAEL Administration Risperidone 2 mg 09/16/20 21:00 09/25/20 21:26 Risperidone 2 Mg Tablet PO 2 mg BEDTIME JOSE RAFAEL Administration Trazodone HCl 25 mg 09/16/20 21:00 09/25/20 21:26 Trazodone Hcl 25 Mg Halftab PO 25 mg BEDTIME JOSE RAFAEL Administration Venlafaxine HCl 37.5 mg 09/23/20 09:00 09/26/20 08:26 Venlafaxine Hcl Er 37.5 Mg Cap.Er.24h PO 37.5 mg DAILY JOSE RAFAEL Administration Allergies Allergies Allergy/AdvReac Type Severity Reaction Status Date / Time No Known Allergies Allergy Verified 09/03/20 03:47 Assessment & Plan Assessment & Plan (1) Paraneoplastic syndrome: Status: Acute Assessment and Plan: Patient with poor working attention concentration difficulty taking in information. Patient appears to understand that he is having difficulty with mental functioning reviewed recommendation of lumbar puncture with analysis by Neurology patient had difficulty wearing the information. He also was agreeable to being seen by Oncology Dr. Ingram recommended potential staging of renal carcinoma with MRI with and without contrast. The patient may have been allergic to CT with contrast he states his 27 but has had reportedly MRI with gadolinium. The patient has not had medical follow-up since September of 2019. He does not have a current Healthcare proxy but again was able to state if he was and in able to make decisions for himself who he would trust his daughter to do that for him. Encourage MRI for staging clarify with Dr. Ingram her recommendation for workup. Patient does describe in a disorganized poorly informational way a history of somatic anxiety and periodic confusional states. EEG showed slowing. Some improvement noted with Effexor 37.5 mg continue Risperdal No change to current treatment plan (2) Major depression with psychotic features: Status: Acute Code(s): F32.3 - Major depressive disorder, single episode, severe with psychotic features Greater than 50% of the session was spent on counseling and/or coordination of care Patient educated on: diagnosis and medication risk/benefits Informed Consent: further education needed Reason for contiued inpatient stay Substantial Risk for: inability to function and rapid decompensation
[2020-09-26 17:29] VITALS: BP 122/85; PULSE 93; RESP 16; TEMP 36.9; O2SAT 95
[2020-09-26] MEDS: risperiDONE 2 MG TABLET PO (20:33)
[2020-09-27 06:05] VITALS: BP 120/82; PULSE 94; RESP 16; TEMP 36.9; O2SAT 95
[2020-09-27] MEDS: risperiDONE 1 MG TABLET PO (08:35)
[2020-09-27] MEDS: Venlafaxine HCl ER 37.5 MG CAP.ER.24H PO (08:35)
[2020-09-27] MEDS: Milk of Magnesia 30 ML ORAL.SUSP PO (13:09)
--- NOTE | 2020-09-27 14:35 | P.PNPSI_ITS ---
Subjective Subjective Date of Service: 09/27/20 Reason For Visit: Depression with psychosis Subjective Notes: Conditional Voluntary Interim History: Pt well groomed, talking with roommate but does not attend assigned groups. Pt reports he is not as worried about people breaking in his house. He now denies concerns about his room in the hospital being bugged. He continues to present with memory/cognitive impairments in attention, executive function and overall rational for additional medical tests/imaging. He describes mood as good. His affect appears slightly brighter, non labile. He denies SI/HI. Despite his own concerns with memory/cog, pt declines assistance at home. 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 Medication Compliance: Yes Side effects from medications: No Attending Groups: No Review of Systems Gastrointestinal: Reports constipation Mental Status Exam Mental Status Exam Narrative: Appearance: thin, casually groomed, improved hygiene, in NAD Behavior: somewhat guarded, irritable at times Psychomotor: no retardation or agitation noted Speech: clear, slowed rate/rhythm/volume, spontaneous TP: more linear TC: anxious about his health, confused about why he is in hospital or plan Mood: better Affect:slightly brighter SI:denies HI:denies AH/VH:denies Delusions:less paranoid delusions Insight/judgment:impaired x 2 Memory/cog: alert, significant impairment in different aspects based on MOCA 9/30 most difficulty with visuo spatial, attention, recall, language fluency. will redo as pt less paranoid/anxious Diagnostics Vital Signs (24Hr): Vital Signs - 24 hr 09/26/20 17:29 09/27/20 06:05 Temperature 98.4 F 98.4 F Pulse Rate 93 94 Respiratory Rate 16 16 Blood Pressure 122/85 120/82 Pulse Oximetry 95 95 Body Mass Index 19.1 Labs Results: 09/03/20 04:25 09/14/20 14:07 Imaging Radiology Impressions: ITS Impressions Head CT 09/03/20 03:56 IMPRESSION: No evidence for acute intracranial injury. Automated exposure control (Care Dose) Adjustment of the mA and/or kv according to patient size (this includes techniques or standardized protocols for targeted exams where dose is matched to indication / reason for exam; i.e. extremities or head). Brain MRI 09/20/20 10:13 IMPRESSION: 1. No acute intracranial abnormalities. 2. Mild underlying microangiopathy and generalized cerebral volume loss. Medications Medications Current Medications Generic Name Dose Route Start Last Admin Trade Name Freq PRN Reason Stop Dose Admin Acetaminophen 650 mg 09/08/20 20:02 09/19/20 18:05 Acetaminophen 325 Mg Tablet PO 650 mg Q6H PRN Administration Headache/Pain Mild Scale (1-3) Al Hydroxide/Mg Hydroxide 30 ml 09/08/20 20:02 09/25/20 16:02 Magnesium Hydrox/Alum Hydrox 30 Ml Oral.Susp PO 30 ml Q6H PRN Administration Heartburn/Nausea Dorzolamide HCl 1 drop 09/11/20 15:00 09/27/20 09:09 Dorzolamide Hcl 2 % Ophth Catina 10 Ml Drpbtl EYE-RIGHT Not Given TID JOSE RAFAEL Hydroxyzine HCl 25 mg 09/08/20 20:02 09/21/20 00:50 Hydroxyzine Hcl 25 Mg Tablet PO 25 mg BEDTIME PRN Administration Anxiety Magnesium Hydroxide 30 ml 09/08/20 20:02 09/27/20 13:09 Milk Of Magnesia 30 Ml Oral.Susp PO 30 ml DAILY PRN Administration Constipation Patient Own 1 each 09/11/20 21:00 09/27/20 09:09 Medication (Combigan EYE-BOTH Not Given Eye Drops) BID [facility] Pharmacy Consult 1 each 09/03/20 09:51 Consult Rx Perform Med Rec MISCELLANE ONCE PRN Consult order Risperidone 1 mg 09/17/20 09:00 09/27/20 08:35 Risperidone 1 Mg Tablet PO 1 mg DAILY JOSE RAFAEL Administration Risperidone 2 mg 09/16/20 21:00 09/26/20 20:33 Risperidone 2 Mg Tablet PO 2 mg BEDTIME JOSE RAFAEL Administration Trazodone HCl 25 mg 09/16/20 21:00 09/26/20 20:38 Trazodone Hcl 25 Mg Halftab PO Not Given BEDTIME JOSE RAFAEL Venlafaxine HCl 37.5 mg 09/23/20 09:00 09/27/20 08:35 Venlafaxine Hcl Er 37.5 Mg Cap.Er.24h PO 37.5 mg DAILY JOSE RAFAEL Administration Allergies Allergies Allergy/AdvReac Type Severity Reaction Status Date / Time No Known Allergies Allergy Verified 09/03/20 03:47 Assessment & Plan Assessment & Plan (1) Paraneoplastic syndrome: Status: Acute Assessment and Plan: Pending further MRI of pelvis/abdomen investigate status of renal carcinoma as pt current psychiatric symptoms including somewhat acute cognitive/memory impairments, 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 1. continue current medications. (2) Major depression with psychotic features: Status: Acute Code(s): F32.3 - Major depressive disorder, single episode, severe with psychotic features Greater than 50% of the session was spent on counseling and/or coordination of care Reason for contiued inpatient stay Substantial Risk for: inability to function
[2020-09-27 18:00] VITALS: BP 136/86; PULSE 109; RESP 16; TEMP 37; O2SAT 96
[2020-09-27] MEDS: risperiDONE 2 MG TABLET PO (20:52)
[2020-09-27] MEDS: Dorzolamide HCl 2 % Ophth Sol 10 ML DRPBTL 1 DROP EYE-RIGHT (20:52)
[2020-09-27] MEDS: traZODone HCL 25 MG HALFTAB PO (20:52)
[2020-09-28 06:05] VITALS: BP 147/85; PULSE 102; RESP 16; TEMP 36.3; O2SAT 96
[2020-09-28] MEDS: risperiDONE 1 MG TABLET PO (08:49)
[2020-09-28] MEDS: Venlafaxine HCl ER 37.5 MG CAP.ER.24H PO (08:50)
--- NOTE | 2020-09-28 15:42 | HO.PSYCHPN ---
Subjective Subjective Date of Service: 09/28/20 Reason For Visit: Depression with psychosis Interim History: Pt has been more visible in room. He interacts with roommate at times but does not attend assigned groups. He denies VH/AH. He does not appear as guarded and paranoid. He is not reporting that his room is bugged. However, evident cognitive/memory impairments continue to persist. New MOCA completed today for follow up. He scored 10/30, most difficulties with visuospatial/executive function, recall (0/5), attention, language fluency and repetition, abstraction. He is somewhat irritable at times. He denies SI/HI. He denies symptoms of depression. He intially agreed to have abdominal MRI to rule out renal carcinoma, but when asked to bring down he declined. He does not appear to fully understand rationale and does not explain reason for declining. Review of Systems Review of Systems No recent cold or flu-like illness. Yes all other systems are reviewed and are negative (pt denies) and Unobtainable due to mental status (asleep ) Constitutional: Reports no additional constitutional complaints, Reports fatigue, Reports lethargy, Reports poor appetite, Reports weakness and Reports weight loss Eyes: Reports no additional eye complaints Reports system reviewed and no additional complaints, except as documented Cardiovascular: Reports no additional cardiovascular complaints Respiratory: Reports no additional respiratory complaints Gastrointestinal: Reports no additional gastrointestinal complaints and Reports constipation Genitourinary: Reports no additional male genitourinary complaints Musculoskeletal: Reports no additional musculoskeletal complaints Skin/Breast: Reports system reviewed and no additional complaints, except as docu Reports behavioral changes, Reports confusion and Reports weakness Psychiatric: Reports no additional psychiatric complaints, Reports abnormal sleep pattern, Reports anxiety, Reports behavioral changes, Reports confusion, Reports depression (denies), Reports difficulty concentrating and Reports other (anergy) Endocrine: Reports no additional endocrine complaints and Reports fatigue Hematologic/Lymphatic: Reports no additional hematologic/lymphatic complaints Allergic/Immunologic: Reports no additional allergic/immunologic complaints Mental Status Exam Mental Status Exam Narrative: Appearance: thin, casually groomed, improved hygiene, in NAD Behavior: somewhat guarded, irritable at times Psychomotor: no retardation or agitation noted Speech: clear, slowed rate/rhythm/volume, spontaneous TP: more linear TC: anxious about his health, confused about why he is in hospital or plan Mood: better Affect:slightly brighter SI:denies HI:denies AH/VH:denies Delusions:less paranoid delusions Insight/judgment:impaired x 2 Memory/cog: alert, significant impairment in different aspects based on MOCA 9/30 most difficulty with visuo spatial, attention, recall, language fluency. will redo as pt less paranoid/anxious Diagnostics Vital Signs (24Hr): Vital Signs - 24 hr 09/27/20 18:00 09/28/20 06:05 Temperature 98.6 F 97.3 F Pulse Rate 109 H 102 H Respiratory Rate 16 16 Blood Pressure 136/86 147/85 H Pulse Oximetry 96 96 Body Mass Index 19.1 Labs Results: 09/03/20 04:25 09/14/20 14:07 Imaging Radiology Impressions: ITS Impressions Head CT 09/03/20 03:56 IMPRESSION: No evidence for acute intracranial injury. Automated exposure control (Care Dose) Adjustment of the mA and/or kv according to patient size (this includes techniques or standardized protocols for targeted exams where dose is matched to indication / reason for exam; i.e. extremities or head). Brain MRI 09/20/20 10:13 IMPRESSION: 1. No acute intracranial abnormalities. 2. Mild underlying microangiopathy and generalized cerebral volume loss. Medications Medications Current Medications Generic Name Dose Route Start Last Admin Trade Name Freq PRN Reason Stop Dose Admin Acetaminophen 650 mg 09/08/20 20:02 09/19/20 18:05 Acetaminophen 325 Mg Tablet PO 650 mg Q6H PRN Administration Headache/Pain Mild Scale (1-3) Al Hydroxide/Mg Hydroxide 30 ml 09/08/20 20:02 09/25/20 16:02 Magnesium Hydrox/Alum Hydrox 30 Ml Oral.Susp PO 30 ml Q6H PRN Administration Heartburn/Nausea Dorzolamide HCl 1 drop 09/11/20 15:00 09/28/20 14:45 Dorzolamide Hcl 2 % Ophth Catina 10 Ml Drpbtl EYE-RIGHT Not Given TID JOSE RAFAEL Hydroxyzine HCl 25 mg 09/08/20 20:02 09/21/20 00:50 Hydroxyzine Hcl 25 Mg Tablet PO 25 mg BEDTIME PRN Administration Anxiety Magnesium Hydroxide 30 ml 09/08/20 20:02 09/27/20 13:09 Milk Of Magnesia 30 Ml Oral.Susp PO 30 ml DAILY PRN Administration Constipation Patient Own 1 each 09/11/20 21:00 09/28/20 11:19 Medication (Combigan EYE-BOTH Not Given Eye Drops) BID [facility] Consult 1 each 09/03/20 09:51 Consult Rx Perform Med Rec MISCELLANE ONCE PRN Consult order Risperidone 1 mg 09/17/20 09:00 09/28/20 08:49 Risperidone 1 Mg Tablet PO 1 mg DAILY JOSE RAFAEL Administration Risperidone 2 mg 09/16/20 21:00 09/27/20 20:52 Risperidone 2 Mg Tablet PO 2 mg BEDTIME JOSE RAFAEL Administration Trazodone HCl 25 mg 09/16/20 21:00 09/27/20 20:52 Trazodone Hcl 25 Mg Halftab PO 25 mg BEDTIME JOSE RAFAEL Administration Venlafaxine HCl 37.5 mg 09/23/20 09:00 09/28/20 08:50 Venlafaxine Hcl Er 37.5 Mg Cap.Er.24h PO 37.5 mg DAILY JOSE RAFAEL Administration Allergies Allergies Allergy/AdvReac Type Severity Reaction Status Date / Time No Known Allergies Allergy Verified 09/03/20 03:47 Assessment & Plan Assessment & Plan (1) Paraneoplastic syndrome: Status: Acute Assessment and Plan: Pending further MRI of pelvis/abdomen investigate status of renal carcinoma as pt current psychiatric symptoms including somewhat acute cognitive/memory impairments, 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 1. continue current medications. (2) Major depression with psychotic features: Status: Acute Code(s): F32.3 - Major depressive disorder, single episode, severe with psychotic features Greater than 50% of the session was spent on counseling and/or coordination of care Reason for contiued inpatient stay Substantial Risk for: inability to function
[2020-09-28 16:45] VITALS: BP 130/79; PULSE 90; TEMP 37.1
[2020-09-28] MEDS: risperiDONE 2 MG TABLET PO (20:48)
[2020-09-28] MEDS: Dorzolamide HCl 2 % Ophth Sol 10 ML DRPBTL 1 DROP EYE-RIGHT (20:48)
[2020-09-28] MEDS: traZODone HCL 25 MG HALFTAB PO (20:48)
[2020-09-29 06:00] VITALS: BP 135/89; PULSE 96; RESP 20; TEMP 36.3; O2SAT 95
[2020-09-29] MEDS: Venlafaxine HCl ER 37.5 MG CAP.ER.24H PO (08:51)
[2020-09-29] MEDS: risperiDONE 1 MG TABLET PO (08:51)
[2020-09-29] MEDS: LORazepam 1 MG TABLET 2 MG PO (12:40)
--- NOTE | 2020-09-29 16:20 | HO.PSYCHPN ---
Subjective Subjective Date of Service: 09/30/20 Reason For Visit: Depression with psychosis Interim History: Pt reports mood has improved in that he is less anxious. He is not able to provide more information about what changes in mood/psychosis he has noticed with current medications. He's been more visible in unit but not very interactive with peers. He denies VH/AH. He does not appear as guarded and paranoid but at times irritable. Review of Systems Review of Systems No recent cold or flu-like illness. Yes all other systems are reviewed and are negative (pt denies) and Unobtainable due to mental status (asleep ) Constitutional: Reports no additional constitutional complaints, Reports fatigue, Reports lethargy, Reports poor appetite, Reports weakness and Reports weight loss Eyes: Reports no additional eye complaints Reports system reviewed and no additional complaints, except as documented Cardiovascular: Reports no additional cardiovascular complaints Respiratory: Reports no additional respiratory complaints Gastrointestinal: Reports no additional gastrointestinal complaints and Reports constipation Genitourinary: Reports no additional male genitourinary complaints Musculoskeletal: Reports no additional musculoskeletal complaints Skin/Breast: Reports system reviewed and no additional complaints, except as docu Reports behavioral changes, Reports confusion and Reports weakness Psychiatric: Reports no additional psychiatric complaints, Reports abnormal sleep pattern, Reports anxiety, Reports behavioral changes, Reports confusion, Reports depression (denies), Reports difficulty concentrating and Reports other (anergy) Endocrine: Reports no additional endocrine complaints and Reports fatigue Hematologic/Lymphatic: Reports no additional hematologic/lymphatic complaints Allergic/Immunologic: Reports no additional allergic/immunologic complaints Mental Status Exam Mental Status Exam Narrative: Appearance: thin, casually groomed, improved hygiene, in NAD Behavior: somewhat guarded, irritable at times Psychomotor: no retardation or agitation noted Speech: clear, slowed rate/rhythm/volume, spontaneous TP: more linear TC: anxious about his health, confused about why he is in hospital or plan Mood: better Affect:slightly brighter SI:denies HI:denies AH/VH:denies Delusions:less paranoid delusions Insight/judgment:impaired x 2 Memory/cog: alert, significant impairment in different aspects based on MOCA 9/30 most difficulty with visuo spatial, attention, recall, language fluency. will redo as pt less paranoid/anxious Diagnostics Vital Signs (24Hr): Vital Signs - 24 hr 09/28/20 16:45 09/29/20 06:00 Temperature 98.7 F 97.3 F Pulse Rate 90 96 Respiratory Rate 20 Blood Pressure 130/79 135/89 Pulse Oximetry 95 Body Mass Index 19.1 Labs Results: 09/03/20 04:25 09/14/20 14:07 Imaging Radiology Impressions: ITS Impressions Head CT 09/03/20 03:56 IMPRESSION: No evidence for acute intracranial injury. Automated exposure control (Care Dose) Adjustment of the mA and/or kv according to patient size (this includes techniques or standardized protocols for targeted exams where dose is matched to indication / reason for exam; i.e. extremities or head). Brain MRI 09/20/20 10:13 IMPRESSION: 1. No acute intracranial abnormalities. 2. Mild underlying microangiopathy and generalized cerebral volume loss. Medications Medications Current Medications Generic Name Dose Route Start Last Admin Trade Name Freq PRN Reason Stop Dose Admin Acetaminophen 650 mg 09/08/20 20:02 09/19/20 18:05 Acetaminophen 325 Mg Tablet PO 650 mg Q6H PRN Administration Headache/Pain Mild Scale (1-3) Al Hydroxide/Mg Hydroxide 30 ml 09/08/20 20:02 09/25/20 16:02 Magnesium Hydrox/Alum Hydrox 30 Ml Oral.Susp PO 30 ml Q6H PRN Administration Heartburn/Nausea Dorzolamide HCl 1 drop 09/11/20 15:00 09/29/20 15:36 Dorzolamide Hcl 2 % Ophth Catina 10 Ml Drpbtl EYE-RIGHT Not Given TID JOSE RAFAEL Hydroxyzine HCl 25 mg 09/08/20 20:02 09/21/20 00:50 Hydroxyzine Hcl 25 Mg Tablet PO 25 mg BEDTIME PRN Administration Anxiety Magnesium Hydroxide 30 ml 09/08/20 20:02 09/27/20 13:09 Milk Of Magnesia 30 Ml Oral.Susp PO 30 ml DAILY PRN Administration Constipation Patient Own 1 each 09/11/20 21:00 09/29/20 09:05 Medication (Combigan EYE-BOTH Not Given Eye Drops) BID [facility] Pharmacy Consult 1 each 09/03/20 09:51 Consult Rx Perform Med Rec MISCELLANE ONCE PRN Consult order Risperidone 1 mg 09/17/20 09:00 09/29/20 08:51 Risperidone 1 Mg Tablet PO 1 mg DAILY JOSE RAFAEL Administration Risperidone 2 mg 09/16/20 21:00 09/28/20 20:48 Risperidone 2 Mg Tablet PO 2 mg BEDTIME JOSE RAFAEL Administration Trazodone HCl 25 mg 09/16/20 21:00 09/28/20 20:48 Trazodone Hcl 25 Mg Halftab PO 25 mg BEDTIME JOSE RAFAEL Administration Venlafaxine HCl 37.5 mg 09/23/20 09:00 09/29/20 08:51 Venlafaxine Hcl Er 37.5 Mg Cap.Er.24h PO 37.5 mg DAILY JOSE RAFAEL Administration Allergies Allergies Allergy/AdvReac Type Severity Reaction Status Date / Time No Known Allergies Allergy Verified 09/03/20 03:47 Assessment & Plan Assessment & Plan (1) Paraneoplastic syndrome: Status: Acute Assessment and Plan: Pending further MRI of pelvis/abdomen investigate status of renal carcinoma as pt current psychiatric symptoms including somewhat acute cognitive/memory impairments, 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 1. continue current medications. (2) Major depression with psychotic features: Status: Acute Code(s): F32.3 - Major depressive disorder, single episode, severe with psychotic features Greater than 50% of the session was spent on counseling and/or coordination of care Reason for contiued inpatient stay Substantial Risk for: inability to function
[2020-09-29 16:24] VITALS: BP 98/68; PULSE 119; RESP 16; TEMP 36.9; O2SAT 96
[2020-09-29] MEDS: risperiDONE 2 MG TABLET PO (20:55)
[2020-09-29] MEDS: traZODone HCL 25 MG HALFTAB PO (20:55)
[2020-09-30 06:00] VITALS: BP 114/70; PULSE 107; RESP 18; TEMP 36.6; O2SAT 95
[2020-09-30] MEDS: risperiDONE 1 MG TABLET PO (08:31)
[2020-09-30] MEDS: Venlafaxine HCl ER 37.5 MG CAP.ER.24H PO (08:31)
[2020-09-30 10:22] VITALS: BMI 19.0
[2020-09-30] MEDS: Dorzolamide HCl 2 % Ophth Sol 10 ML DRPBTL 1 DROP EYE-RIGHT ×2 (14:27→21:55)
--- NOTE | 2020-09-30 16:48 | HO.PSYCHPN ---
Subjective Subjective Date of Service: 09/30/20 Reason For Visit: Depression with psychosis Subjective Notes: Conditional Voluntary Interim History: Pt reports mood feeling less tired during the day. He reports sleeping and eating well. He denies VH/AH. He continues to present with memory/cog impairments needed orientation to his room. He has been visible in the unit at times but minimally interactive with peers. He denies SI/HI. He lacks insight into memory/cognitive impairments. Results of abdominal MRI negative for renal cancer reviewed by Dr. Alston. Medication Compliance: Intermittent Side effects from medications: No Attending Groups: No Review of Systems Review of Systems No recent cold or flu-like illness. Yes all other systems are reviewed and are negative (pt denies) and Unobtainable due to mental status (asleep ) Constitutional: Reports no additional constitutional complaints, Reports fatigue, Reports lethargy, Reports poor appetite, Reports weakness and Reports weight loss Eyes: Reports no additional eye complaints Reports system reviewed and no additional complaints, except as documented Cardiovascular: Reports no additional cardiovascular complaints Respiratory: Reports no additional respiratory complaints Gastrointestinal: Reports no additional gastrointestinal complaints and Reports constipation Genitourinary: Reports no additional male genitourinary complaints Musculoskeletal: Reports no additional musculoskeletal complaints Skin/Breast: Reports system reviewed and no additional complaints, except as docu Reports behavioral changes, Reports confusion and Reports weakness Psychiatric: Reports no additional psychiatric complaints, Reports abnormal sleep pattern, Reports anxiety, Reports behavioral changes, Reports confusion, Reports depression (denies), Reports difficulty concentrating and Reports other (anergy) Endocrine: Reports no additional endocrine complaints and Reports fatigue Hematologic/Lymphatic: Reports no additional hematologic/lymphatic complaints Allergic/Immunologic: Reports no additional allergic/immunologic complaints Mental Status Exam Mental Status Exam Narrative: Appearance: thin, casually groomed, improved hygiene, in NAD Behavior: somewhat guarded, irritable at times Psychomotor: no retardation or agitation noted Speech: clear, slowed rate/rhythm/volume, spontaneous TP: more linear TC: anxious about his health, confused about why he is in hospital or plan Mood: better Affect:slightly brighter SI:denies HI:denies AH/VH:denies Delusions:less paranoid delusions Insight/judgment:impaired x 2 Memory/cog: alert, significant impairment in different aspects based on MOCA 9/30 most difficulty with visuo spatial, attention, recall, language fluency. will redo as pt less paranoid/anxious Diagnostics Vital Signs (24Hr): Vital Signs - 24 hr 09/30/20 06:00 Temperature 98 F Pulse Rate 107 H Respiratory Rate 18 Blood Pressure 114/70 Pulse Oximetry 95 Body Mass Index 19.0 Labs Results: 09/03/20 04:25 09/14/20 14:07 Imaging Radiology Impressions: ITS Impressions Head CT 09/03/20 03:56 IMPRESSION: No evidence for acute intracranial injury. Automated exposure control (Care Dose) Adjustment of the mA and/or kv according to patient size (this includes techniques or standardized protocols for targeted exams where dose is matched to indication / reason for exam; i.e. extremities or head). Brain MRI 09/20/20 10:13 IMPRESSION: 1. No acute intracranial abnormalities. 2. Mild underlying microangiopathy and generalized cerebral volume loss. Abdomen MRI 09/29/20 14:15 IMPRESSION: Limited study due to lack of IV contrast and motion. Status post left nephrectomy. Likely simple cysts in the right kidney. No lymphadenopathy. No mass in the left nephrectomy bed. Medications Medications Current Medications Generic Name Dose Route Start Last Admin Trade Name Freq PRN Reason Stop Dose Admin Acetaminophen 650 mg 09/08/20 20:02 09/19/20 18:05 Acetaminophen 325 Mg Tablet PO 650 mg Q6H PRN Administration Headache/Pain Mild Scale (1-3) Al Hydroxide/Mg Hydroxide 30 ml 09/08/20 20:02 09/25/20 16:02 Magnesium Hydrox/Alum Hydrox 30 Ml Oral.Susp PO 30 ml Q6H PRN Administration Heartburn/Nausea Dorzolamide HCl 1 drop 09/11/20 15:00 09/30/20 14:27 Dorzolamide Hcl 2 % Ophth Catina 10 Ml Drpbtl EYE-RIGHT 1 drop TID JOSE RAFAEL Administration Hydroxyzine HCl 25 mg 09/08/20 20:02 09/21/20 00:50 Hydroxyzine Hcl 25 Mg Tablet PO 25 mg BEDTIME PRN Administration Anxiety Magnesium Hydroxide 30 ml 09/08/20 20:02 09/27/20 13:09 Milk Of Magnesia 30 Ml Oral.Susp PO 30 ml DAILY PRN Administration Constipation Patient Own 1 each 09/11/20 21:00 09/30/20 10:43 Medication (Combigan EYE-BOTH Not Given Eye Drops) BID [facility] Pharmacy Consult 1 each 09/03/20 09:51 Consult Rx Perform Med Rec MISCELLANE ONCE PRN Consult order Risperidone 1 mg 09/17/20 09:00 09/30/20 08:31 Risperidone 1 Mg Tablet PO 1 mg DAILY JOSE RAFAEL Administration Risperidone 2 mg 09/16/20 21:00 09/29/20 20:55 Risperidone 2 Mg Tablet PO 2 mg BEDTIME JOSE RAFAEL Administration Trazodone HCl 25 mg 09/16/20 21:00 09/29/20 20:55 Trazodone Hcl 25 Mg Halftab PO 25 mg BEDTIME JOSE RAFAEL Administration Venlafaxine HCl 75 mg 10/01/20 09:00 Venlafaxine Hcl Er 75 Mg Cap.Er.24h PO DAILY JOSE RAFAEL Allergies Allergies Allergy/AdvReac Type Severity Reaction Status Date / Time No Known Allergies Allergy Verified 09/03/20 03:47 Assessment & Plan Assessment & Plan (1) Major depression with psychotic features: Status: Acute Code(s): F32.3 - Major depressive disorder, single episode, severe with psychotic features Assessment and Plan: 1. increase venlafaxine to 75mg po daily 2. continue risperidone 1mg po daily and 2mg po qhs (2) Dementia: Status: Acute Code(s): F03.90 - Unspecified dementia without behavioral disturbance Assessment and Plan: consider aricept Greater than 50% of the session was spent on counseling and/or coordination of care Reason for contiued inpatient stay Substantial Risk for: inability to function
[2020-09-30 17:52] VITALS: BP 127/76; PULSE 111; RESP 16; TEMP 37.1; O2SAT 95
[2020-09-30] MEDS: risperiDONE 2 MG TABLET PO (21:51)
[2020-09-30] MEDS: traZODone HCL 25 MG HALFTAB PO (21:51)
[2020-10-01 06:00] VITALS: BP 136/80; PULSE 106; RESP 18; TEMP 36.7; O2SAT 95
[2020-10-01] MEDS: Venlafaxine HCl ER 75 MG CAP.ER.24H PO (08:21)
[2020-10-01] MEDS: risperiDONE 1 MG TABLET PO (08:21)
--- NOTE | 2020-10-01 09:47 | HO.PSYCHPN ---
Subjective Subjective Date of Service: 10/02/20 Reason For Visit: Depression with psychosis Interim History: Pt reports he is feeling fine but frustrated about being in hospital. He reports sleeping and eating well. He denies VH/AH. He continues to present with memory/cog impairments needed orientation to his room. He has been visible in the unit at times but minimally interactive with peers. He denies SI/HI. He lacks insight into memory/cognitive impairments. No behavioral concerns Results of abdominal MRI negative for renal cancer reviewed by Dr. Alston. Review of Systems Review of Systems No recent cold or flu-like illness. Yes all other systems are reviewed and are negative (pt denies) and Unobtainable due to mental status (asleep ) Constitutional: Reports no additional constitutional complaints, Reports fatigue, Reports lethargy, Reports poor appetite, Reports weakness and Reports weight loss Eyes: Reports no additional eye complaints Reports system reviewed and no additional complaints, except as documented Cardiovascular: Reports no additional cardiovascular complaints Respiratory: Reports no additional respiratory complaints Gastrointestinal: Reports no additional gastrointestinal complaints and Reports constipation Genitourinary: Reports no additional male genitourinary complaints Musculoskeletal: Reports no additional musculoskeletal complaints Skin/Breast: Reports system reviewed and no additional complaints, except as docu Reports behavioral changes, Reports confusion and Reports weakness Psychiatric: Reports no additional psychiatric complaints, Reports abnormal sleep pattern, Reports anxiety, Reports behavioral changes, Reports confusion, Reports depression (denies), Reports difficulty concentrating and Reports other (anergy) Endocrine: Reports no additional endocrine complaints and Reports fatigue Hematologic/Lymphatic: Reports no additional hematologic/lymphatic complaints Allergic/Immunologic: Reports no additional allergic/immunologic complaints Mental Status Exam Mental Status Exam Narrative: Appearance: thin, casually groomed, improved hygiene, in NAD Behavior: somewhat guarded, irritable at times Psychomotor: no retardation or agitation noted Speech: clear, slowed rate/rhythm/volume, spontaneous TP: more linear TC: anxious about his health, confused about why he is in hospital or plan Mood: better Affect:slightly brighter SI:denies HI:denies AH/VH:denies Delusions:less paranoid delusions Insight/judgment:impaired x 2 Memory/cog: alert, significant impairment in different aspects based on MOCA 03/03 most difficulty with visuo spatial, attention, recall, language fluency. Repeat MOCA on 09/29 04/02, similar pattern of impairments, slight improvement in orientation. Diagnostics Vital Signs (24Hr): Vital Signs - 24 hr 10/01/20 18:20 10/02/20 06:10 Temperature 98.5 F 98.7 F Pulse Rate 84 95 Respiratory Rate 16 Blood Pressure 117/58 L 140/85 H Pulse Oximetry 96 Body Mass Index 19.0 Labs Results: 09/03/20 04:25 09/14/20 14:07 Imaging Radiology Impressions: ITS Impressions Head CT 09/03/20 03:56 IMPRESSION: No evidence for acute intracranial injury. Automated exposure control (Care Dose) Adjustment of the mA and/or kv according to patient size (this includes techniques or standardized protocols for targeted exams where dose is matched to indication / reason for exam; i.e. extremities or head). Brain MRI 09/20/20 10:13 IMPRESSION: 1. No acute intracranial abnormalities. 2. Mild underlying microangiopathy and generalized cerebral volume loss. Abdomen MRI 09/29/20 14:15 IMPRESSION: Limited study due to lack of IV contrast and motion. Status post left nephrectomy. Likely simple cysts in the right kidney. No lymphadenopathy. No mass in the left nephrectomy bed. Medications Medications Current Medications Generic Name Dose Route Start Last Admin Trade Name Freq PRN Reason Stop Dose Admin Acetaminophen 650 mg 09/08/20 20:02 09/19/20 18:05 Acetaminophen 325 Mg Tablet PO 650 mg Q6H PRN Administration Headache/Pain Mild Scale (1-3) Al Hydroxide/Mg Hydroxide 30 ml 09/08/20 20:02 09/25/20 16:02 Magnesium Hydrox/Alum Hydrox 30 Ml Oral.Susp PO 30 ml Q6H PRN Administration Heartburn/Nausea Dorzolamide HCl 1 drop 09/11/20 15:00 10/02/20 08:39 Dorzolamide Hcl 2 % Ophth Catina 10 Ml Drpbtl EYE-RIGHT 1 drop TID [facility]SE [facility] Administration Hydroxyzine HCl 25 mg 09/08/20 20:02 09/21/20 00:50 Hydroxyzine Hcl 25 Mg Tablet PO 25 mg BEDTIME PRN Administration Anxiety Magnesium Hydroxide 30 ml 09/08/20 20:02 09/27/20 13:09 Milk Of Magnesia 30 Ml Oral.Susp PO 30 ml DAILY PRN Administration Constipation Patient Own 1 each 09/11/20 21:00 10/02/20 08:55 Medication (Combigan EYE-BOTH 1 each Eye Drops) BID [facility]SE [facility] Administration Pharmacy Consult 1 each 09/03/20 09:51 Consult Rx Perform Med Rec MISCELLANE ONCE PRN Consult order Risperidone 1 mg 09/17/20 09:00 10/02/20 08:28 Risperidone 1 Mg Tablet PO 1 mg DAILY [facility]SE [facility] Administration Risperidone 2 mg 09/16/20 21:00 10/01/20 20:07 Risperidone 2 Mg Tablet PO 2 mg BEDTIME JOSE [facility] Administration Trazodone HCl 25 mg 09/16/20 21:00 10/01/20 20:07 Trazodone Hcl 25 Mg Halftab PO 25 mg BEDTIME JOSE [facility] Administration Venlafaxine HCl 75 mg 10/01/20 09:00 10/02/20 08:28 Venlafaxine Hcl Er 75 Mg Cap.Er.24h PO 75 mg DAILY JOSE [facility] Administration Allergies Allergies Allergy/AdvReac Type Severity Reaction Status Date / Time No Known Allergies Allergy Verified 09/03/20 03:47 Assessment & Plan Assessment & Plan (1) Major depression with psychotic features: Status: Acute Code(s): F32.3 - Major depressive disorder, single episode, severe with psychotic features Assessment and Plan: 1. increase venlafaxine to 75mg po daily 2. continue risperidone 1mg po daily and 2mg po qhs (2) Dementia: Status: Acute Code(s): F03.90 - Unspecified dementia without behavioral disturbance Assessment and Plan: consider aricept Greater than 50% of the session was spent on counseling and/or coordination of care Reason for contiued inpatient stay Substantial Risk for: inability to function
[2020-10-01 18:20] VITALS: BP 117/58; PULSE 84; TEMP 36.9
[2020-10-01] MEDS: risperiDONE 2 MG TABLET PO (20:07)
[2020-10-01] MEDS: traZODone HCL 25 MG HALFTAB PO (20:07)
[2020-10-01] MEDS: Dorzolamide HCl 2 % Ophth Sol 10 ML DRPBTL 1 DROP EYE-RIGHT (20:07)
[2020-10-02 06:10] VITALS: BP 140/85; PULSE 95; RESP 16; TEMP 37.1; O2SAT 96
[2020-10-02] MEDS: risperiDONE 1 MG TABLET PO (08:28)
[2020-10-02] MEDS: Venlafaxine HCl ER 75 MG CAP.ER.24H PO (08:28)
[2020-10-02] MEDS: Dorzolamide HCl 2 % Ophth Sol 10 ML DRPBTL 1 DROP EYE-RIGHT ×2 (08:39→20:08)
--- NOTE | 2020-10-02 10:27 | HO.PSYCHPN ---
Subjective Subjective Date of Service: 10/02/20 Reason For Visit: Depression with psychosis Interim History: Chart reviewed; case discussed with team. Vitals reviewed: grossly WNL Pt says he's doing not bad and that his mood is better. He denies any SI or AVH. Still has anxiety and would like more clonazepam; he says he gets dizzy if he uses clonidine. Otherwise no complants. Mental Status Exam Mental Status Exam Narrative: Narrative: Appearance: thin, casually groomed, improved hygiene, in NAD Behavior: calm, cooperative Psychomotor: no retardation or agitation noted Speech: clear, slowed rate/rhythm/volume, spontaneous TP: linear, goal oriented TC: dealing with anxiety Mood: better Affect:congruent SI:denies HI:denies AH/VH:denies Delusions:no paranoid delusions expressed Insight/judgment:impaired x 2 Memory/cog: alert, significant impairment in different aspects based on MOCA 03/03 most difficulty with visuo spatial, attention, recall, language fluency. Repeat MOCA on 09/29 04/02, similar pattern of impairments, slight improvement in orientation. Diagnostics Vital Signs (24Hr): Vital Signs - 24 hr 10/01/20 18:20 10/02/20 06:10 Temperature 98.5 F 98.7 F Pulse Rate 84 95 Respiratory Rate 16 Blood Pressure 117/58 L 140/85 H Pulse Oximetry 96 Body Mass Index 19.0 Labs Results: 09/03/20 04:25 09/14/20 14:07 Imaging Radiology Impressions: ITS Impressions Head CT 09/03/20 03:56 IMPRESSION: No evidence for acute intracranial injury. Automated exposure control (Care Dose) Adjustment of the mA and/or kv according to patient size (this includes techniques or standardized protocols for targeted exams where dose is matched to indication / reason for exam; i.e. extremities or head). Brain MRI 09/20/20 10:13 IMPRESSION: 1. No acute intracranial abnormalities. 2. Mild underlying microangiopathy and generalized cerebral volume loss. Abdomen MRI 09/29/20 14:15 IMPRESSION: Limited study due to lack of IV contrast and motion. Status post left nephrectomy. Likely simple cysts in the right kidney. No lymphadenopathy. No mass in the left nephrectomy bed. Medications Medications Current Medications Generic Name Dose Route Start Last Admin Trade Name Freq PRN Reason Stop Dose Admin Acetaminophen 650 mg 09/08/20 20:02 09/19/20 18:05 Acetaminophen 325 Mg Tablet PO 650 mg Q6H PRN Administration Headache/Pain Mild Scale (1-3) Al Hydroxide/Mg Hydroxide 30 ml 09/08/20 20:02 09/25/20 16:02 Magnesium Hydrox/Alum Hydrox 30 Ml Oral.Susp PO 30 ml Q6H PRN Administration Heartburn/Nausea Dorzolamide HCl 1 drop 09/11/20 15:00 10/02/20 08:39 Dorzolamide Hcl 2 % Ophth Catina 10 Ml Drpbtl EYE-RIGHT 1 drop TID JOSE [facility] Administration Hydroxyzine HCl 25 mg 09/08/20 20:02 09/21/20 00:50 Hydroxyzine Hcl 25 Mg Tablet PO 25 mg BEDTIME PRN Administration Anxiety Magnesium Hydroxide 30 ml 09/08/20 20:02 09/27/20 13:09 Milk Of Magnesia 30 Ml Oral.Susp PO 30 ml DAILY PRN Administration Constipation Patient Own 1 each 09/11/20 21:00 10/02/20 08:55 Medication (Combigan EYE-BOTH 1 each Eye Drops) BID JOSE [facility] Administration Pharmacy Consult 1 each 09/03/20 09:51 Consult Rx Perform Med Rec MISCELLANE ONCE PRN Consult order Risperidone 1 mg 09/17/20 09:00 10/02/20 08:28 Risperidone 1 Mg Tablet PO 1 mg DAILY JOSE [facility] Administration Risperidone 2 mg 09/16/20 21:00 10/01/20 20:07 Risperidone 2 Mg Tablet PO 2 mg BEDTIME JOSE [facility] Administration Trazodone HCl 25 mg 09/16/20 21:00 10/01/20 20:07 Trazodone Hcl 25 Mg Halftab PO 25 mg BEDTIME JOSE [facility] Administration Venlafaxine HCl 75 mg 10/01/20 09:00 10/02/20 08:28 Venlafaxine Hcl Er 75 Mg Cap.Er.24h PO 75 mg DAILY JOSE [facility] Administration Allergies Allergies Allergy/AdvReac Type Severity Reaction Status Date / Time No Known Allergies Allergy Verified 09/03/20 03:47 Assessment & Plan Assessment & Plan (1) Major depression with psychotic features: Status: Acute Code(s): F32.3 - Major depressive disorder, single episode, severe with psychotic features Assessment and Plan: F/P stabilizing; improved symptoms No changes to primary team tx plan 1. continue venlafaxine to 75mg po daily 2. continue risperidone 1mg po daily and 2mg po qhs (2) Dementia: Status: Acute Code(s): F03.90 - Unspecified dementia without behavioral disturbance Assessment and Plan: consider aricept Greater than 50% of the session was spent on counseling and/or coordination of care Reason for contiued inpatient stay Substantial Risk for: med/psych decompensation
[2020-10-02 16:42] VITALS: BP 138/94; PULSE 97; TEMP 36.9
[2020-10-02] MEDS: risperiDONE 2 MG TABLET PO (20:08)
[2020-10-02] MEDS: traZODone HCL 25 MG HALFTAB PO (20:08)
[2020-10-03 06:00] VITALS: BP 123/86; PULSE 89; RESP 16; TEMP 36.6; O2SAT 94
[2020-10-03] MEDS: Venlafaxine HCl ER 75 MG CAP.ER.24H PO (08:58)
[2020-10-03] MEDS: risperiDONE 1 MG TABLET PO (08:58)
[2020-10-03] MEDS: Dorzolamide HCl 2 % Ophth Sol 10 ML DRPBTL 1 DROP EYE-RIGHT ×2 (09:06→21:05)
--- NOTE | 2020-10-03 09:13 | P.PNPSI_ITS ---
Subjective Subjective Date of Service: 10/03/20 Reason For Visit: Depression with psychosis Interim History: Chart reviewed; case discussed with team. Vitals reviewed: WNL Pt says he's good and denies any SI, avh or paranoid thinking. Inbound Telemarketer mentioned showering (which nursing has tried to get him to do-keeps saying i will do it later ), to which patient says i know... Pt says he does not need anything, but offers I will let you know if something comes up. Mental Status Exam Mental Status Exam Narrative: Appearance: thin, casually groomed with cap; scruffy gill, mildly malodorous Behavior: calm, cooperative Psychomotor: no retardation or agitation noted Speech: clear, mildly slowed rate/rhythm/ soft spoken TP: linear, goal oriented TC: dealing with anxiety Mood: good Affect:guarded SI:denies HI:denies AH/VH:denies Delusions:no paranoid delusions expressed Insight/judgment:impaired x 2 Memory/cog: alert, significant impairment in different aspects based on MOCA 9/3 0 most difficulty with visuo spatial, attention, recall, language fluency. Repeat MOCA on 09/29 04/02, similar pattern of impairments, slight improvement in orientation. Diagnostics Vital Signs (24Hr): Vital Signs - 24 hr 10/02/20 16:42 10/03/20 06:00 Temperature 98.4 F 97.8 F Pulse Rate 97 89 Respiratory Rate 16 Blood Pressure 138/94 H 123/86 Pulse Oximetry 94 Body Mass Index 19.0 Labs Results: 09/03/20 04:25 09/14/20 14:07 Imaging Radiology Impressions: ITS Impressions Head CT 09/03/20 03:56 IMPRESSION: No evidence for acute intracranial injury. Automated exposure control (Care Dose) Adjustment of the mA and/or kv according to patient size (this includes techniques or standardized protocols for targeted exams where dose is matched to indication / reason for exam; i.e. extremities or head). Brain MRI 09/20/20 10:13 IMPRESSION: 1. No acute intracranial abnormalities. 2. Mild underlying microangiopathy and generalized cerebral volume loss. Abdomen MRI 09/29/20 14:15 IMPRESSION: Limited study due to lack of IV contrast and motion. Status post left nephrectomy. Likely simple cysts in the right kidney. No lymphadenopathy. No mass in the left nephrectomy bed. Medications Medications Current Medications Generic Name Dose Route Start Last Admin Trade Name Freq PRN Reason Stop Dose Admin Acetaminophen 650 mg 09/08/20 20:02 09/19/20 18:05 Acetaminophen 325 Mg Tablet PO 650 mg Q6H PRN Administration Headache/Pain Mild Scale (1-3) Al Hydroxide/Mg Hydroxide 30 ml 09/08/20 20:02 09/25/20 16:02 Magnesium Hydrox/Alum Hydrox 30 Ml Oral.Susp PO 30 ml Q6H PRN Administration Heartburn/Nausea Dorzolamide HCl 1 drop 09/11/20 15:00 10/03/20 09:06 Dorzolamide Hcl 2 % Ophth Catina 10 Ml Drpbtl EYE-RIGHT 1 drop TID JOSE RAFAEL Administration Hydroxyzine HCl 25 mg 09/08/20 20:02 09/21/20 00:50 Hydroxyzine Hcl 25 Mg Tablet PO 25 mg BEDTIME PRN Administration Anxiety Magnesium Hydroxide 30 ml 09/08/20 20:02 09/27/20 13:09 Milk Of Magnesia 30 Ml Oral.Susp PO 30 ml DAILY PRN Administration Constipation Patient Own 1 each 09/11/20 21:00 10/02/20 20:08 Medication (Combigan EYE-BOTH 1 each Eye Drops) BID JOSE RAFAEL Administration Pharmacy Consult 1 each 09/03/20 09:51 Consult Rx Perform Med Rec MISCELLANE ONCE PRN Consult order Risperidone 1 mg 09/17/20 09:00 10/03/20 08:58 Risperidone 1 Mg Tablet PO 1 mg DAILY JOSE RAFA[facility] Administration Risperidone 2 mg 09/16/20 21:00 10/02/20 20:08 Risperidone 2 Mg Tablet PO 2 mg BEDTIME JOSE RAFAEL Administration Trazodone HCl 25 mg 09/16/20 21:00 10/02/20 20:08 Trazodone Hcl 25 Mg Halftab PO 25 mg BEDTIME JOSE RAFAEL Administration Venlafaxine HCl 75 mg 10/01/20 09:00 10/03/20 08:58 Venlafaxine Hcl Er 75 Mg Cap.Er.24h PO 75 mg DAILY JOSE RAFAEL Administration Allergies Allergies Allergy/AdvReac Type Severity Reaction Status Date / Time No Known Allergies Allergy Verified 09/03/20 03:47 Assessment & Plan Assessment & Plan (1) Major depression with psychotic features: Status: Acute Code(s): F32.3 - Major depressive disorder, single episode, severe with psychotic features Assessment and Plan: F/P no change since yesterday; stabilizing; staff and pt report improved symptoms No changes to primary team tx plan 1. continue venlafaxine to 75mg po daily 2. continue risperidone 1mg po daily and 2mg po qhs (2) Dementia: Status: Acute Code(s): F03.90 - Unspecified dementia without behavioral disturbance Assessment and Plan: consider aricept Greater than 50% of the session was spent on counseling and/or coordination of care Reason for contiued inpatient stay Substantial Risk for: med/psych decompensation
[2020-10-03 18:00] VITALS: BP 120/62; PULSE 101; TEMP 36.5
[2020-10-03] MEDS: traZODone HCL 25 MG HALFTAB PO (21:04)
[2020-10-03] MEDS: risperiDONE 2 MG TABLET PO (21:04)
[2020-10-04 06:45] VITALS: BP 147/101; PULSE 96; RESP 16; TEMP 36.8; O2SAT 97
[2020-10-04] MEDS: risperiDONE 1 MG TABLET PO (08:14)
[2020-10-04] MEDS: Venlafaxine HCl ER 75 MG CAP.ER.24H PO (08:14)
[2020-10-04] MEDS: Dorzolamide HCl 2 % Ophth Sol 10 ML DRPBTL 1 DROP EYE-RIGHT ×2 (10:42→20:41)
[2020-10-04 16:42] VITALS: BP 104/61; PULSE 117; TEMP 36.7
--- NOTE | 2020-10-04 17:22 | HO.PSYCHPN ---
Subjective Subjective Date of Service: 10/04/20 Reason For Visit: Depression with psychosis Interim History: Pt reports eating and sleeping better. He is somewhat suspicious about signing forms without assistance of his daughter. He denies SI/HI. Daughter came for meeting to discuss cognitive impairments, concerns about living independently. Pt able to understand HCP form once explained with daughter present. He signed it and appointed daughter as HCP. He denies SI/HI. We discussed options of [facility], rest homes. His insurance does not cover [employer] or in-home services. Review of Systems Review of Systems No recent cold or flu-like illness. Yes all other systems are reviewed and are negative (pt denies) and Unobtainable due to mental status (asleep ) Constitutional: Reports fatigue and Reports weakness Eyes: Reports no additional eye complaints Reports system reviewed and no additional complaints, except as documented Cardiovascular: Reports no additional cardiovascular complaints Respiratory: Reports no additional respiratory complaints Gastrointestinal: Reports no additional gastrointestinal complaints and Reports constipation Genitourinary: Reports no additional male genitourinary complaints Musculoskeletal: Reports no additional musculoskeletal complaints Skin/Breast: Reports system reviewed and no additional complaints, except as docu Reports behavioral changes, Reports confusion and Reports weakness Psychiatric: Reports no additional psychiatric complaints, Reports abnormal sleep pattern, Reports anxiety, Reports behavioral changes, Reports confusion, Reports depression (denies), Reports difficulty concentrating and Reports other (anergy) Endocrine: Reports no additional endocrine complaints and Reports fatigue Hematologic/Lymphatic: Reports no additional hematologic/lymphatic complaints Allergic/Immunologic: Reports no additional allergic/immunologic complaints Mental Status Exam Mental Status Exam Narrative: Appearance: thin, casually groomed with cap; scruffy gill, mildly malodorous Behavior: calm, cooperative Psychomotor: no retardation or agitation noted Speech: clear, mildly slowed rate/rhythm/ soft spoken TP: linear, goal oriented TC: dealing with anxiety Mood: good Affect:guarded SI:denies HI:denies AH/VH:denies Delusions:no paranoid delusions expressed Insight/judgment:impaired x 2 Memory/cog: alert, significant impairment in different aspects based on MOCA 03/03 most difficulty with visuo spatial, attention, recall, language fluency. Repeat MOCA on 09/29 04/02, similar pattern of impairments, slight improvement in orientation. Diagnostics Vital Signs (24Hr): Vital Signs - 24 hr 10/03/20 18:00 10/04/20 06:45 05/03/21 16:42 Temperature 97.7 F 98.2 F 98.1 F Pulse Rate 101 H 96 117 H Respiratory Rate 16 Blood Pressure 120/62 147/101 H 104/61 Pulse Oximetry 97 Body Mass Index 19.0 Labs Results: 09/03/20 04:25 09/14/20 14:07 Imaging Radiology Impressions: ITS Impressions Head CT 09/03/20 03:56 IMPRESSION: No evidence for acute intracranial injury. Automated exposure control (Care Dose) Adjustment of the mA and/or kv according to patient size (this includes techniques or standardized protocols for targeted exams where dose is matched to indication / reason for exam; i.e. extremities or head). Brain MRI 09/20/20 10:13 IMPRESSION: 1. No acute intracranial abnormalities. 2. Mild underlying microangiopathy and generalized cerebral volume loss. Abdomen MRI 09/29/20 14:15 IMPRESSION: Limited study due to lack of IV contrast and motion. Status post left nephrectomy. Likely simple cysts in the right kidney. No lymphadenopathy. No mass in the left nephrectomy bed. Medications Medications Current Medications Generic Name Dose Route Start Last Admin Trade Name Freq PRN Reason Stop Dose Admin Acetaminophen 650 mg 09/08/20 20:02 09/19/20 18:05 Acetaminophen 325 Mg Tablet PO 650 mg Q6H PRN Administration Headache/Pain Mild Scale (1-3) Al Hydroxide/Mg Hydroxide 30 ml 09/08/20 20:02 09/25/20 16:02 Magnesium Hydrox/Alum Hydrox 30 Ml Oral.Susp PO 30 ml Q6H PRN Administration Heartburn/Nausea Dorzolamide HCl 1 drop 09/11/20 15:00 10/04/20 15:03 Dorzolamide Hcl 2 % Ophth Catina 10 Ml Drpbtl EYE-RIGHT Not Given TID [facility] Hydroxyzine HCl 25 mg 09/08/20 20:02 09/21/20 00:50 Hydroxyzine Hcl 25 Mg Tablet PO 25 mg BEDTIME PRN Administration Anxiety Magnesium Hydroxide 30 ml 09/08/20 20:02 09/27/20 13:09 Milk Of Magnesia 30 Ml Oral.Susp PO 30 ml DAILY PRN Administration Constipation Patient Own 1 each 09/11/20 21:00 10/04/20 08:15 Medication (Combigan EYE-BOTH Not Given Eye Drops) BID [facility] Pharmacy Consult 1 each 09/03/20 09:51 Consult Rx Perform Med Rec MISCELLANE ONCE PRN Consult order Risperidone 1 mg 09/17/20 09:00 10/04/20 08:14 Risperidone 1 Mg Tablet PO 1 mg DAILY JOSE RAFAEL Administration Risperidone 2 mg 09/16/20 21:00 10/03/20 21:04 Risperidone 2 Mg Tablet PO 2 mg BEDTIME JOSE RAFAEL Administration Trazodone HCl 25 mg 09/16/20 21:00 10/03/20 21:04 Trazodone Hcl 25 Mg Halftab PO 25 mg BEDTIME JOSE RAFAEL Administration Venlafaxine HCl 75 mg 10/01/20 09:00 10/04/20 08:14 Venlafaxine Hcl Er 75 Mg Cap.Er.24h PO 75 mg DAILY JOSE RAFAEL Administration Allergies Allergies Allergy/AdvReac Type Severity Reaction Status Date / Time No Known Allergies Allergy Verified 09/03/20 03:47 Assessment & Plan Assessment & Plan (1) Major depression with psychotic features: Status: Acute Code(s): F32.3 - Major depressive disorder, single episode, severe with psychotic features Assessment and Plan: F/P no change since yesterday; stabilizing; staff and pt report improved symptoms 1. continue venlafaxine to 75mg po daily 2. continue risperidone 1mg po daily and 2mg po qhs (2) Dementia: Status: Acute Code(s): F03.90 - Unspecified dementia without behavioral disturbance Assessment and Plan: consider aricept Greater than 50% of the session was spent on counseling and/or coordination of care Reason for contiued inpatient stay Substantial Risk for: inability to function
[2020-10-04] MEDS: risperiDONE 2 MG TABLET PO (20:41)
[2020-10-04] MEDS: traZODone HCL 25 MG HALFTAB PO (20:41)
[2020-10-05 06:00] VITALS: BP 132/82; PULSE 93; RESP 18; TEMP 36.1; O2SAT 96
[2020-10-05] MEDS: risperiDONE 1 MG TABLET PO (08:38)
[2020-10-05] MEDS: Venlafaxine HCl ER 75 MG CAP.ER.24H PO (08:38)
--- NOTE | 2020-10-05 09:22 | P.PNPSI_ITS ---
Subjective Subjective Date of Service: 10/05/20 Reason For Visit: Depression with psychosis Interim History: Pt reports mood is good. He reports he is eating and sleeping well. He has been visible in the unit, minimally interactive with peers but more so than before. He presents as less guarded and suspicious. He reports having slightly more energy. He does not endorse overt paranoid delusions. He denies SI/HI. No behavioral concerns. He continues to need reminders for meals, showers . his room is marked with his name as he gets confused. Review of Systems Review of Systems No recent cold or flu-like illness. Yes all other systems are reviewed and are negative (pt denies) and Unobtainable due to mental status (asleep ) Constitutional: Reports no additional constitutional complaints, Reports fa tigue, Reports lethargy, Reports poor appetite, Reports weakness and Reports weight loss Eyes: Reports no additional eye complaints Reports system reviewed and no additional complaints, except as documented Cardiovascular: Reports no additional cardiovascular complaints Respiratory: Reports no additional respiratory complaints Gastrointestinal: Reports no additional gastrointestinal complaints and Reports constipation Genitourinary: Reports no additional male genitourinary complaints Musculoskeletal: Reports no additional musculoskeletal complaints Skin/Breast: Reports system reviewed and no additional complaints, except as docu Reports behavioral changes, Reports confusion and Reports weakness Psychiatric: Reports no additional psychiatric complaints, Reports abnormal sleep pattern, Reports anxiety, Reports behavioral changes, Reports confusion, Reports depression (denies), Reports difficulty concentrating and Reports other (anergy) Endocrine: Reports no additional endocrine complaints and Reports fatigue Hematologic/Lymphatic: Reports no additional hematologic/lymphatic complaints Allergic/Immunologic: Reports no additional allergic/immunologic complaints Mental Status Exam Mental Status Exam Narrative: Appearance: thin, casually groomed with cap; scruffy gill, mildly malodorous Behavior: calm, cooperative Psychomotor: no retardation or agitation noted Speech: clear, mildly slowed rate/rhythm/ soft spoken TP: linear, goal oriented TC: dealing with anxiety Mood: good Affect:guarded SI:denies HI:denies AH/VH:denies Delusions:no paranoid delusions expressed Insight/judgment:impaired x 2 Memory/cog: alert, significant impairment in different aspects based on MOCA 03/03 most difficulty with visuo spatial, attention, recall, language fluency. Repeat MOCA on 09/29 04/02, similar pattern of impairments, slight improvement in orientation. Diagnostics Vital Signs (24Hr): Vital Signs - 24 hr 10/05/20 06:00 Temperature 97.0 F Pulse Rate 93 Respiratory Rate 18 Blood Pressure 132/82 Pulse Oximetry 96 Body Mass Index 19.0 Labs Results: 09/03/20 04:25 09/14/20 14:07 Imaging Radiology Impressions: ITS Impressions Head CT 09/03/20 03:56 IMPRESSION: No evidence for acute intracranial injury. Automated exposure control (Care Dose) Adjustment of the mA and/or kv according to patient size (this includes techniques or standardized protocols for targeted exams where dose is matched to indication / reason for exam; i.e. extremities or head). Brain MRI 09/20/20 10:13 IMPRESSION: 1. No acute intracranial abnormalities. 2. Mild underlying microangiopathy and generalized cerebral volume loss. Abdomen MRI 09/29/20 14:15 IMPRESSION: Limited study due to lack of IV contrast and motion. Status post left nephrectomy. Likely simple cysts in the right kidney. No lymphadenopathy. No mass in the left nephrectomy bed. Medications Medications Current Medications Generic Name Dose Route Start Last Admin Trade Name Freq PRN Reason Stop Dose Admin Acetaminophen 650 mg 09/08/20 20:02 10/05/20 11:09 Acetaminophen 325 Mg Tablet PO 650 mg Q6H PRN Administration Headache/Pain Mild Scale (1-3) Al Hydroxide/Mg Hydroxide 30 ml 09/08/20 20:02 09/25/20 16:02 Magnesium Hydrox/Alum Hydrox 30 Ml Oral.Susp PO 30 ml Q6H PRN Administration Heartburn/Nausea Dorzolamide HCl 1 drop 09/11/20 15:00 10/05/20 16:43 Dorzolamide Hcl 2 % Ophth Catina 10 Ml Drpbtl EYE-RIGHT Not Given TID [facility] Hydroxyzine HCl 25 mg 09/08/20 20:02 09/21/20 00:50 Hydroxyzine Hcl 25 Mg Tablet PO 25 mg BEDTIME PRN Administration Anxiety Magnesium Hydroxide 30 ml 09/08/20 20:02 09/27/20 13:09 Milk Of Magnesia 30 Ml Oral.Susp PO 30 ml DAILY PRN Administration Constipation Patient Own 1 each 09/11/20 21:00 10/05/20 08:59 Medication (Combigan EYE-BOTH Not Given Eye Drops) BID [facility] Pharmacy Consult 1 each 09/03/20 09:51 Consult Rx Perform Med Rec MISCELLANE ONCE PRN Consult order Risperidone 1 mg 09/17/20 09:00 10/05/20 08:38 Risperidone 1 Mg Tablet PO 1 mg DAILY JOSE RAFAEL Administration Risperidone 2 mg 09/16/20 21:00 10/04/20 20:41 Risperidone 2 Mg Tablet PO 2 mg BEDTIME JOSE RAFAEL Administration Trazodone HCl 25 mg 09/16/20 21:00 10/04/20 20:41 Trazodone Hcl 25 Mg Halftab PO 25 mg BEDTIME JOSE RAFAEL Administration Venlafaxine HCl 75 mg 10/01/20 09:00 10/05/20 08:38 Venlafaxine Hcl Er 75 Mg Cap.Er.24h PO 75 mg DAILY JOSE RAFAEL Administration Allergies Allergies Allergy/AdvReac Type Severity Reaction Status Date / Time No Known Allergies Allergy Verified 09/03/20 03:47 Assessment & Plan Assessment & Plan (1) Major depression with psychotic features: Status: Acute Code(s): F32.3 - Major depressive disorder, single episode, severe with psychotic features Assessment and Plan: F/P no change since yesterday; stabilizing; staff and pt report improved symptoms 1. continue venlafaxine to 75mg po daily 2. continue risperidone 1mg po daily and 2mg po qhs (2) Dementia: Status: Acute Code(s): F03.90 - Unspecified dementia without behavioral disturbance Assessment and Plan: consider aricept Greater than 50% of the session was spent on counseling and/or coordination of care Reason for contiued inpatient stay Substantial Risk for: inability to function
[2020-10-05] MEDS: Acetaminophen 325 MG TABLET 650 MG PO (11:09)
[2020-10-05] MEDS: risperiDONE 2 MG TABLET PO (21:30)
[2020-10-05] MEDS: traZODone HCL 25 MG HALFTAB PO (21:30)
[2020-10-05] MEDS: Dorzolamide HCl 2 % Ophth Sol 10 ML DRPBTL 1 DROP EYE-RIGHT (21:39)
[2020-10-05 21:40] VITALS: BP 121/93; PULSE 113; RESP 16; TEMP 37.2; O2SAT 96
[2020-10-06 06:00] VITALS: BP 132/82; PULSE 106; RESP 18; TEMP 36.6; O2SAT 96
[2020-10-06] MEDS: risperiDONE 1 MG TABLET PO (09:37)
[2020-10-06] MEDS: Venlafaxine HCl ER 75 MG CAP.ER.24H PO (09:38)
--- NOTE | 2020-10-06 11:19 | MHC.CLN ---
PT REFUSING ENSURE PER [facility] WILL D/C AND MONITOR PO INTAKE CLOSELY
--- NOTE | 2020-10-06 15:03 | HO.PSYCHPN ---
Subjective Subjective Date of Service: 10/07/20 Reason For Visit: Depression with psychosis Interim History: Pt intermittently visible in unit, social with select peers but does not attend assigned groups. He reports mood as good. He reports sleeping and eating well. He does not think he is being followed. He denies SI/HI. He also denies hearing voices or AH. He takes eye drops intermittently for unclear reasons, it appears he gets confused and thinks they may be the wrong ones. He takes all other medications as prescribed. Review of Systems Review of Systems No recent cold or flu-like illness. Yes all other systems are reviewed and are negative (pt denies) and Unobtainable due to mental status (asleep ) Constitutional: Reports no additional constitutional complaints, Reports fatigue, Reports lethargy, Reports poor appetite, Reports weakness and Reports weight loss Eyes: Reports no additional eye complaints Reports system reviewed and no additional complaints, except as documented Cardiovascular: Reports no additional cardiovascular complaints Respiratory: Reports no additional respiratory complaints Gastrointestinal: Reports no additional gastrointestinal complaints and Reports constipation Genitourinary: Reports no additional male genitourinary complaints Musculoskeletal: Reports no additional musculoskeletal complaints Skin/Breast: Reports system reviewed and no additional complaints, except as docu Reports behavioral changes, Reports confusion and Reports weakness Psychiatric: Reports behavioral changes and Reports confusion Endocrine: Reports no additional endocrine complaints and Reports fatigue Hematologic/Lymphatic: Reports no additional hematologic/lymphatic complaints Allergic/Immunologic: Reports no additional allergic/immunologic complaints Mental Status Exam Mental Status Exam Narrative: Appearance: thin, casually groomed with cap; scruffy gill, mildly malodorous Behavior: calm, cooperative Psychomotor: no retardation or agitation noted Speech: clear, mildly slowed rate/rhythm/ soft spoken TP: linear, goal oriented TC: dealing with anxiety Mood: good Affect:guarded SI:denies HI:denies AH/VH:denies Delusions:no paranoid delusions expressed Insight/judgment:impaired x 2 Memory/cog: alert, significant impairment in different aspects based on MOCA 03/03 most difficulty with visuo spatial, attention, recall, language fluency. Repeat MOCA on 09/29 04/02, similar pattern of impairments, slight improvement in orientation. Diagnostics Vital Signs (24Hr): Vital Signs - 24 hr 10/06/20 19:00 10/07/20 07:15 Temperature 99.1 F 98.4 F Pulse Rate 105 H 92 Respiratory Rate 18 16 Blood Pressure 120/81 128/85 Pulse Oximetry 96 96 Body Mass Index 19.0 Labs Results: 09/03/20 04:25 09/14/20 14:07 Imaging Radiology Impressions: ITS Impressions Head CT 09/03/20 03:56 IMPRESSION: No evidence for acute intracranial injury. Automated exposure control (Care Dose) Adjustment of the mA and/or kv according to patient size (this includes techniques or standardized protocols for targeted exams where dose is matched to indication / reason for exam; i.e. extremities or head). Brain MRI 09/20/20 10:13 IMPRESSION: 1. No acute intracranial abnormalities. 2. Mild underlying microangiopathy and generalized cerebral volume loss. Abdomen MRI 09/29/20 14:15 IMPRESSION: Limited study due to lack of IV contrast and motion. Status post left nephrectomy. Likely simple cysts in the right kidney. No lymphadenopathy. No mass in the left nephrectomy bed. Medications Medications Current Medications Generic Name Dose Route Start Last Admin Trade Name Freq PRN Reason Stop Dose Admin Acetaminophen 650 mg 09/08/20 20:02 10/05/20 11:09 Acetaminophen 325 Mg Tablet PO 650 mg Q6H PRN Administration Headache/Pain Mild Scale (1-3) Al Hydroxide/Mg Hydroxide 30 ml 09/08/20 20:02 09/25/20 16:02 Magnesium Hydrox/Alum Hydrox 30 Ml Oral.Susp PO 30 ml Q6H PRN Administration Heartburn/Nausea Dorzolamide HCl 1 drop 09/11/20 15:00 10/07/20 10:28 Dorzolamide Hcl 2 % Ophth Catina 10 Ml Drpbtl EYE-RIGHT Not Given TID [facility] Hydroxyzine HCl 25 mg 09/08/20 20:02 09/21/20 00:50 Hydroxyzine Hcl 25 Mg Tablet PO 25 mg BEDTIME PRN Administration Anxiety Magnesium Hydroxide 30 ml 09/08/20 20:02 09/27/20 13:09 Milk Of Magnesia 30 Ml Oral.Susp PO 30 ml DAILY PRN Administration Constipation Patient Own 1 each 09/11/20 21:00 10/07/20 10:27 Medication (Combigan EYE-BOTH Not Given Eye Drops) BID [facility] Pharmacy Consult 1 each 09/03/20 09:51 Consult Rx Perform Med Rec MISCELLANE ONCE PRN Consult order Risperidone 1 mg 09/17/20 09:00 10/07/20 10:18 Risperidone 1 Mg Tablet PO 1 mg DAILY JOSE RAFAEL Administration Risperidone 2 mg 09/16/20 21:00 10/06/20 20:58 Risperidone 2 Mg Tablet PO 2 mg BEDTIME JOSE RAFAEL Administration Trazodone HCl 25 mg 09/16/20 21:00 10/06/20 20:57 Trazodone Hcl 25 Mg Halftab PO 25 mg BEDTIME JOSE RAFAEL Administration Venlafaxine HCl 75 mg 10/01/20 09:00 10/07/20 10:18 Venlafaxine Hcl Er 75 Mg Cap.Er.24h PO 75 mg DAILY JOSE RAFAEL Administration Allergies Allergies Allergy/AdvReac Type Severity Reaction Status Date / Time No Known Allergies Allergy Verified 09/03/20 03:47 Assessment & Plan Assessment & Plan (1) Major depression with psychotic features: Status: Acute Code(s): F32.3 - Major depressive disorder, single episode, severe with psychotic features Assessment and Plan: F/P no change since yesterday; stabilizing; staff and pt report improved symptoms 1. continue venlafaxine to 75mg po daily 2. continue risperidone 1mg po daily and 2mg po qhs (2) Dementia: Status: Acute Code(s): F03.90 - Unspecified dementia without behavioral disturbance Assessment and Plan: Start aricept Greater than 50% of the session was spent on counseling and/or coordination of care Reason for contiued inpatient stay Substantial Risk for: inability to function
[2020-10-06 19:00] VITALS: BP 120/81; PULSE 105; RESP 18; TEMP 37.3; O2SAT 96
[2020-10-06] MEDS: traZODone HCL 25 MG HALFTAB PO (20:57)
[2020-10-06] MEDS: risperiDONE 2 MG TABLET PO (20:58)
[2020-10-07 07:15] VITALS: BP 128/85; PULSE 92; RESP 16; TEMP 36.9; O2SAT 96
[2020-10-07] MEDS: Venlafaxine HCl ER 75 MG CAP.ER.24H PO (10:18)
[2020-10-07] MEDS: risperiDONE 1 MG TABLET PO (10:18)
--- NOTE | 2020-10-07 15:06 | HO.PSYCHPN ---
Subjective Subjective Date of Service: 10/07/20 Reason For Visit: Depression with psychosis Interim History: Pt reports doing well. He reports eating and sleeping well. He does report pain in right ear. He denies SI/HI. He appears less paranoid. His orientation continues to be problematic. He is in agreement that he needs help from daughter to function and manage finances. He continues to need significant encouragement to bathe as he thinks he has done it before. He is visible in the unit. No behavioral concerns. Review of Systems Review of Systems No recent cold or flu-like illness. Yes all other systems are reviewed and are negative (pt denies) and Unobtainable due to mental status (asleep ) Constitutional: Reports no additional constitutional complaints, Reports fatigue, Reports lethargy, Reports poor appetite, Reports weakness and Reports weight loss Eyes: Reports no additional eye complaints Reports system reviewed and no additional complaints, except as documented Cardiovascular: Reports no additional cardiovascular complaints Respiratory: Reports no additional respiratory complaints Gastrointestinal: Reports no additional gastrointestinal complaints and Reports constipation Genitourinary: Reports no additional male genitourinary complaints Musculoskeletal: Reports no additional musculoskeletal complaints Skin/Breast: Reports system reviewed and no additional complaints, except as docu Reports behavioral changes, Reports confusion and Reports weakness Psychiatric: Reports no additional psychiatric complaints, Reports abnormal sleep pattern, Reports anxiety, Reports behavioral changes, Reports confusion, Reports depression (denies), Reports difficulty concentrating and Reports other (anergy) Endocrine: Reports no additional endocrine complaints and Reports fatigue Hematologic/Lymphatic: Reports no additional hematologic/lymphatic complaints Allergic/Immunologic: Reports no additional allergic/immunologic complaints Mental Status Exam Mental Status Exam Narrative: Appearance: thin, casually groomed with cap; scruffy gill, mildly malodorous Behavior: calm, cooperative Psychomotor: no retardation or agitation noted Speech: clear, mildly slowed rate/rhythm/ soft spoken TP: linear, goal oriented TC: dealing with anxiety Mood: good Affect:guarded SI:denies HI:denies AH/VH:denies Delusions:no paranoid delusions expressed Insight/judgment:impaired x 2 Memory/cog: alert, significant impairment in different aspects based on MOCA 03/03 most difficulty with visuo spatial, attention, recall, language fluency. Repeat MOCA on 09/29 04/02, similar pattern of impairments, slight improvement in orientation. Diagnostics Vital Signs (24Hr): Vital Signs - 24 hr 05/05/21 19:00 10/07/20 07:15 Temperature 99.1 F 98.4 F Pulse Rate 105 H 92 Respiratory Rate 18 16 Blood Pressure 120/81 128/85 Pulse Oximetry 96 96 Body Mass Index 19.0 Labs Results: 09/03/20 04:25 09/14/20 14:07 Imaging Radiology Impressions: ITS Impressions Head CT 09/03/20 03:56 IMPRESSION: No evidence for acute intracranial injury. Automated exposure control (Care Dose) Adjustment of the mA and/or kv according to patient size (this includes techniques or standardized protocols for targeted exams where dose is matched to indication / reason for exam; i.e. extremities or head). Brain MRI 09/20/20 10:13 IMPRESSION: 1. No acute intracranial abnormalities. 2. Mild underlying microangiopathy and generalized cerebral volume loss. Abdomen MRI 09/29/20 14:15 IMPRESSION: Limited study due to lack of IV contrast and motion. Status post left nephrectomy. Likely simple cysts in the right kidney. No lymphadenopathy. No mass in the left nephrectomy bed. Medications Medications Current Medications Generic Name Dose Route Start Last Admin Trade Name Freq PRN Reason Stop Dose Admin Acetaminophen 650 mg 09/08/20 20:02 10/05/20 11:09 Acetaminophen 325 Mg Tablet PO 650 mg Q6H PRN Administration Headache/Pain Mild Scale (1-3) Al Hydroxide/Mg Hydroxide 30 ml 09/08/20 20:02 09/25/20 16:02 Magnesium Hydrox/Alum Hydrox 30 Ml Oral.Susp PO 30 ml Q6H PRN Administration Heartburn/Nausea Dorzolamide HCl 1 drop 09/11/20 15:00 10/07/20 10:28 Dorzolamide Hcl 2 % Ophth Catina 10 Ml Drpbtl EYE-RIGHT Not Given TID [facility] Hydroxyzine HCl 25 mg 09/08/20 20:02 09/21/20 00:50 Hydroxyzine Hcl 25 Mg Tablet PO 25 mg BEDTIME PRN Administration Anxiety Magnesium Hydroxide 30 ml 09/08/20 20:02 09/27/20 13:09 Milk Of Magnesia 30 Ml Oral.Susp PO 30 ml DAILY PRN Administration Constipation Patient Own 1 each 09/11/20 21:00 10/07/20 10:27 Medication (Combigan EYE-BOTH Not Given Eye Drops) BID [facility] Pharmacy Consult 1 each 09/03/20 09:51 Consult Rx Perform Med Rec MISCELLANE ONCE PRN Consult order Risperidone 1 mg 09/17/20 09:00 10/07/20 10:18 Risperidone 1 Mg Tablet PO 1 mg DAILY JOSE RAFAEL Administration Risperidone 2 mg 09/16/20 21:00 10/06/20 20:58 Risperidone 2 Mg Tablet PO 2 mg BEDTIME JOSE RAFAEL Administration Trazodone HCl 25 mg 09/16/20 21:00 10/06/20 20:57 Trazodone Hcl 25 Mg Halftab PO 25 mg BEDTIME JOSE RAFAEL Administration Venlafaxine HCl 75 mg 10/01/20 09:00 10/07/20 10:18 Venlafaxine Hcl Er 75 Mg Cap.Er.24h PO 75 mg DAILY JOSE RAFAEL Administration Allergies Allergies Allergy/AdvReac Type Severity Reaction Status Date / Time No Known Allergies Allergy Verified 09/03/20 03:47 Assessment & Plan Assessment & Plan (1) Major depression with psychotic features: Status: Acute Code(s): F32.3 - Major depressive disorder, single episode, severe with psychotic features Assessment and Plan: F/P no change since yesterday; stabilizing; staff and pt report improved symptoms 1. continue venlafaxine to 75mg po daily 2. continue risperidone 1mg po daily and 2mg po qhs (2) Dementia: Status: Acute Code(s): F03.90 - Unspecified dementia without behavioral disturbance Assessment and Plan: Start aricept Greater than 50% of the session was spent on counseling and/or coordination of care Reason for contiued inpatient stay Substantial Risk for: inability to function
[2020-10-07 19:10] VITALS: BP 129/89; PULSE 122; RESP 18; TEMP 36.1; O2SAT 96
--- NOTE | 2020-10-07 20:43 | P.CONIM_ITS ---
History of Present Illness Data of Consult Service Date: 10/07/20 Requesting physician: Olinda Pantoja Primary Care Provider: Unknown Physician HPI Reason for consult: ear pain We were asked to see this patient in consultation for ear pain. Patient is currently admitted to [facility] on the 5th floor for major depression with psychotic features. He apparently complained about a pain and therefore consulted. On my interview of the patient he reports that his ear feels like it is clogged up, symptoms have been going on for multiple months, he denies any pain, no discharge, he reports some ringing in the ears sometimes but not constant, he also has some decreased hearing, feels like he is in an airplane or and on high altitude. He denies any dizziness, no vertigo, denies any fever or chills. He otherwise has no complaints. Review of Systems Review of Systems: Yes all other systems are reviewed and are negative FORMERLY [facility], 1928–1983 Medical History Renal cell carcinoma Surgical History History of kidney surgery Social History Household Members: None Housing: Other Housing Other:: LIVES ALONE Do you presently have visiting nurse or other home services: No Smoking Status: Former smoker Smoked in Last 30 Days: No Second Hand Smoke Exposure: No Use of substances other than those prescribed or required for medical reasons: No Currently Displaying Signs/Symptoms of Drug Intoxication Withdrawal: No Have you been hit, kicked, punched, or otherwise hurt by someone within the past year? If so, by whom?: No Do you feel safe in your current relationship?: No Current Relationship Is there a partner from a previous relationship who is making you feel unsafe now?: No Are you made to feel afraid or neglected: No Advance Directives: No Advance Directives Information Provided: No Do you have thoughts of harming others: None Do you have a plan to hurt others: No Plan Recently lost weight without trying: No How much weight loss: Unsure Eating poorly because of decreased appetite: No Nutrition screen score: 2 Nutrition Risks: No Nutritional Risk Poor oral hygiene: No service: No Current occupational exposures/hazards: No Sexual orientation: Straight/Heterosexual Meds Allergies Allergy/AdvReac Type Severity Reaction Status Date / Time No Known Allergies Allergy Verified 09/03/20 03:47 Active Medications: Current Medications Generic Name Dose Route Start Last Admin Trade Name Rashmi PRN Reason Stop Dose Admin Acetaminophen 650 mg 09/08/20 20:02 10/05/20 11:09 Acetaminophen 325 Mg Tablet PO 650 mg Q6H PRN Administration Headache/Pain Mild Scale (1-3) Al Hydroxide/Mg Hydroxide 30 ml 09/08/20 20:02 09/25/20 16:02 Magnesium Hydrox/Alum Hydrox 30 Ml Oral.Susp PO 30 ml Q6H PRN Administration Heartburn/Nausea Donepezil HCl 5 mg 10/07/20 21:00 Donepezil Hcl 5 Mg Tablet PO BEDTIME JOSE RAFAEL Dorzolamide HCl 1 drop 09/11/20 15:00 10/07/20 16:08 Dorzolamide Hcl 2 % Ophth Catina 10 Ml Drpbtl EYE-RIGHT Not Given TID [facility] Hydroxyzine HCl 25 mg 09/08/20 20:02 09/21/20 00:50 Hydroxyzine Hcl 25 Mg Tablet PO 25 mg BEDTIME PRN Administration Anxiety Magnesium Hydroxide 30 ml 09/08/20 20:02 09/27/20 13:09 Milk Of Magnesia 30 Ml Oral.Susp PO 30 ml DAILY PRN Administration Constipation Patient Own 1 each 09/11/20 21:00 10/07/20 10:27 Medication (Combigan EYE-BOTH Not Given Eye Drops) BID [facility] Pharmacy Consult 1 each 09/03/20 09:51 Consult Rx Perform Med Rec MISCELLANE ONCE PRN Consult order Risperidone 1 mg 09/17/20 09:00 10/07/20 10:18 Risperidone 1 Mg Tablet PO 1 mg DAILY JOSE RAFAEL Administration Risperidone 2 mg 09/16/20 21:00 10/06/20 20:58 Risperidone 2 Mg Tablet PO 2 mg BEDTIME JOSE RAFAEL Administration Trazodone HCl 25 mg 09/16/20 21:00 10/06/20 20:57 Trazodone Hcl 25 Mg Halftab PO 25 mg BEDTIME JOSE RAFAEL Administration Venlafaxine HCl 75 mg 10/01/20 09:00 10/07/20 10:18 Venlafaxine Hcl Er 75 Mg Cap.Er.24h PO 75 mg DAILY JOSE RAFAEL Administration Home Medications Medication Instructions Recorded Confirmed Last Taken Type aspirin-caffeine [Anacin] 1 tab PO Q6H PRN 09/03/20 09/03/20 Unknown History brimonidine-timolol [Combigan] 1 drp OPHTHALMIC (EYE) BID 09/03/20 09/03/20 Unknown History lorazepam 1 tab PO Q8H PRN 09/04/20 09/04/20 Unknown History Physical Exam Vital Signs and Narrative: Vital Signs: Last Vital Signs Temp 98.4 F 10/07/20 07:15 Pulse 92 10/07/20 07:15 Resp 16 10/07/20 07:15 BP 128/85 10/07/20 07:15 Pulse Ox 96 10/07/20 07:15 Body Mass Index 19.0 Const: General: cooperative and no acute distress Orientation/consciousness: patient oriented x3 HENMT: Other: has no ear discharge, no canal erythema, no TM abnormality, no evidence of excess ear wax Ears: hearing grossly normal bilaterally, external ears normal and TM normal on the right Eyes: General: appearance normal, both eyes and all related structures Resp: Effort & Inspection: normal respiratory effort and able to speak in complete sentences Cardio: Rate: regular rate Rhythm: regular rhythm GI: Palpation (GI): Soft to palpation Auscultation: normal bowel sounds Neuro: General: patient oriented x3 Cognition (Neuro): normal cognition Extrem: General: Yes normal to inspection Results Labs CBC and Chem 7: 09/03/20 04:25 09/14/20 14:07 Assessment and Plan (1) Ear discomfort: Status: Acute This is a 70-year-old male with past medical history of dementia, major depression disorder, who we are asked to see in consultation for ear discomfort # right ear discomfort - does not appear to have any sort of evidence of infection, no wax buildup - reports decreased hearing as well as sometimes ringing in the ear - no vertigo, no discharge, no erythema, and no tenderness - recommend follow-up with ENT outpatient - I will hold off on starting him on any medications at this time as there is no evidence of infection. Thank you for this consultation, at this time will sign off unless Please contact our office for any further questions
[2020-10-07] MEDS: traZODone HCL 25 MG HALFTAB PO (22:00)
[2020-10-07] MEDS: Donepezil HCl 5 MG TABLET PO (22:00)
[2020-10-07] MEDS: risperiDONE 2 MG TABLET PO (22:00)
[2020-10-08 06:10] VITALS: BP 110/74; PULSE 91; RESP 16; TEMP 36.9; O2SAT 96
[2020-10-08] MEDS: Venlafaxine HCl ER 75 MG CAP.ER.24H PO (08:12)
[2020-10-08] MEDS: risperiDONE 1 MG TABLET PO (08:12)
--- NOTE | 2020-10-08 13:21 | HO.PSYCHPN ---
Subjective Subjective Date of Service: 10/08/20 Reason For Visit: Depression with psychosis Interim History: Pt states he is feeling okay. He does expressed some frustration related to being in hospital too long. He reports he is sleeping and eating well. He denies SI/HI. He continues to present as confused at times in that he is not sure eye drops are the same he takes at home, despite multiple times of being reassured those are the same. Problems with memory and orientation continue to be evident. He has been mostly in bed. He started aricept last night. No GI side effects so far. Review of Systems Review of Systems No recent cold or flu-like illness. Yes all other systems are reviewed and are negative and Unobtainable due to mental status (asleep ) Constitutional: Reports no additional constitutional complaints, Reports fatigue, Reports lethargy, Reports poor appetite, Reports weakness and Reports weight loss Eyes: Reports no additional eye complaints Reports system reviewed and no additional complaints, except as documented Cardiovascular: Reports no additional cardiovascular complaints Respiratory: Reports no additional respiratory complaints Gastrointestinal: Reports no additional gastrointestinal complaints Genitourinary: Reports no additional male genitourinary complaints Musculoskeletal: Reports no additional musculoskeletal complaints Skin/Breast: Reports system reviewed and no additional complaints, except as docu Reports behavioral changes, Reports confusion and Reports weakness Psychiatric: Reports behavioral changes and Reports confusion Endocrine: Reports no additional endocrine complaints and Reports fatigue Hematologic/Lymphatic: Reports no additional hematologic/lymphatic complaints Allergic/Immunologic: Reports no additional allergic/immunologic complaints Mental Status Exam Mental Status Exam Narrative: Appearance: thin, casually groomed with cap; scruffy gill, mildly malodorous Behavior: calm, cooperative Psychomotor: no retardation or agitation noted Speech: clear, mildly slowed rate/rhythm/ soft spoken TP: linear, goal oriented TC: dealing with anxiety Mood: good Affect:guarded SI:denies HI:denies AH/VH:denies Delusions:no paranoid delusions expressed Insight/judgment:impaired x 2 Memory/cog: alert, significant impairment in different aspects based on MOCA 03/03 most difficulty with visuo spatial, attention, recall, language fluency. Repeat MOCA on 09/29 04/02, similar pattern of impairments, slight improvement in orientation. Diagnostics Vital Signs (24Hr): Vital Signs - 24 hr 10/07/20 19:10 10/08/20 06:10 Temperature 97.0 F 98.5 F Pulse Rate 122 H 91 Respiratory Rate 18 16 Blood Pressure 129/89 110/74 Pulse Oximetry 96 96 Body Mass Index 19.0 Labs Results: 09/03/20 04:25 09/14/20 14:07 Imaging Radiology Impressions: ITS Impressions Head CT 09/03/20 03:56 IMPRESSION: No evidence for acute intracranial injury. Automated exposure control (Care Dose) Adjustment of the mA and/or kv according to patient size (this includes techniques or standardized protocols for targeted exams where dose is matched to indication / reason for exam; i.e. extremities or head). Brain MRI 09/20/20 10:13 IMPRESSION: 1. No acute intracranial abnormalities. 2. Mild underlying microangiopathy and generalized cerebral volume loss. Abdomen MRI 09/29/20 14:15 IMPRESSION: Limited study due to lack of IV contrast and motion. Status post left nephrectomy. Likely simple cysts in the right kidney. No lymphadenopathy. No mass in the left nephrectomy bed. Medications Medications Current Medications Generic Name Dose Route Start Last Admin Trade Name Freq PRN Reason Stop Dose Admin Acetaminophen 650 mg 09/08/20 20:02 10/05/20 11:09 Acetaminophen 325 Mg Tablet PO 650 mg Q6H PRN Administration Headache/Pain Mild Scale (1-3) Al Hydroxide/Mg Hydroxide 30 ml 09/08/20 20:02 09/25/20 16:02 Magnesium Hydrox/Alum Hydrox 30 Ml Oral.Susp PO 30 ml Q6H PRN Administration Heartburn/Nausea Donepezil HCl 5 mg 10/07/20 21:00 10/07/20 22:00 Donepezil Hcl 5 Mg Tablet PO 5 mg BEDTIME JOSE RAFAEL Administration Dorzolamide HCl 1 drop 09/11/20 15:00 10/08/20 08:23 Dorzolamide Hcl 2 % Ophth Catina 10 Ml Drpbtl EYE-RIGHT Not Given TID JOSE RAFAEL Hydroxyzine HCl 25 mg 09/08/20 20:02 09/21/20 00:50 Hydroxyzine Hcl 25 Mg Tablet PO 25 mg BEDTIME PRN Administration Anxiety Magnesium Hydroxide 30 ml 09/08/20 20:02 09/27/20 13:09 Milk Of Magnesia 30 Ml Oral.Susp PO 30 ml DAILY PRN Administration Constipation Patient Own 1 each 09/11/20 21:00 10/08/20 08:23 Medication (Combigan EYE-BOTH Not Given Eye Drops) BID [facility] Pharmacy Consult 1 each 09/03/20 09:51 Consult Rx Perform Med Rec MISCELLANE ONCE PRN Consult order Risperidone 1 mg 09/17/20 09:00 10/08/20 08:12 Risperidone 1 Mg Tablet PO 1 mg DAILY JOSE RAFAEL Administration Risperidone 2 mg 09/16/20 21:00 10/07/20 22:00 Risperidone 2 Mg Tablet PO 2 mg BEDTIME JOSE RAFAEL Administration Trazodone HCl 25 mg 09/16/20 21:00 10/07/20 22:00 Trazodone Hcl 25 Mg Halftab PO 25 mg BEDTIME JOSE RAFAEL Administration Venlafaxine HCl 75 mg 10/01/20 09:00 10/08/20 08:12 Venlafaxine Hcl Er 75 Mg Cap.Er.24h PO 75 mg DAILY JOSE RAFAEL Administration Allergies Allergies Allergy/AdvReac Type Severity Reaction Status Date / Time No Known Allergies Allergy Verified 09/03/20 03:47 Assessment & Plan Assessment & Plan (1) Major depression with psychotic features: Status: Acute Code(s): F32.3 - Major depressive disorder, single episode, severe with psychotic features (2) Dementia: Status: Acute Code(s): F03.90 - Unspecified dementia without behavioral disturbance Assessment and Plan: 1. Most likely of mixed etiology Vascular and AD. 2. Continue Aricept 5mg po qhs 3. continue risperidone 4. continue effexor. Greater than 50% of the session was spent on counseling and/or coordination of care Reason for contiued inpatient stay Substantial Risk for: inability to function
[2020-10-08 17:22] VITALS: BP 140/87; PULSE 103; RESP 16; TEMP 37.1; O2SAT 95
[2020-10-08] MEDS: risperiDONE 2 MG TABLET PO (20:56)
[2020-10-08] MEDS: Donepezil HCl 5 MG TABLET PO (20:56)
[2020-10-08] MEDS: traZODone HCL 25 MG HALFTAB PO (20:56)
[2020-10-09 06:00] VITALS: BP 137/86; PULSE 100; RESP 16; TEMP 36.3; O2SAT 96
[2020-10-09] MEDS: risperiDONE 1 MG TABLET PO (08:34)
[2020-10-09] MEDS: Venlafaxine HCl ER 75 MG CAP.ER.24H PO (08:34)
--- NOTE | 2020-10-09 08:48 | P.PNPSI_ITS ---
Subjective Subjective Date of Service: 10/09/20 Reason For Visit: Depression with psychosis Interim History: Chart reviewed; case discussed with team. Vitals reviewed: WNL Pt lying in bed, awake, dressed on approach. Reports he's OK. Pt reports he's sleeping well and has no complaints. Pt has been refusing Glaucoma eye drops due to what seems to be some confusion. Customer Service Cashier and nurse educated pt on risks of not taking drops, which he understood and eventually was convinced to take them, allowing nurse to administer. staff reports pt continues refusing to shower, change or wash his cloths. remains isolated Mental Status Exam Mental Status Exam Narrative: Appearance: thin, casually groomed with cap; scruffy gill, mildly malodorous Behavior: calm Psychomotor: no retardation or agitation noted Speech: clear, mildly slowed rate/rhythm/ soft spoken TP: linear, goal oriented TC: dealing with anxiety Mood: ok Affect:mildly guarded SI:denies AH/VH:denies Delusions:no paranoid delusions expressed Insight/judgment:impaired Memory/cog: alert, significant impairment in different aspects based on MOCA 03/03 most difficulty with visuo spatial, attention, recall, language fluency. Re peat MOCA on 09/29 04/02, similar pattern of impairments, slight improvement in orientation. Diagnostics Vital Signs (24Hr): Vital Signs - 24 hr 10/08/20 17:22 10/09/20 06:00 Temperature 98.8 F 97.4 F Pulse Rate 103 H 100 Respiratory Rate 16 16 Blood Pressure 140/87 H 137/86 Pulse Oximetry 95 96 Body Mass Index 19.0 Labs Results: 09/03/20 04:25 09/14/20 14:07 Imaging Radiology Impressions: ITS Impressions Head CT 09/03/20 03:56 IMPRESSION: No evidence for acute intracranial injury. Automated exposure control (Care Dose) Adjustment of the mA and/or kv according to patient size (this includes techniques or standardized protocols for targeted exams where dose is matched to indication / reason for exam; i.e. extremities or head). Brain MRI 09/20/20 10:13 IMPRESSION: 1. No acute intracranial abnormalities. 2. Mild underlying microangiopathy and generalized cerebral volume loss. Abdomen MRI 09/29/20 14:15 IMPRESSION: Limited study due to lack of IV contrast and motion. Status post left nephrectomy. Likely simple cysts in the right kidney. No lymphadenopathy. No mass in the left nephrectomy bed. Medications Medications Current Medications Generic Name Dose Route Start Last Admin Trade Name Freq PRN Reason Stop Dose Admin Acetaminophen 650 mg 09/08/20 20:02 10/05/20 11:09 Acetaminophen 325 Mg Tablet PO 650 mg Q6H PRN Administration Headache/Pain Mild Scale (1-3) Al Hydroxide/Mg Hydroxide 30 ml 09/08/20 20:02 09/25/20 16:02 Magnesium Hydrox/Alum Hydrox 30 Ml Oral.Susp PO 30 ml Q6H PRN Administration Heartburn/Nausea Donepezil HCl 5 mg 10/07/20 21:00 10/08/20 20:56 Donepezil Hcl 5 Mg Tablet PO 5 mg BEDTIME JOSE RAFAEL Administration Dorzolamide HCl 1 drop 09/11/20 15:00 10/09/20 08:39 Dorzolamide Hcl 2 % Ophth Catina 10 Ml Drpbtl EYE-RIGHT Not Given TID [facility] Hydroxyzine HCl 25 mg 09/08/20 20:02 09/21/20 00:50 Hydroxyzine Hcl 25 Mg Tablet PO 25 mg BEDTIME PRN Administration Anxiety Magnesium Hydroxide 30 ml 09/08/20 20:02 09/27/20 13:09 Milk Of Magnesia 30 Ml Oral.Susp PO 30 ml DAILY PRN Administration Constipation Patient Own 1 each 09/11/20 21:00 10/09/20 08:39 Medication (Combigan EYE-BOTH Not Given Eye Drops) BID [facility] Pharmacy Consult 1 each 09/03/20 09:51 Consult Rx Perform Med Rec MISCELLANE ONCE PRN Consult order Risperidone 1 mg 09/17/20 09:00 10/09/20 08:34 Risperidone 1 Mg Tablet PO 1 mg DAILY JOSE RAFAEL Administration Risperidone 2 mg 09/16/20 21:00 10/08/20 20:56 Risperidone 2 Mg Tablet PO 2 mg BEDTIME JOSE RAFAEL Administration Trazodone HCl 25 mg 09/16/20 21:00 10/08/20 20:56 Trazodone Hcl 25 Mg Halftab PO 25 mg BEDTIME JOSE RAFAEL Administration Venlafaxine HCl 75 mg 10/01/20 09:00 10/09/20 08:34 Venlafaxine Hcl Er 75 Mg Cap.Er.24h PO 75 mg DAILY JOSE RAFAEL Administration Allergies Allergies Allergy/AdvReac Type Severity Reaction Status Date / Time No Known Allergies Allergy Verified 09/03/20 03:47 Assessment & Plan Assessment & Plan (1) Major depression with psychotic features: Status: Acute Code(s): F32.3 - Major depressive disorder, single episode, severe with psychotic features (2) Dementia: Status: Acute Code(s): F03.90 - Unspecified dementia without behavioral disturbance Assessment and Plan: F/P pt stable; remains depressed and with some confusion took Glaucoma eye drops after education and with much encouragement Might consider if patient has capacity to refuse glaucoma eye drops given that refusal risks blindness; will defer to primary team 1. Most likely of mixed etiology Vascular and AD. 2. Continue Aricept 5mg po qhs 3. continue risperidone 4. continue effexor. Greater than 50% of the session was spent on counseling and/or coordination of care Reason for contiued inpatient stay Substantial Risk for: inability to function
[2020-10-09] MEDS: Dorzolamide HCl 2 % Ophth Sol 10 ML DRPBTL 1 DROP EYE-RIGHT (09:25)
[2020-10-09 18:00] VITALS: BP 125/76; PULSE 97; RESP 16; TEMP 36.7; O2SAT 98
[2020-10-09 18:36] VITALS: BMI 18.7
[2020-10-09] MEDS: Donepezil HCl 5 MG TABLET PO (21:23)
[2020-10-09] MEDS: risperiDONE 2 MG TABLET PO (21:23)
[2020-10-09] MEDS: traZODone HCL 25 MG HALFTAB PO (21:23)
[2020-10-10 06:00] VITALS: BP 115/84; PULSE 104; RESP 18; TEMP 36.4; O2SAT 95
[2020-10-10] MEDS: Venlafaxine HCl ER 75 MG CAP.ER.24H PO (08:10)
[2020-10-10] MEDS: risperiDONE 1 MG TABLET PO (08:10)
--- NOTE | 2020-10-10 10:58 | HO.PSYCHPN ---
Subjective Subjective Date of Service: 10/10/20 Reason For Visit: Depression with psychosis Interim History: Chart reviewed; case discussed with team. Vitals reviewed: mildly tachycardiac pt resting in bed with eyes open; he says he's good. However he says glaucoma drops yesterday made his eyes burn; they are better now but uncomfortable sensation lingers. He does not want to keep taking drops, though he seems to understand they are important to prevent blindness. Binder Layer again explained the need for tx and that medical consult would be ordered to assess these particular eye drops and see what options are available. Pt agreed with plan. staff reports pt refuses to shower, change or wash his clothes. Medication Compliance: Intermittent Side effects from medications: Yes (see above) Attending Groups: No Mental Status Exam Mental Status Exam Narrative: Appearance: thin, casually groomed with cap; scruffy gill, malodorous Behavior: calm Psychomotor: some retardation noted Speech: clear, mildly slowed rate/rhythm/ soft spoken TP: linear, goal oriented TC: dealing with anxiety Mood: good Affect:mildly guarded SI:denies AH/VH:denies Delusions:no paranoid delusions expressed Insight/judgment:impaired Memory/cog: alert, significant impairment in different aspects based on MOCA 03/03 most difficulty with visuo spatial, attention, recall, language fluency. Repeat MOCA on 09/29 04/02, similar pattern of impairments, slight improvement in orientation. Diagnostics Vital Signs (24Hr): Vital Signs - 24 hr 10/09/20 18:00 10/10/20 06:00 Temperature 98.0 F 97.5 F Pulse Rate 97 104 H Respiratory Rate 16 18 Blood Pressure 125/76 115/84 Pulse Oximetry 98 95 Body Mass Index 18.7 Labs Results: 09/03/20 04:25 09/14/20 14:07 Imaging Radiology Impressions: ITS Impressions Head CT 09/03/20 03:56 IMPRESSION: No evidence for acute intracranial injury. Automated exposure control (Care Dose) Adjustment of the mA and/or kv according to patient size (this includes techniques or standardized protocols for targeted exams where dose is matched to indication / reason for exam; i.e. extremities or head). Brain MRI 09/20/20 10:13 IMPRESSION: 1. No acute intracranial abnormalities. 2. Mild underlying microangiopathy and generalized cerebral volume loss. Abdomen MRI 09/29/20 14:15 IMPRESSION: Limited study due to lack of IV contrast and motion. Status post left nephrectomy. Likely simple cysts in the right kidney. No lymphadenopathy. No mass in the left nephrectomy bed. Medications Medications Current Medications Generic Name Dose Route Start Last Admin Trade Name Freq PRN Reason Stop Dose Admin Acetaminophen 650 mg 09/08/20 20:02 10/05/20 11:09 Acetaminophen 325 Mg Tablet PO 650 mg Q6H PRN Administration Headache/Pain Mild Scale (1-3) Al Hydroxide/Mg Hydroxide 30 ml 09/08/20 20:02 09/25/20 16:02 Magnesium Hydrox/Alum Hydrox 30 Ml Oral.Susp PO 30 ml Q6H PRN Administration Heartburn/Nausea Donepezil HCl 5 mg 10/07/20 21:00 10/09/20 21:23 Donepezil Hcl 5 Mg Tablet PO 5 mg BEDTIME JOSE RAFAEL Administration Dorzolamide HCl 1 drop 09/11/20 15:00 10/10/20 08:08 Dorzolamide Hcl 2 % Ophth Catina 10 Ml Drpbtl EYE-RIGHT Not Given TID JOSE RAFAEL Hydroxyzine HCl 25 mg 09/08/20 20:02 09/21/20 00:50 Hydroxyzine Hcl 25 Mg Tablet PO 25 mg BEDTIME PRN Administration Anxiety Magnesium Hydroxide 30 ml 09/08/20 20:02 09/27/20 13:09 Milk Of Magnesia 30 Ml Oral.Susp PO 30 ml DAILY PRN Administration Constipation Patient Own 1 each 09/11/20 21:00 10/10/20 08:09 Medication (Combigan EYE-BOTH Not Given Eye Drops) BID [facility] Pharmacy Consult 1 each 09/03/20 09:51 Consult Rx Perform Med Rec MISCELLANE ONCE PRN Consult order Risperidone 1 mg 09/17/20 09:00 10/10/20 08:10 Risperidone 1 Mg Tablet PO 1 mg DAILY JOSE RAFAEL Administration Risperidone 2 mg 09/16/20 21:00 10/09/20 21:23 Risperidone 2 Mg Tablet PO 2 mg BEDTIME JOSE RAFAEL Administration Trazodone HCl 25 mg 09/16/20 21:00 10/09/20 21:23 Trazodone Hcl 25 Mg Halftab PO 25 mg BEDTIME JOSE RAFAEL Administration Venlafaxine HCl 75 mg 10/01/20 09:00 10/10/20 08:10 Venlafaxine Hcl Er 75 Mg Cap.Er.24h PO 75 mg DAILY JOSE RAFAEL Administration Allergies Allergies Allergy/AdvReac Type Severity Reaction Status Date / Time No Known Allergies Allergy Verified 09/03/20 03:47 Assessment & Plan Assessment & Plan (1) Major depression with psychotic features: Status: Acute Code(s): F32.3 - Major depressive disorder, single episode, severe with psychotic features (2) Dementia: Status: Acute Code(s): F03.90 - Unspecified dementia without behavioral disturbance Assessment and Plan: F/P -pt stable; remains depressed and with some confusion -today refused Glaucoma eye drops (took them yesterday after much encouragement) saying drops cause burning sensation in his eyes -pt says he does not want to go blind, and knows drops are to prevent blindness/tx glaucoma, however he continues to refuse them and is not able to discuss how to proceed about resolving issue. -Might consider if patient has capacity to refuse glaucoma eye drops given that refusal risks blindness; will defer to primary team 1. Most likely of mixed etiology Vascular and AD. 2. Continue Aricept 5mg po qhs 3. continue risperidone 4. continue effexor. Greater than 50% of the session was spent on counseling and/or coordination of care Reason for contiued inpatient stay Substantial Risk for: inability to function
[2020-10-10 18:00] VITALS: BP 126/88; PULSE 97; RESP 16; TEMP 36.9; O2SAT 96
[2020-10-10] MEDS: traZODone HCL 25 MG HALFTAB PO (22:14)
[2020-10-10] MEDS: risperiDONE 2 MG TABLET PO (22:14)
[2020-10-10] MEDS: Donepezil HCl 5 MG TABLET PO (22:14)
[2020-10-10] MEDS: Dorzolamide HCl 2 % Ophth Sol 10 ML DRPBTL 1 DROP EYE-RIGHT (22:18)
[2020-10-11 06:35] VITALS: BP 127/83; PULSE 90; RESP 16; TEMP 36.3; O2SAT 96
[2020-10-11] MEDS: Venlafaxine HCl ER 75 MG CAP.ER.24H PO (08:48)
[2020-10-11] MEDS: Dorzolamide HCl 2 % Ophth Sol 10 ML DRPBTL 1 DROP EYE-RIGHT (08:49)
[2020-10-11] MEDS: risperiDONE 1 MG TABLET PO (08:49)
--- NOTE | 2020-10-11 14:37 | P.PNPSI_ITS ---
Subjective Subjective Date of Service: 10/11/20 Reason For Visit: Depression with psychosis Subjective Notes: Conditional Voluntary Interim History: Pt reports sleeping and eating well. He reports feeling tired at times. He also expresses some frustration about being in hospital and hoping placement will be arranged soon. He denies VH/AH. He continues to need sign ificant encouragement to complete ADLs and still at times refuses to take bath at times because he thinks he had one. He denies SI/HI. He declines eye drops at times despite being informed of need and potential complications when he declines them, including blindness. No behavioral concerns. Medication Compliance: Intermittent Side effects from medications: No Attending Groups: No Review of Systems Review of Systems No recent cold or flu-like illness. Yes all other systems are reviewed and are negative Constitutional: Reports no additional constitutional complaints, Reports fatigue, Reports lethargy, Reports poor appetite, Reports weakness and Reports weight loss Eyes: Reports no additional eye complaints Reports system reviewed and no additional complaints, except as documented Cardiovascular: Reports no additional cardiovascular complaints Respiratory: Reports no additional respiratory complaints Gastrointestinal: Reports no additional gastrointestinal complaints and Reports constipation Genitourinary: Reports no additional male genitourinary complaints Musculoskeletal: Reports no additional musculoskeletal complaints Skin/Breast: Reports system reviewed and no additional complaints, except as docu Reports weakness Endocrine: Reports fatigue Hematologic/Lymphatic: Reports no additional hematologic/lymphatic complaints Allergic/Immunologic: Reports no additional allergic/immunologic complaints Mental Status Exam Mental Status Exam Narrative: Appearance: thin, casually groomed with cap (same clothes for weeks), poor hygiene, in NAD Behavior: calm Psychomotor: some retardation noted Speech: clear, mildly slowed rate/rhythm/ soft spoken TP: linear, goal oriented TC: dealing with anxiety Mood: good Affect:mildly guarded SI:denies AH/VH:denies Delusions:no paranoid delusions expressed Insight/judgment:impaired Memory/cog: alert, significant impairment in different aspects based on MOCA 03/03 most difficulty with visuo spatial, attention, recall, language fluency. Repeat MOCA on 09/29 04/02, similar pattern of impairments, slight improvement in orientation. Diagnostics Vital Signs (24Hr): Vital Signs - 24 hr 10/10/20 18:00 10/11/20 06:35 Temperature 98.4 F 97.3 F Pulse Rate 97 90 Respiratory Rate 16 16 Blood Pressure 126/88 127/83 Pulse Oximetry 96 96 Body Mass Index 18.7 Labs Results: 09/03/20 04:25 09/14/20 14:07 Imaging Radiology Impressions: ITS Impressions Head CT 09/03/20 03:56 IMPRESSION: No evidence for acute intracranial injury. Automated exposure control (Care Dose) Adjustment of the mA and/or kv according to patient size (this includes techniques or standardized protocols for targeted exams where dose is matched to indication / reason for exam; i.e. extremities or head). Brain MRI 09/20/20 10:13 IMPRESSION: 1. No acute intracranial abnormalities. 2. Mild underlying microangiopathy and generalized cerebral volume loss. Abdomen MRI 09/29/20 14:15 IMPRESSION: Limited study due to lack of IV contrast and motion. Status post left nephrectomy. Likely simple cysts in the right kidney. No lymphadenopathy. No mass in the left nephrectomy bed. Medications Medications Current Medications Generic Name Dose Route Start Last Admin Trade Name Freq PRN Reason Stop Dose Admin Acetaminophen 650 mg 09/08/20 20:02 10/05/20 11:09 Acetaminophen 325 Mg Tablet PO 650 mg Q6H PRN Administration Headache/Pain Mild Scale (1-3) Al Hydroxide/Mg Hydroxide 30 ml 09/08/20 20:02 09/25/20 16:02 Magnesium Hydrox/Alum Hydrox 30 Ml Oral.Susp PO 30 ml Q6H PRN Administration Heartburn/Nausea Donepezil HCl 5 mg 10/07/20 21:00 10/10/20 22:14 Donepezil Hcl 5 Mg Tablet PO 5 mg BEDTIME JOSE RAFAEL Administration Dorzolamide HCl 1 drop 09/11/20 15:00 10/11/20 08:49 Dorzolamide Hcl 2 % Ophth Catina 10 Ml Drpbtl EYE-RIGHT 1 drop TID JOSE RAFAEL Administration Hydroxyzine HCl 25 mg 09/08/20 20:02 09/21/20 00:50 Hydroxyzine Hcl 25 Mg Tablet PO 25 mg BEDTIME PRN Administration Anxiety Magnesium Hydroxide 30 ml 09/08/20 20:02 09/27/20 13:09 Milk Of Magnesia 30 Ml Oral.Susp PO 30 ml DAILY PRN Administration Constipation Patient Own 1 each 09/11/20 21:00 10/11/20 08:51 Medication (Combigan EYE-BOTH 1 each Eye Drops) BID JOSE RAFAEL Administration Pharmacy Consult 1 each 09/03/20 09:51 Consult Rx Perform Med Rec MISCELLANE ONCE PRN Consult order Risperidone 1 mg 09/17/20 09:00 10/11/20 08:49 Risperidone 1 Mg Tablet PO 1 mg DAILY JOSE RAFAEL Administration Risperidone 2 mg 09/16/20 21:00 10/10/20 22:14 Risperidone 2 Mg Tablet PO 2 mg BEDTIME JOSE RAFAEL Administration Trazodone HCl 25 mg 09/16/20 21:00 10/10/20 22:14 Trazodone Hcl 25 Mg Halftab PO 25 mg BEDTIME JOSE RAFAEL Administration Venlafaxine HCl 75 mg 10/01/20 09:00 10/11/20 08:48 Venlafaxine Hcl Er 75 Mg Cap.Er.24h PO 75 mg DAILY JOSE RAFAEL Administration Allergies Allergies Allergy/AdvReac Type Severity Reaction Status Date / Time No Known Allergies Allergy Verified 09/03/20 03:47 Assessment & Plan Assessment & Plan (1) Major depression with psychotic features: Status: Acute Code(s): F32.3 - Major depressive disorder, single episode, severe with psychotic features (2) Dementia: Status: Acute Code(s): F03.90 - Unspecified dementia without behavioral disturbance Assessment and Plan: F/P -continues to intermittently refuse Glaucoma eye drops (took them yesterday after much encouragement) saying drops cause burning sensation in his eyes -pt says he does not want to go blind, and knows drops are to prevent blindness/tx glaucoma, however he continues to refuse them and is not able to discuss how to proceed about resolving issue. -Might consider if patient has capacity to refuse glaucoma eye drops given that refusal risks blindness; will defer to primary team 1. Most likely of mixed etiology Vascular and AD. 2. Continue Aricept 5mg po qhs 3. continue risperidone 4. continue effexor. Greater than 50% of the session was spent on counseling and/or coordination of care Reason for contiued inpatient stay Substantial Risk for: inability to function
--- NOTE | 2020-10-11 15:45 | HO.PSYCHPN ---
Subjective Subjective Date of Service: 10/11/20 Reason For Visit: Depression with psychosis Diagnostics Vital Signs (24Hr): Vital Signs - 24 hr 10/10/20 18:00 10/11/20 06:35 Temperature 98.4 F 97.3 F Pulse Rate 97 90 Respiratory Rate 16 16 Blood Pressure 126/88 127/83 Pulse Oximetry 96 96 Body Mass Index 18.7 Labs Results: 09/03/20 04:25 09/14/20 14:07 Imaging Radiology Impressions: ITS Impressions Head CT 09/03/20 03:56 IMPRESSION: No evidence for acute intracranial injury. Automated exposure control (Care Dose) Adjustment of the mA and/or kv according to patient size (this includes techniques or standardized protocols for targeted exams where dose is matched to indication / reason for exam; i.e. extremities or head). Brain MRI 09/20/20 10:13 IMPRESSION: 1. No acute intracranial abnormalities. 2. Mild underlying microangiopathy and generalized cerebral volume loss. Abdomen MRI 09/29/20 14:15 IMPRESSION: Limited study due to lack of IV contrast and motion. Status post left nephrectomy. Likely simple cysts in the right kidney. No lymphadenopathy. No mass in the left nephrectomy bed. Medications Medications Current Medications Generic Name Dose Route Start Last Admin Trade Name Freq PRN Reason Stop Dose Admin Acetaminophen 650 mg 09/08/20 20:02 10/05/20 11:09 Acetaminophen 325 Mg Tablet PO 650 mg Q6H PRN Administration Headache/Pain Mild Scale (1-3) Al Hydroxide/Mg Hydroxide 30 ml 09/08/20 20:02 09/25/20 16:02 Magnesium Hydrox/Alum Hydrox 30 Ml Oral.Susp PO 30 ml Q6H PRN Administration Heartburn/Nausea Donepezil HCl 5 mg 10/07/20 21:00 10/10/20 22:14 Donepezil Hcl 5 Mg Tablet PO 5 mg BEDTIME JOSE RAFAEL Administration Dorzolamide HCl 1 drop 09/11/20 15:00 10/11/20 08:49 Dorzolamide Hcl 2 % Ophth Catina 10 Ml Drpbtl EYE-RIGHT 1 drop TID JOSE RAFAEL Administration Hydroxyzine HCl 25 mg 09/08/20 20:02 09/21/20 00:50 Hydroxyzine Hcl 25 Mg Tablet PO 25 mg BEDTIME PRN Administration Anxiety Magnesium Hydroxide 30 ml 09/08/20 20:02 09/27/20 13:09 Milk Of Magnesia 30 Ml Oral.Susp PO 30 ml DAILY PRN Administration Constipation Patient Own 1 each 09/11/20 21:00 10/11/20 08:51 Medication (Combigan EYE-BOTH 1 each Eye Drops) BID JOSE RAFAEL Administration Pharmacy Consult 1 each 09/03/20 09:51 Consult Rx Perform Med Rec MISCELLANE ONCE PRN Consult order Risperidone 1 mg 09/17/20 09:00 10/11/20 08:49 Risperidone 1 Mg Tablet PO 1 mg DAILY JOSE RAFAEL Administration Risperidone 2 mg 09/16/20 21:00 10/10/20 22:14 Risperidone 2 Mg Tablet PO 2 mg BEDTIME JOSE RAFAEL Administration Trazodone HCl 25 mg 09/16/20 21:00 10/10/20 22:14 Trazodone Hcl 25 Mg Halftab PO 25 mg BEDTIME JOSE RAFAEL Administration Venlafaxine HCl 75 mg 10/01/20 09:00 10/11/20 08:48 Venlafaxine Hcl Er 75 Mg Cap.Er.24h PO 75 mg DAILY JOSE RAFAEL Administration Allergies Allergies Allergy/AdvReac Type Severity Reaction Status Date / Time No Known Allergies Allergy Verified 09/03/20 03:47 Assessment & Plan Assessment & Plan (1) Major depression with psychotic features: Status: Acute Code(s): F32.3 - Major depressive disorder, single episode, severe with psychotic features (2) Dementia: Status: Acute Code(s): F03.90 - Unspecified dementia without behavioral disturbance Assessment and Plan: F/P -continues to intermittently refuse Glaucoma eye drops (took them yesterday after much encouragement) saying drops cause burning sensation in his eyes -pt says he does not want to go blind, and knows drops are to prevent blindness/tx glaucoma, however he continues to refuse them and is not able to discuss how to proceed about resolving issue. -Might consider if patient has capacity to refuse glaucoma eye drops given that refusal risks blindness; will defer to primary team 1. Most likely of mixed etiology Vascular and AD. 2. Continue Aricept 5mg po qhs 3. continue risperidone 4. continue effexor. Greater than 50% of the session was spent on counseling and/or coordination of care
--- NOTE | 2020-10-11 15:54 | PM.GPSY.PN ---
Subjective/Objective Subjective Current Medications: Active Medications Generic Name Dose Route Start Last Admin Trade Name Freq PRN Reason Stop Dose Admin Acetaminophen 650 mg 09/08/20 20:02 10/05/20 11:09 Acetaminophen 325 Mg Tablet PO 650 mg Q6H PRN Administration Headache/Pain Mild Scale (1-3) Al Hydroxide/Mg Hydroxide 30 ml 09/08/20 20:02 09/25/20 16:02 Magnesium Hydrox/Alum Hydrox 30 Ml Oral.Susp PO 30 ml Q6H PRN Administration Heartburn/Nausea Donepezil HCl 5 mg 10/07/20 21:00 10/10/20 22:14 Donepezil Hcl 5 Mg Tablet PO 5 mg BEDTIME JOSE RAFAEL Administration Dorzolamide HCl 1 drop 09/11/20 15:00 10/11/20 15:52 Dorzolamide Hcl 2 % Ophth Catina 10 Ml Drpbtl EYE-RIGHT Not Given TID JOSE RAFAEL Hydroxyzine HCl 25 mg 09/08/20 20:02 09/21/20 00:50 Hydroxyzine Hcl 25 Mg Tablet PO 25 mg BEDTIME PRN Administration Anxiety Magnesium Hydroxide 30 ml 09/08/20 20:02 09/27/20 13:09 Milk Of Magnesia 30 Ml Oral.Susp PO 30 ml DAILY PRN Administration Constipation Patient Own 1 each 09/11/20 21:00 10/11/20 08:51 Medication (Combigan EYE-BOTH 1 each Eye Drops) BID JOSE RAFAEL Administration Pharmacy Consult 1 each 09/03/20 09:51 Consult Rx Perform Med Rec MISCELLANE ONCE PRN Consult order Risperidone 1 mg 09/17/20 09:00 10/11/20 08:49 Risperidone 1 Mg Tablet PO 1 mg DAILY JOSE RAFAEL Administration Risperidone 2 mg 09/16/20 21:00 10/10/20 22:14 Risperidone 2 Mg Tablet PO 2 mg BEDTIME JOSE RAFAEL Administration Trazodone HCl 25 mg 09/16/20 21:00 10/10/20 22:14 Trazodone Hcl 25 Mg Halftab PO 25 mg BEDTIME JOSE RAFAEL Administration Venlafaxine HCl 75 mg 10/01/20 09:00 10/11/20 08:48 Venlafaxine Hcl Er 75 Mg Cap.Er.24h PO 75 mg DAILY JOSE RAFAEL Administration Data Labs CBC & Chem 7: 09/03/20 04:25 09/14/20 14:07
[2020-10-11 18:00] VITALS: BP 123/83; PULSE 88; RESP 18; TEMP 36.3; O2SAT 96
[2020-10-11] MEDS: traZODone HCL 25 MG HALFTAB PO (20:20)
[2020-10-11] MEDS: Donepezil HCl 5 MG TABLET PO (20:21)
[2020-10-11] MEDS: risperiDONE 2 MG TABLET PO (20:21)
[2020-10-12 06:25] VITALS: BP 135/81; PULSE 92; RESP 16; TEMP 36.7; O2SAT 97
[2020-10-12] MEDS: risperiDONE 1 MG TABLET PO (08:39)
[2020-10-12] MEDS: Venlafaxine HCl ER 75 MG CAP.ER.24H PO (08:39)
[2020-10-12] MEDS: Dorzolamide HCl 2 % Ophth Sol 10 ML DRPBTL 1 DROP EYE-RIGHT (08:40)
--- NOTE | 2020-10-12 12:37 | P.PNPSI_ITS ---
Subjective Subjective Date of Service: 10/12/20 Reason For Visit: Depression with psychosis Subjective Notes: Conditional Voluntary Interim History: Willian reports that he is sleeping and eating well. He continues to intermittently decline eye drops for glaucoma. He did agree to take them this morning after much encouragement. At times he reports the ones here ar e not the correct ones despite verifying with his OP production tool engineer. he also reported over the weekend that one of them causing burning sensation. Today, he denies burning with eye drops. He reports mood is okay. He denies SI/HI. He continues to decline taking shower, stating he will do it later, but its been more than two weeks of him declining. He has visible in the [place], but does not attend assigned groups. He is minimally interactive with peers. No behavioral concerns. All other medicat ions he is taking them consistently. Medication Compliance: Intermittent Side effects from medications: No Attending Groups: No Review of Systems Review of Systems Yes all other systems are reviewed and are negative and Unobtainable due to mental status (asleep ) Constitutional: Reports no additional constitutional complaints, Reports fatigue, Reports lethargy, Reports poor appetite, Reports weakness and Reports weight loss Eyes: Reports no additional eye complaints Reports system reviewed and no additional complaints, except as documented Cardiovascular: Reports no additional cardiovascular complaints Respiratory: Reports no additional respiratory complaints Gastrointestinal: Reports no additional gastrointestinal complaints and Reports constipation Genitourinary: Reports no additional male genitourinary complaints Musculoskeletal: Reports no additional musculoskeletal complaints Skin/Breast: Reports system reviewed and no additional complaints, except as docu Reports behavioral changes, Reports confusion and Reports weakness Psychiatric: Reports no additional psychiatric complaints, Reports abnormal sleep pattern, Reports anxiety, Reports behavioral changes, Reports confusion, Reports depression (denies), Reports difficulty concentrating and Reports other (anergy) Endocrine: Reports no additional endocrine complaints and Reports fatigue Hematologic/Lymphatic: Reports no additional hematologic/lymphatic complaints Allergic/Immunologic: Reports no additional allergic/immunologic complaints Mental Status Exam Mental Status Exam Narrative: Appearance: thin, casually groomed with cap (same clothes for weeks), poor hygiene, in NAD Behavior: calm Psychomotor: some retardation noted Speech: clear, mildly slowed rate/rhythm/ soft spoken TP: linear, goal oriented TC: dealing with anxiety Mood: good Affect:mildly guarded SI:denies AH/VH:denies Delusions:no paranoid delusions expressed Insight/judgment:impaired Memory/cog: alert, significant impairment in different aspects based on MOCA 03/03 most difficulty with visuo spatial, attention, recall, language fluency. Repeat MOCA on 09/29 04/02, similar pattern of impairments, slight improvement in orientation. Diagnostics Vital Signs (24Hr): Vital Signs - 24 hr 10/11/20 18:00 10/12/20 06:25 Temperature 97.3 F 98.1 F Pulse Rate 88 92 Respiratory Rate 18 16 Blood Pressure 123/83 135/81 Pulse Oximetry 96 97 Body Mass Index 18.7 Labs Results: 09/03/20 04:25 09/14/20 14:07 Imaging Radiology Impressions: ITS Impressions Head CT 09/03/20 03:56 IMPRESSION: No evidence for acute intracranial injury. Automated exposure control (Care Dose) Adjustment of the mA and/or kv according to patient size (this includes techniques or standardized protocols for targeted exams where dose is matched to indication / reason for exam; i.e. extremities or head). Brain MRI 09/20/20 10:13 IMPRESSION: 1. No acute intracranial abnormalities. 2. Mild underlying microangiopathy and generalized cerebral volume loss. Abdomen MRI 09/29/20 14:15 IMPRESSION: Limited study due to lack of IV contrast and motion. Status post left nephrectomy. Likely simple cysts in the right kidney. No lymphadenopathy. No mass in the left nephrectomy bed. Medications Medications Current Medications Generic Name Dose Route Start Last Admin Trade Name Freq PRN Reason Stop Dose Admin Acetaminophen 650 mg 09/08/20 20:02 10/05/20 11:09 Acetaminophen 325 Mg Tablet PO 650 mg Q6H PRN Administration Headache/Pain Mild Scale (1-3) Al Hydroxide/Mg Hydroxide 30 ml 09/08/20 20:02 09/25/20 16:02 Magnesium Hydrox/Alum Hydrox 30 Ml Oral.Susp PO 30 ml Q6H PRN Administration Heartburn/Nausea Donepezil HCl 5 mg 10/07/20 21:00 10/11/20 20:21 Donepezil Hcl 5 Mg Tablet PO 5 mg BEDTIME JOSE RAFAEL Administration Dorzolamide HCl 1 drop 09/11/20 15:00 10/12/20 08:40 Dorzolamide Hcl 2 % Ophth Catina 10 Ml Drpbtl EYE-RIGHT 1 drop TID JOSE RAFAEL Administration Hydroxyzine HCl 25 mg 09/08/20 20:02 09/21/20 00:50 Hydroxyzine Hcl 25 Mg Tablet PO 25 mg BEDTIME PRN Administration Anxiety Magnesium Hydroxide 30 ml 09/08/20 20:02 09/27/20 13:09 Milk Of Magnesia 30 Ml Oral.Susp PO 30 ml DAILY PRN Administration Constipation Patient Own 1 each 09/11/20 21:00 10/12/20 11:00 Medication (Combigan EYE-BOTH 1 each Eye Drops) BID JOSE RAFAEL Administration Pharmacy Consult 1 each 09/03/20 09:51 Consult Rx Perform Med Rec MISCELLANE ONCE PRN Consult order Risperidone 1 mg 09/17/20 09:00 10/12/20 08:39 Risperidone 1 Mg Tablet PO 1 mg DAILY JOSE RAFAEL Administration Risperidone 2 mg 09/16/20 21:00 10/11/20 20:21 Risperidone 2 Mg Tablet PO 2 mg BEDTIME JOSE RAFAEL Administration Trazodone HCl 25 mg 09/16/20 21:00 10/11/20 20:20 Trazodone Hcl 25 Mg Halftab PO 25 mg BEDTIME JOSE RAFAEL Administration Venlafaxine HCl 75 mg 10/01/20 09:00 10/12/20 08:39 Venlafaxine Hcl Er 75 Mg Cap.Er.24h PO 75 mg DAILY JOSE RAFAEL Administration Allergies Allergies Allergy/AdvReac Type Severity Reaction Status Date / Time No Known Allergies Allergy Verified 09/03/20 03:47 Assessment & Plan Assessment & Plan (1) Major depression with psychotic features: Status: Acute Code(s): F32.3 - Major depressive disorder, single episode, severe with psychotic features (2) Dementia: Status: Acute Code(s): F03.90 - Unspecified dementia without behavioral disturbance Assessment and Plan: F/P -continues to intermittently refuse Glaucoma eye drops (took them yesterday after much encouragement) saying drops cause burning sensation in his eyes -pt says he does not want to go blind, and knows drops are to prevent blindness/tx glaucoma, however he continues to refuse them and is not able to discuss how to proceed about resolving issue. -Might consider if patient has capacity to refuse glaucoma eye drops given that refusal risks blindness; will defer to primary team 1. Most likely of mixed etiology Vascular and AD. 2. Continue Aricept 5mg po qhs 3. continue risperidone 4. continue effexor. Greater than 50% of the session was spent on counseling and/or coordination of care Reason for contiued inpatient stay Substantial Risk for: inability to function
[2020-10-12 18:00] VITALS: BP 125/83; PULSE 112; TEMP 36.9
[2020-10-12] MEDS: Donepezil HCl 5 MG TABLET PO (20:17)
[2020-10-12] MEDS: risperiDONE 2 MG TABLET PO (20:17)
[2020-10-12] MEDS: traZODone HCL 25 MG HALFTAB PO (20:17)
[2020-10-13 05:45] VITALS: BP 142/91; PULSE 97; RESP 14; TEMP 36.5; O2SAT 95
[2020-10-13] MEDS: Venlafaxine HCl ER 75 MG CAP.ER.24H PO (09:19)
[2020-10-13] MEDS: risperiDONE 1 MG TABLET PO (09:19)
[2020-10-13] MEDS: Dorzolamide HCl 2 % Ophth Sol 10 ML DRPBTL 1 DROP EYE-RIGHT (09:22)
--- NOTE | 2020-10-13 14:15 | HO.PSYCHPN ---
Subjective Subjective Date of Service: 10/13/20 Reason For Visit: Depression with psychosis Interim History: Willian continues to report that he is doing good. He reports sleeping well although some difficulty falling asleep. He denies SI/HI. He reports feeling anxious about going to [facility] but open to try it. He denies VH/AH. continues to decline taking a shower. Taking all meds with much encouragement. No behavioral concerns. Review of Systems Review of Systems Yes all other systems are reviewed and are negative and Unobtainable due to mental status (asleep ) Constitutional: Reports no additional constitutional complaints, Reports fatigue, Reports lethargy, Reports poor appetite, Reports weakness and Reports weight loss Eyes: Reports no additional eye complaints Reports system reviewed and no additional complaints, except as documented Cardiovascular: Reports no additional cardiovascular complaints Respiratory: Reports no additional respiratory complaints Gastrointestinal: Reports no additional gastrointestinal complaints and Reports constipation Genitourinary: Reports no additional male genitourinary complaints Musculoskeletal: Reports no additional musculoskeletal complaints Skin/Breast: Reports system reviewed and no additional complaints, except as docu Reports behavioral changes, Reports confusion and Reports weakness Psychiatric: Reports no additional psychiatric complaints, Reports abnormal sleep pattern, Reports anxiety, Reports behavioral changes, Reports confusion, Reports depression (denies), Reports difficulty concentrating and Reports other (anergy) Endocrine: Reports no additional endocrine complaints and Reports fatigue Hematologic/Lymphatic: Reports no additional hematologic/lymphatic complaints Allergic/Immunologic: Reports no additional allergic/immunologic complaints Mental Status Exam Mental Status Exam Narrative: Appearance: thin, casually groomed with cap (same clothes for weeks), poor hygiene, in NAD Behavior: calm Psychomotor: some retardation noted Speech: clear, mildly slowed rate/rhythm/ soft spoken TP: linear, goal oriented TC: dealing with anxiety Mood: good Affect:mildly guarded SI:denies AH/VH:denies Delusions:no paranoid delusions expressed Insight/judgment:impaired Memory/cog: alert, significant impairment in different aspects based on MOCA 03/03 most difficulty with visuo spatial, attention, recall, language fluency. Repeat MOCA on 09/29 04/02, similar pattern of impairments, slight improvement in orientation. Diagnostics Vital Signs (24Hr): Vital Signs - 24 hr 10/12/20 18:00 10/13/20 05:45 Temperature 98.5 F 97.7 F Pulse Rate 112 H 97 Respiratory Rate 14 Blood Pressure 125/83 142/91 H Pulse Oximetry 95 Body Mass Index 18.7 Labs Results: 09/03/20 04:25 09/14/20 14:07 Imaging Radiology Impressions: ITS Impressions Head CT 09/03/20 03:56 IMPRESSION: No evidence for acute intracranial injury. Automated exposure control (Care Dose) Adjustment of the mA and/or kv according to patient size (this includes techniques or standardized protocols for targeted exams where dose is matched to indication / reason for exam; i.e. extremities or head). Brain MRI 09/20/20 10:13 IMPRESSION: 1. No acute intracranial abnormalities. 2. Mild underlying microangiopathy and generalized cerebral volume loss. Abdomen MRI 09/29/20 14:15 IMPRESSION: Limited study due to lack of IV contrast and motion. Status post left nephrectomy. Likely simple cysts in the right kidney. No lymphadenopathy. No mass in the left nephrectomy bed. Medications Medications Current Medications Generic Name Dose Route Start Last Admin Trade Name Freq PRN Reason Stop Dose Admin Acetaminophen 650 mg 09/08/20 20:02 10/05/20 11:09 Acetaminophen 325 Mg Tablet PO 650 mg Q6H PRN Administration Headache/Pain Mild Scale (1-3) Al Hydroxide/Mg Hydroxide 30 ml 09/08/20 20:02 09/25/20 16:02 Magnesium Hydrox/Alum Hydrox 30 Ml Oral.Susp PO 30 ml Q6H PRN Administration Heartburn/Nausea Donepezil HCl 5 mg 10/07/20 21:00 10/12/20 20:17 Donepezil Hcl 5 Mg Tablet PO 5 mg BEDTIME [facility] Administration Dorzolamide HCl 1 drop 09/11/20 15:00 10/13/20 09:22 Dorzolamide Hcl 2 % Ophth Catina 10 Ml Drpbtl EYE-RIGHT 1 drop TID [facility] Administration Hydroxyzine HCl 25 mg 09/08/20 20:02 09/21/20 00:50 Hydroxyzine Hcl 25 Mg Tablet PO 25 mg BEDTIME PRN Administration Anxiety Magnesium Hydroxide 30 ml 09/08/20 20:02 09/27/20 13:09 Milk Of Magnesia 30 Ml Oral.Susp PO 30 ml DAILY PRN Administration Constipation Patient Own 1 each 09/11/20 21:00 10/13/20 09:20 Medication (Combigan EYE-BOTH 1 each Eye Drops) BID [facility] Administration Pharmacy Consult 1 each 09/03/20 09:51 Consult Rx Perform Med Rec MISCELLANE ONCE PRN Consult order Risperidone 1 mg 09/17/20 09:00 10/13/20 09:19 Risperidone 1 Mg Tablet PO 1 mg DAILY [facility] Administration Risperidone 2 mg 09/16/20 21:00 10/12/20 20:17 Risperidone 2 Mg Tablet PO 2 mg BEDTIME [facility] Administration Trazodone HCl 25 mg 09/16/20 21:00 10/12/20 20:17 Trazodone Hcl 25 Mg Halftab PO 25 mg BEDTIME [facility] Administration Venlafaxine HCl 75 mg 10/01/20 09:00 10/13/20 09:19 Venlafaxine Hcl Er 75 Mg Cap.Er.24h PO 75 mg DAILY [facility] Administration Allergies Allergies Allergy/AdvReac Type Severity Reaction Status Date / Time No Known Allergies Allergy Verified 09/03/20 03:47 Assessment & Plan Assessment & Plan (1) Major depression with psychotic features: Status: Acute Code(s): F32.3 - Major depressive disorder, single episode, severe with psychotic features (2) Dementia: Status: Acute Code(s): F03.90 - Unspecified dementia without behavioral disturbance Assessment and Plan: F/P -continues to intermittently refuse Glaucoma eye drops (took them yesterday after much encouragement) saying drops cause burning sensation in his eyes -pt says he does not want to go blind, and knows drops are to prevent blindness/tx glaucoma, however he continues to refuse them and is not able to discuss how to proceed about resolving issue. -Might consider if patient has capacity to refuse glaucoma eye drops given that refusal risks blindness; will defer to primary team 1. Most likely of mixed etiology Vascular and AD. 2. Continue Aricept 5mg po qhs 3. continue risperidone 4. continue effexor. Greater than 50% of the session was spent on counseling and/or coordination of care Reason for contiued inpatient stay Substantial Risk for: stable for discharge
--- NOTE | 2020-10-13 14:35 | PM.PSYDC ---
DS: Providers Provider Date of Service: 11/02/20 Date of admission: 09/08/20 19:16 Primary care physician: Unknown Physician Consults: 09/06/20 08:39 Consult to Psychiatry Stat Consulting Provider: Anahi Cooney Reason for consultation: medication management 09/21/20 13:19 Consult to Neurology Routine Consulting Provider: Lalito Leal Reason for consultation: 2 MONTH ACUTE MS CHANGE PARANOIDR/O PARANEOPLASTIC DEMENTIAVS PSEUDO 09/23/20 13:24 Consult to Hematology / Oncology Routine Consulting Provider: Kimberly Ingram Reason for consultation: ? paraneoplatic syndrome advise workup hx renal ca Has provider been notified: No 10/07/20 15:13 Consult to Hospitalist Routine Consulting Provider: Hospitalist Reason For Exam: acute right ear pain 10/10/20 15:01 Consult to Hospitalist Routine Consulting Provider: Hospitalist Reason For Exam: pt says glaocoma drops burn and refuses; assess DS: Diagnosis Discharge Diagnosis (1) Major depression with psychotic features: Status: Acute (2) Dementia: Status: Acute DS: Medications Discharge Medications Home Medications: Previous Rx's Medication Instructions Recorded Combigan 1 drp OPHTHALMIC (EYE) BID #10 ml 10/13/20 donepezil 5 mg PO BEDTIME 30 Days #30 tab 10/13/20 dorzolamide 1 drp OPHTHALMIC-RIGHT TID 30 Days 10/13/20 #10 ml risperidone 1 mg PO DAILY 30 Days #30 tab 10/13/20 risperidone 2 mg PO BEDTIME 30 Days #30 tab 10/13/20 venlafaxine 75 mg PO DAILY 30 Days #30 cap 10/13/20 Discharge Plan Discharge Patient Disposition: Home, Self-Care Discharge Diagnosis: MDD with psychosis Referrals: [facility] [Other] (Referral submitted. Either they will call you, or community mental health social worker will call to provide the date/time of appointment) Willian Chou [Other] - 11/02/20 10:30 am (In office. ) Dr. Parham [Other] - 11/10/20 11:00 am Bartolo Parham MD [Physician] - 10/28/20 11:30 am Discharge Medications: New venlafaxine 75 mg Capsule,Extended Release 24hr 75 mg PO DAILY 30 Days Qty: 30 RF: 0 donepezil 5 mg Tablet 5 mg PO BEDTIME 30 Days Qty: 30 RF: 0 risperidone 2 mg Tablet 2 mg PO BEDTIME 30 Days Qty: 30 RF: 0 risperidone 1 mg Tablet 1 mg PO DAILY 30 Days Qty: 30 RF: 0 dorzolamide 2 % Drops 1 drp ophthalmic-Right TID 30 Days Qty: 10 RF: 0 Continued Combigan 0.2-0.5 % Drops 1 drp OPHTHALMIC (EYE) BID Qty: 10 RF: 0 Discontinued Anacin 400-32 mg Tablet 1 tab PO Q6H PRN (Reason: Headache) RF: 0 lorazepam 1 mg tablet 1 tab PO Q8H PRN (Reason: anxiety) RF: 0 Discharge Orders: Discharge Order (Routine); Ordered 10/14/20 Ordered By: Dimas Rivers Diet: regular diet Activity on Discharge: As tolerated Stand Alone Forms: Patient Portal Discharge page, Community Support Care Plan Goals: 1. Take medications as prescribed. 2. Follow up with referrals Health Concerns: Follow up with PCP and yarn weigher. Plan of Treatment: 1. Go to nearest ED or call 911 in event of emergency. Assessment: Pt with no signs of psychosis. No behavioral concerns. Discharge Date/Time: 10/14/20 14:45 Mental Status Exam Mental Status Exam Narrative: Appearance: thin, casually groomed with cap (same clothes for weeks), poor hygiene, in NAD Behavior: calm Psychomotor: some retardation noted Speech: clear, mildly slowed rate/rhythm/ soft spoken TP: linear, goal oriented TC: dealing with anxiety Mood: good Affect:mildly guarded SI:denies AH/VH:denies Delusions:no paranoid delusions expressed Insight/judgment:impaired Memory/cog: alert, significant impairment in different aspects based on MOCA 03/03 most difficulty with visuo spatial, attention, recall, language fluency. Repeat MOCA on 09/29 04/02, similar pattern of impairments, slight improvement in orientation. Data Imaging Diagnostic Imaging Impressions Head CT 09/03/20 03:56 IMPRESSION: No evidence for acute intracranial injury. Automated exposure control (Care Dose) Adjustment of the mA and/or kv according to patient size (this includes techniques or standardized protocols for targeted exams where dose is matched to indication / reason for exam; i.e. extremities or head). Brain MRI 09/20/20 10:13 IMPRESSION: 1. No acute intracranial abnormalities. 2. Mild underlying microangiopathy and generalized cerebral volume loss. Abdomen MRI 09/29/20 14:15 IMPRESSION: Limited study due to lack of IV contrast and motion. Status post left nephrectomy. Likely simple cysts in the right kidney. No lymphadenopathy. No mass in the left nephrectomy bed. DS: Summary Hospital Course Hospital Course: Mr. Moody is a 70 year-old male who was brought to [facility] ED due to increase anxious mood, paranoid delusions and VH/AH. In the ED, his utox was negative. Head CT unremarkable. Apparently, pt had previous episode of psychosis several years ago. On the unit, Mr. Gabriel presents as guarded, disheveled and somewhat malnourished. He reports he is here in psychiatric unit due to increase anxiety because he is worried about his health, specially his eye sight. Pt has open glaucoma, recently prescribed new eye drops, and pt worried he may be coming blind. However, he states he has not been told that he is legally blind and he is able to see some papers that were given to him on admission. He reports seeing people at home, which he thought were there but notes that if daughter couldn't see them, maybe they were not there. However, pt does appear fairly guarded and not fully forthcoming. He reports his sleep and appetite are fine. He denies suicidal or homicidal ideation. Per daughter- pt has been presenting as increasingly more anxious, paranoid with VH/AH for about 3-4 weeks. Daughter denies recent changes in memory and cognition in the past years. Daughter reports that pt able to pay bills on his own and care for himself. However, this health science writer completed MOCA today and pt scored 9/30 significant difficulty with visuospatial/executive function, recall (0/5), attention, orientation (thought month is DECEMBER), language fluency (only 3 words in one minute). Pt does have a bilat resting tremor. Past Psychiatric History: Inpt: none OP: none Suicide attempts: none HOSPITAL COURSE Mr. Fuentes was admitted on CV. He was placed on 15 minutes checks for safety. Pt initially reported seeing people in his apartment who were trying to hurt him. He did question it when his daughter told him that she couldn't see these people. Pt also reported feeling anxious about his health, in particular his eyes, which he has been dx with open glaucoma and was told to use eye drops. Despite his concerns, pt decline using the eye drops several times as he thought the ones given in hospital were not the correct one. These drops were verified with his OP provider, still, pt continued to report those were not the right one. There were significant concerns about his memory and cognitive as pt was often not oriented to month, situation, year, would get loss in unit and did not know his room. After discussing risks, benefits and alternative treatment option with him and his daughter, pt agreed to start risperidone for psychosis. He was also started on venlafaxine for mood. His affect gradually brighten, he appeared less suspicious and did not report AH or VH. MOCA was completed once mood was stable and pt was not actively experiencing psychosis. Pt scored 9/30 on MOCA, with impairments in executive function, recall, language repetition/naming/fluency, orientation. CT scan showed significant atrophy and microvascular changes. There was discussion about reemerging renal cancer that may cause paraneoplastic syndrome, but abdominal MRI did not show re-emergence of renal carcinoma per oncologist, Dr. Ingram. Pt's daughter was educated on cognitive impairments and need for support in the community. Pt did agree to sign power of environmental attorney and HCP, appointing daughter as both. There were no incidences of disruptive behaviors nor use of restraints. Status at Discharge Cognitive/behavioral status at discharge: Pt presents with brighter affect. No AH/VH. less paranoid. No signs of aggression towards self or others. No SI/HI. Pt does have underlying cognitive impairments affecting multiple functional aspects including recall, executive function- ability to plan and execute. Functional status at discharge: independent ambulation Overall status at discharge: patient is progressing back to baseline Time Spent with Patient Time attestation: Total time spent providing and/or coordinating discharge services:
--- NOTE | 2020-10-13 14:39 | PC.NURSE ---
Pt approached for individual OT session for increased participation in unit, decrease anxiety and increase ADL participation; pt refusing at this time, will re-approach tomorrow.
[2020-10-13 17:10] VITALS: BP 133/85; PULSE 98; RESP 18; TEMP 37.1; O2SAT 97
[2020-10-13] MEDS: traZODone HCL 25 MG HALFTAB PO (21:19)
[2020-10-13] MEDS: Donepezil HCl 5 MG TABLET PO (21:19)
[2020-10-13] MEDS: risperiDONE 2 MG TABLET PO (21:19)
[2020-10-14 06:25] VITALS: BP 125/89; PULSE 120; RESP 18; TEMP 36.6
[2020-10-14] MEDS: Venlafaxine HCl ER 75 MG CAP.ER.24H PO (08:18)
[2020-10-14] MEDS: risperiDONE 1 MG TABLET PO (08:18)
--- NOTE | 2020-10-14 12:23 | HO.PSYCHPN ---
Subjective Subjective Date of Service: 10/22/20 Reason For Visit: Depression with psychosis Interim History: met with patient and daughter who is pt's HCP. [employer] Workflow Consultant explained that currently patient presents as too disorganized to reliable make medical decisions and that HCP is invoked. [employer] Workflow Consultant explained that continuing to refuse his glaucoma medications could eventually result in blindness, an outcome which pt does not want but yet consistently struggles with accepting treatment (changes reasons why he does not want to take meds) . Daughter understands and will discuss with receiving facility and PCP Medication Compliance: No (glaucoma medications ) Diagnostics Vital Signs (24Hr): Vital Signs - 24 hr 10/13/20 17:10 10/14/20 06:25 Temperature 98.7 F 97.8 F Pulse Rate 98 120 H Respiratory Rate 18 18 Blood Pressure 133/85 125/89 Pulse Oximetry 97 Body Mass Index 18.7 Labs Results: 09/03/20 04:25 09/14/20 14:07 Imaging Radiology Impressions: ITS Impressions Head CT 09/03/20 03:56 IMPRESSION: No evidence for acute intracranial injury. Automated exposure control (Care Dose) Adjustment of the mA and/or kv according to patient size (this includes techniques or standardized protocols for targeted exams where dose is matched to indication / reason for exam; i.e. extremities or head). Brain MRI 09/20/20 10:13 IMPRESSION: 1. No acute intracranial abnormalities. 2. Mild underlying microangiopathy and generalized cerebral volume loss. Abdomen MRI 09/29/20 14:15 IMPRESSION: Limited study due to lack of IV contrast and motion. Status post left nephrectomy. Likely simple cysts in the right kidney. No lymphadenopathy. No mass in the left nephrectomy bed. Medications Medications Current Medications Generic Name Dose Route Start Last Admin Trade Name Freq PRN Reason Stop Dose Admin Acetaminophen 650 mg 09/08/20 20:02 10/05/20 11:09 Acetaminophen 325 Mg Tablet PO 650 mg Q6H PRN Administration Headache/Pain Mild Scale (1-3) Al Hydroxide/Mg Hydroxide 30 ml 09/08/20 20:02 09/25/20 16:02 Magnesium Hydrox/Alum Hydrox 30 Ml Oral.Susp PO 30 ml Q6H PRN Administration Heartburn/Nausea Donepezil HCl 5 mg 10/07/20 21:00 10/13/20 21:19 Donepezil Hcl 5 Mg Tablet PO 5 mg BEDTIME [facility] Administration Dorzolamide HCl 1 drop 09/11/20 15:00 10/14/20 08:24 Dorzolamide Hcl 2 % Ophth Catina 10 Ml Drpbtl EYE-RIGHT Not Given TID [facility] Hydroxyzine HCl 25 mg 09/08/20 20:02 09/21/20 00:50 Hydroxyzine Hcl 25 Mg Tablet PO 25 mg BEDTIME PRN Administration Anxiety Magnesium Hydroxide 30 ml 09/08/20 20:02 09/27/20 13:09 Milk Of Magnesia 30 Ml Oral.Susp PO 30 ml DAILY PRN Administration Constipation Patient Own 1 each 09/11/20 21:00 10/14/20 08:24 Medication (Combigan EYE-BOTH Not Given Eye Drops) BID [facility] Pharmacy Consult 1 each 09/03/20 09:51 Consult Rx Perform Med Rec MISCELLANE ONCE PRN Consult order Risperidone 1 mg 09/17/20 09:00 10/14/20 08:18 Risperidone 1 Mg Tablet PO 1 mg DAILY [facility] Administration Risperidone 2 mg 09/16/20 21:00 10/13/20 21:19 Risperidone 2 Mg Tablet PO 2 mg BEDTIME [facility] Administration Trazodone HCl 25 mg 09/16/20 21:00 10/13/20 21:19 Trazodone Hcl 25 Mg Halftab PO 25 mg BEDTIME [facility] Administration Venlafaxine HCl 75 mg 10/01/20 09:00 10/14/20 08:18 Venlafaxine Hcl Er 75 Mg Cap.Er.24h PO 75 mg DAILY [facility] Administration Allergies Allergies Allergy/AdvReac Type Severity Reaction Status Date / Time No Known Allergies Allergy Verified 09/03/20 03:47 Assessment & Plan Assessment & Plan (1) Major depression with psychotic features: Status: Acute Code(s): F32.3 - Major depressive disorder, single episode, severe with psychotic features (2) Dementia: Status: Acute Code(s): F03.90 - Unspecified dementia without behavioral disturbance Assessment and Plan: F/P -continues to intermittently refuse Glaucoma eye drops (took them yesterday after much encouragement) saying drops cause burning sensation in his eyes; another time says it gives migraine; other times saying not correct medications -pt says he does not want to go blind, and knows drops are to prevent blindness/tx glaucoma, however he continues to refuse them and is not able to discuss how to proceed about resolving issue. -junior copywriter finds that patient lacks capacity to refuse glaucoma eye drops given that refusal risks blindness; invoking HCP. Discussed this with his daughter who is HCP who understands and will oversee treatment. dementia: Most likely of mixed etiology Vascular and AD. - Continue Aricept 5mg po qhs mood - continue risperidone - continue effexor. Greater than 50% of the session was spent on counseling and/or coordination of care Reason for contiued inpatient stay Substantial Risk for: inability to function
== END 2020-10-14 14:45 | disposition home or self-care (01) | DRG 885 ==
LOC: HO.ED 09-08 14:07 → HO.PM5 09-08 20:01
PROVIDERS: Admitting Provider Clinical Nurse Specialist Psychiatric/Mental Health; Emergency Provider Internal Medicine; Visit Provider Social Worker
DX: F32.3 Major depressive disorder, single episode, severe with psychotic features (principal); H92.01 Otalgia, right ear; F03.90 Unspecified dementia, unspecified severity, without behavioral disturbance, psychotic disturbance, mood disturbance, and anxiety; Z90.5 Acquired absence of kidney; Z20.822 Contact with and (suspected) exposure to COVID-19; Z87.891 Personal history of nicotine dependence; Z79.899 Other long term (current) drug therapy
CPT/HCPCS: 36415; 70450; 70551; 74181; 80048; 80053; 80061; 80076; 81001; 82607; 82746; 83036; 83735; 84443; 85025; 85610; 86780; 87635; 93005; 95816; 99214; 99285; J2060

== ENCOUNTER 2020-12-21 16:03 | Outpatient (REF) | payer OTHER, SELFPAY ==
[2020-12-21 17:26] LABS: Alanine Aminotransferase 6 U/L (0-40); Aspartate Amino Transferase 13 U/L (5-37); Estimated Glomerular Filt Rate > 60
[2020-12-22 08:11] LABS: Syphilis Screen Nonreactive (Nonreactive)
[2020-12-22 08:18] LABS: HIV AB/AG Nonreactive (Nonreactive); HIV Num 1 0.07 S/CO (0.00-0.99)
[2020-12-22 16:40] LABS: Vitamin B12 476 pg/mL (200-900)
== END 2020-12-21 16:04 | disposition home or self-care (01) ==
LOC: HO.LAB 16:03
PROVIDERS: PCP Internal Medicine; Visit Provider Internal Medicine Infectious Disease
DX: Z11.4 Encounter for screening for human immunodeficiency virus [HIV] (principal); F32.3 Major depressive disorder, single episode, severe with psychotic features
CPT/HCPCS: 36415; 82565; 82607; 84450; 84460; 86780; 87116; 87389